=== PATIENT | female | born 1955 | race Caucasian/White ===

== ENCOUNTER 2016-12-01 11:06 | Emergency (ER) | payer MEDICAID ==
[2016-12-01] MEDS ORDERED: HYDROmorphone 1 MG/ML SYRINGE IM STA (11:37)
[2016-12-01] MEDS ORDERED: PROMETHAZINE 25 MG/1 ML VIAL IM STA (11:38)
[2016-12-01] MEDS ORDERED: DEXAMETHASONE 10 MG/ML VIAL PO STA (11:38)
[2016-12-01] MEDS ORDERED: DEXAMETHASONE 10 MG/ML VIAL ONE (11:40)
[2016-12-01] MEDS ORDERED: PROMETHAZINE 25 MG/1 ML VIAL ONE (11:40)
[2016-12-01] MEDS ORDERED: HYDROmorphone 1 MG/ML SYRINGE ONE (11:40)
[2016-12-01] MEDS ORDERED: CHERRY SYRUP 10 ML UDC PO ONE (11:40)
[2016-12-01] MEDS ORDERED: KETOROLAC 60 MG/2 ML VIAL IVP STA (12:24)
[2016-12-01] MEDS ORDERED: LORazepam 2 MG/ML SYRINGE IVP STA (12:25)
[2016-12-01] MEDS ORDERED: KETOROLAC 30 MG/ML VIAL ONE (12:44)
[2016-12-01] MEDS ORDERED: LORazepam 2 MG/ML SYRINGE ONE (12:45)
== END 2016-12-01 13:25 | disposition home or self-care (01) ==
DX: M54.41 Lumbago with sciatica, right side (principal); I10 Essential (primary) hypertension; I25.2 Old myocardial infarction; Z95.5 Presence of coronary angioplasty implant and graft; Z79.02 Long term (current) use of antithrombotics/antiplatelets; F17.200 Nicotine dependence, unspecified, uncomplicated
CPT/HCPCS: 96372; 96374; 96375; 99283; 99284; A9270; J1170; J2060

== ENCOUNTER 2017-01-25 09:21 | Emergency (ER) | payer MEDICAID ==
--- NOTE | 2017-01-25 10:11 | XRAY Preliminary Report ---
Exam: XR Chest 2 View PA/LAT IMPRESSION: No acute cardiopulmonary changes. [facility] SITE ID: [id number]
--- NOTE | 2017-01-25 10:13 | XRAY Report ---
EXAM: CHEST RADIOGRAPHY EXAM DATE: 01/25/2017 09:57 AM. CLINICAL HISTORY: Cough x 1 week. COMPARISON: 09/12/2016. TECHNIQUE: 2 views. FINDINGS: Heart size appears normal. No pulmonary consolidation or edema. No pleural effusion. Present tips elijah nt over the upper abdomen. IMPRESSION: No acute cardiopulmonary changes. [facility] Referring Provider Line: [phone] SITE ID: [id number]
[2017-01-25] MEDS ORDERED: CHERRY SYRUP 10 ML UDC PO ONE (10:25)
[2017-01-25] MEDS ORDERED: DEXAMETHASONE 10 MG/ML VIAL ONE (10:25)
[2017-01-25] MEDS: DEXAMETHASONE 10 MG/ML VIAL PO STA (10:28)
[2017-01-25] MEDS ORDERED: IPRATROPIUM/ALBUTEROL 3 ML NEB INH ONE (10:38)
[2017-01-25] MEDS: IPRATROPIUM/ALBUTEROL 3 ML NEB INH STA (10:50)
--- NOTE | 2017-01-25 11:20 | ED Physician Documentation ---
PD HPI DYSPNEA - Stated complaint Stated Complaint: SOA - Chief complaint Chief Complaint: Resp - History obtained from History obtained from: Patient - History of Present Illness Timing - onset: How many days ago (4) Timing - onset during: Rest Timing - duration: Days (4) Timing - details: Gradual onset, Still present Inciting event(s): URI Improved by: Inhaler/neb Worsened by: Coughing Associated symptoms: Cough, Wheezing Similar symptoms before: Diagnosis (asthma) Recently seen: Clinic (The patient has just been released by the vascular doctor to have her back surgery.) - Additional information Additional information: 61 y/o female with a 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 She did not feel like the inhaler helped that much with the dyspnea. Review of Systems Constitutional: reports: Chills, Fatigue. denies: Fever Eyes: denies: Decreased vision Ears: reports: Ear pain, Drainage/discharge Nose: reports: Rhinorrhea / runny nose, Congestion Throat: denies: Sore throat Cardiac: reports: Palpitations. 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 : None HEENT: None Psych: None Musculoskeletal: None Derm: None - Past Surgical History Past Surgical History: Yes General: Bowel surgery /WASTEWATER ANALYST: Hysterectomy Cardiovascular: Other - Present Medications Home Medications: Ambulatory Orders Medication Instructions Recorded Confirmed Diazepam 5 mg PO Q8H PRN 02/14/16 01/25/17 Estradiol [Divigel] 0.5 mg ORAL DAILY 02/14/16 01/25/17 Promethazine [Phenergan] 25 mg PO TID PRN 02/14/16 01/25/17 Fluoxetine HCl [Prozac] 60 mg PO DAILY 09/12/16 01/25/17 Hydrochlorothiazide 12.5 mg PO DAILY 09/12/16 01/25/17 Levothyroxine Sodium 150 mcg PO DAILY 09/12/16 01/25/17 Liothyronine Sodium 5 mcg PO BID 09/12/16 01/25/17 Cyclobenzaprine [Flexeril] 10 mg PO TID PRN #20 tablet 12/01/16 01/25/17 oxyCODONE/ACET 5/325 [Percocet 5 1 - 2 tab PO Q4-6H PRN #20 tablet 12/01/1607/04 mg/325 mg] Azithromycin [Zithromax] 250 mg PO DAILY #6 tablet 01/25/17 Dexamethasone 1 mg PO DAILY 01/25/17 01/25/17 - Allergies Allergies/Adverse Reactions: Allergies Allergy/AdvReac Type Severity Reaction Status Date / Time atorvastatin calcium * AdvReac Cramps Verified 09/12/16 12:47 [From Lipitor] codeine AdvReac Nausea Verified 09/11/16 16:42 simvastatin AdvReac Cramps Verified 09/12/16 12:47 - Social History Does the pt smoke?: Yes Smoking Status: Current every day smoker Does the pt drink ETOH?: No Does the pt have substance abuse?: Yes Substance Use and Type: Marijuana - Immunizations Immunizations are current?: No Immunizations: TDAP >10years/unknown - POLST Patient has POLST: No PD ED PE NORMAL - Vitals Vital signs reviewed: Yes (tachy, tachypneic and hypertensive ) - General General: No acute distress, Well developed/nourished - HEENT HEENT: Atraumatic, PERRL, EOMI, Other (The lerft TM is inflammed in the attic with rounding of the umbo. The right is clear. ) - Neck Neck: Supple, no meningeal sign, No bony TTP - Cardiac Cardiac: No murmur, Other (tachy ) - Respiratory Respiratory: Other (course breath sounds bilaterally with diminished air movement. ) - Abdomen Abdomen: Soft, Non tender - Back Back: No CVA TTP, No spinal TTP - Derm Derm: Normal color, Warm and dry, No rash - Extremities Extremities: No deformity, No edema - Neuro Neuro: No motor deficit, No sensory deficit - Psych Psych: Normal mood, Normal affect Results - Vitals Vitals: Vital Signs - 24 hr 01/25/17 01/25/17 01/25/17 09:25 10:50 12:14 Temperature 36.2 C L Heart Rate 101 H 78 86 Respiratory 28 H 20 20 Rate Blood Pressure 156/83 H 131/75 H O2 Saturation 97 95 Oxygen O2 Source Room air - Labs Labs: Laboratory Tests 01/25/17 01/25/17 01/25/17 11:55 11:55 11:55 WBC 12.0 H RBC 4.29 Hgb 13.5 Hct 38.9 MCV 90.7 MCH 31.5 H MCHC 34.8 RDW 15.2 H MPV 7.3 L Manual Slide Review Indicated Sodium Potassium Chloride Carbon Dioxide Anion Gap BUN Creatinine Estimated GFR (MDRD) Glucose Calcium Total Bilirubin AST ALT Alkaline Phosphatase Troponin I < 0.04 B-Natriuretic Peptide 45 Total Protein Albumin Globulin Albumin/Globulin Ratio Lipase 01/25/17 11:55 WBC RBC Hgb Hct MCV MCH MCHC RDW MPV Manual Slide Review Sodium 140 Potassium 3.5 Chloride 102 Carbon Dioxide 26 Anion Gap 12.0 BUN 23 H Creatinine 1.1 H Estimated GFR (MDRD) 50 L Glucose 100 Calcium 8.9 Total Bilirubin 0.7 AST 16 ALT 29 Alkaline Phosphatase 75 Troponin I B-Natriuretic Peptide Total Protein 6.7 Albumin 3.7 Globulin 3.0 Albumin/Globulin Ratio 1.2 Lipase 46 - Rads (name of study) 2 veiw chest Radiology: Prelim report reviewed (Impression: 1. Mild hyperinflation. 2. No acute disease.), EMP read indepedently, See rad report Departure - Departure Disposition: 01 Home, Self Care Clinical Impression: Otitis media Qualifiers: Otitis media type: suppurative Laterality: left Chronicity: acute Recurrence: not specified as recurrent Spontaneous tympanic membrane rupture: without spontaneous rupture Qualified Code(s): H66.002 - Acute suppurative otitis media without spontaneous rupture of ear drum, left ear Reactive airway disease Qualifiers: Asthma severity: mild intermittent Asthma complication type: with acute exacerbation Qualified Code(s): J45.21 - Mild intermittent asthma with (acute) exacerbation Instructions: ED Bronchitis Asthmatic, ED Otitis Media Acute Adult Follow-Up: Ino Bustos MD [Primary Care Provider] - Prescriptions: Azithromycin [Zithromax] 250 mg PO DAILY #6 tablet
[2017-01-25 12:15] VITALS: BP 131/75
[2017-01-25 12:16] LABS: BASOPHILS % (AUTO) 0.4 %; EOSINOPHILS # (AUTO) 0.1 10^3/uL (0.0-0.7); EOSINOPHILS % (AUTO) 0.9 %; HCT - HEMATOCRIT 38.9 % (37.0-47.0); HGB - HEMOGLOBIN 13.5 g/dL (12.0-16.0); LYMPHOCYTES # (AUTO) 1.7 10^3/uL (1.5-3.5); LYMPHOCYTES % (AUTO) 13.9 %; MEAN CORPUSCULAR HEMOGLOBIN 31.5 pg (27.0-31.0); MEAN CORPUSCULAR HGB CONC 34.8 g/dL (32.0-36.0); MEAN CORPUSCULAR VOLUME 90.7 fL (81.0-99.0); MEAN PLATELET VOLUME 7.3 fL (7.9-10.8); MONOCYTES # (AUTO) 0.4 10^3/uL (0.0-1.0); MONOCYTES % (AUTO) 3.3 %; NEUTROPHILS # (AUTO) 9.8 10^3/uL (1.5-6.6); NEUTROPHILS % (AUTO) 81.5 %; NUCLEATED RED BLOOD CELLS AUTO 0.1 /100WBC; RED BLOOD COUNT 4.29 10^6/uL (4.20-5.40); RED CELL DISTRIBUTION WIDTH 15.2 % (12.0-15.0)
[2017-01-25 12:18] LABS: ALBUMIN/GLOBULIN RATIO 1.2 (1.0-2.2); BILIRUBIN,TOTAL 0.7 mg/dL (0.2-1.0); CALCIUM 8.9 mg/dL (8.5-10.3); CREATININE 1.1 mg/dL (0.4-1.0); POTASSIUM 3.5 mmol/L (3.5-5.0); TOTAL PROTEIN 6.7 g/dL (6.7-8.2)
[2017-01-25 12:32] LABS: PLATELET ESTIMATE, MANUAL NORMAL (130-450,000) (NORMAL)
== END 2017-01-25 12:29 | disposition home or self-care (01) ==
LOC: ED 09:21
DX: J45.21 Mild intermittent asthma with (acute) exacerbation (principal); H66.002 Acute suppurative otitis media without spontaneous rupture of ear drum, left ear; I11.0 Hypertensive heart disease with heart failure; I50.9 Heart failure, unspecified; I25.2 Old myocardial infarction; E78.00 Pure hypercholesterolemia, unspecified; F17.200 Nicotine dependence, unspecified, uncomplicated
CPT/HCPCS: 71020; 80053; 83690; 83880; 84484; 85025; 94640; 99283; 99284

== ENCOUNTER 2017-02-03 08:45 | Emergency (ER) | payer MEDICAID ==
--- NOTE | 2017-02-03 09:49 | ED Physician Documentation ---
PD HPI BACK PAIN - Stated complaint Stated Complaint: BACK PAIN - Chief complaint Chief Complaint: Back Pain - History obtained from History obtained from: Patient - History of Present Illness Timing - onset: How many weeks ago (woorse the past 2 weeks) Timing - duration: Weeks (has had low back pain for over a year, but worse the past 2 weeks. No new injury.) Timing - details: Gradual onset, Waxing and waning Location: Lower Quality: Pain, Spasm Improves with: Rest. 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 : None HEENT: None Psych: None Musculoskeletal: None Derm: None - Past Surgical History Past Surgical History: Yes General: Bowel surgery /STRIPPER OPAQUER: Hysterectomy Cardiovascular: Other - Present Medications Home Medications: Ambulatory Orders Medication Instructions Recorded Confirmed Diazepam 5 mg PO Q8H PRN 02/14/16 02/03/17 Estradiol [Divigel] 0.5 mg ORAL DAILY 02/14/16 02/03/17 Promethazine [Phenergan] 25 mg PO TID PRN 02/14/16 02/03/17 Fluoxetine HCl [Prozac] 60 mg PO DAILY 09/12/16 02/03/17 Hydrochlorothiazide 12.5 mg PO DAILY 09/12/16 02/03/17 Levothyroxine Sodium 150 mcg PO DAILY 09/12/16 02/03/17 Liothyronine Sodium 5 mcg PO BID 09/12/16 02/03/17 Cyclobenzaprine [Flexeril] 10 mg PO TID PRN #20 tablet 12/01/16 02/03/17 oxyCODONE/ACET 5/325 [Percocet 5 1 - 2 tab PO Q4-6H PRN #20 tablet 12/01/16 mg/325 mg] Azithromycin [Zithromax] 250 mg PO DAILY #6 tablet 01/25/17 02/03/17 Dexamethasone 1 mg PO DAILY 01/25/17 02/03/17 Dimethazone 02/03/17 Oxycodone HCl/Acetaminophen 1 each PO Q6H PRN #20 tablet 02/03/17 [Percocet 5-325 mg Tablet] - Allergies Allergies/Adverse Reactions: Allergies Allergy/AdvReac Type Severity Reaction Status Date / Time atorvastatin calcium * AdvReac Cramps Verified 09/12/16 12:47 [From Lipitor] codeine AdvReac Nausea Verified 09/11/16 16:42 simvastatin AdvReac Cramps Verified 09/12/16 12:47 - Social History Does the pt smoke?: Yes Smoking Status: Current every day smoker Does the pt drink ETOH?: No Does the pt have substance abuse?: Yes Substance Use and Type: Marijuana - Immunizations Immunizations are current?: No Immunizations: TDAP >10years/unknown - POLST Patient has POLST: No PD ED PE NORMAL - Vitals Vital signs reviewed: Yes - General General: Alert and oriented X 3, Well developed/nourished - HEENT HEENT: Atraumatic - Cardiac Cardiac: RRR - Respiratory Respiratory: Clear bilaterally - Abdomen Abdomen: Soft, Non tender - Back Back: No spinal TTP (tender lumbar muscles both sides, right more than left) - Derm Derm: Normal color, Warm and dry, No rash - Neuro Neuro: Alert and oriented X 3, No motor deficit, No sensory deficit, Other (1+ reflexes at knees) Results - Vitals Vitals: Oxygen O2 Source Room air PD MEDICAL DECISION MAKING - ED course Complexity details: considered differential, d/w patient Departure - Departure Disposition: Home, Self Care Clinical Impression: Low back pain Qualifiers: Chronicity: chronic Back pain laterality: right Sciatica presence: with sciatica Sciatica laterality: sciatica of right side Qualified Code(s): M54.41 - Lumbago with sciatica, right side Condition: Stable Record reviewed to determine appropriate education?: Yes Instructions: ED Sciatica Prescriptions: Oxycodone HCl/Acetaminophen [Percocet 5-325 mg Tablet] 1 each PO Q6H PRN #20 tablet PRN Reason: Pain Comments: Usual medications with increased oxycodone to 1-2 every 4-6 hours as needed for acute flare up. Follow up with Pain Clinic Monday as planned. Return if worse symptoms. Discharge Date/Time: 02/03/17 11:23
[2017-02-03] MEDS ORDERED: HYDROmorphone 1 MG/ML SYRINGE IM STA (10:11)
[2017-02-03] MEDS ORDERED: KETOROLAC 60 MG/2 ML VIAL IM STA (10:11)
[2017-02-03] MEDS ORDERED: ONDANSETRON ODT 4 MG TABLET TL STA (10:11)
[2017-02-03] MEDS ORDERED: HYDROmorphone 1 MG/ML SYRINGE ONE (10:14)
[2017-02-03] MEDS ORDERED: KETOROLAC 60 MG/2 ML VIAL ONE (10:14)
[2017-02-03] MEDS ORDERED: ONDANSETRON ODT 4 MG TABLET ONE (10:14)
[2017-02-03 11:23] VITALS: BP 158/88
== END 2017-02-03 11:23 | disposition home or self-care (01) ==
LOC: ED 08:45
DX: M54.41 Lumbago with sciatica, right side (principal); I11.0 Hypertensive heart disease with heart failure; I50.9 Heart failure, unspecified; E78.00 Pure hypercholesterolemia, unspecified; I25.2 Old myocardial infarction; K21.9 Gastro-esophageal reflux disease without esophagitis; F17.200 Nicotine dependence, unspecified, uncomplicated
CPT/HCPCS: 96372; 99283; J1170; Q0162

== ENCOUNTER 2017-02-22 12:11 | Emergency (ER) | payer MEDICAID ==
[2017-02-22 12:20] VITALS: BP 168/102
== END 2017-02-22 15:05 | disposition left against medical advice (07) ==
LOC: ED 12:11
DX: Z53.21 Procedure and treatment not carried out due to patient leaving prior to being seen by health care provider (principal)

== ENCOUNTER 2017-02-23 07:46 | Emergency (ER) | payer MEDICAID ==
[2017-02-23] MEDS ORDERED: HYDROmorphone 1 MG/ML SYRINGE IM STA (08:16)
[2017-02-23] MEDS ORDERED: PROMETHAZINE 25 MG/1 ML VIAL IM STA (08:16)
[2017-02-23] MEDS ORDERED: HYDROmorphone 1 MG/ML SYRINGE ONE (08:21)
[2017-02-23] MEDS ORDERED: PROMETHAZINE 25 MG/1 ML VIAL ONE (08:21)
--- NOTE | 2017-02-23 09:02 | ED Physician Documentation ---
PD HPI BACK PAIN - Stated complaint Stated Complaint: BACK AND LEG PX - Chief complaint Chief Complaint: Back Pain - History obtained from History obtained from: Patient, Family (domestic partner) - History of Present Illness Timing - onset: Chronic (Worse during the past month, and especially during the past week, since stopping steroid therapy.) Timing - details: Still present Location: Lower Quality: Pain, Similar to prior episodes Associated symptoms: No: Fever, Weakness, Numbness, Incontinent of urine Worsened by: Movement Similar symptoms before: Work up / diagnostics (She underwent MRI of the lumbar spine one week ago, and is scheduled for procedure of her lumbar spine next week at [facility].) - Treatment prior to arrival Treatment prior to arrival: Percocet 2 tablets daily. - Additional information Additional information: The patient is a 61-year-old female who presents with lower back pain radiating down her right leg to her foot. She has a history of chronic back pain but complains that it has been getting worse for the past month, and particularly during the past week. She was seen by a painter hand one week ago , and dexamethasone was stopped at that time. She underwent an MRI of her lumbar spine and is reportedly scheduled for a procedure of her lumbar spine next week at [facility]. She denies recent fever, urinary incontinence, abdominal symptoms, numbness or weakness. She is currently taking Percocet 2 tablets daily. Her past medical history is significant for coronary artery disease for which she is status post coronary stents. 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 Review of Systems Constitutional: denies: Fever Nose: denies: Congestion Throat: denies: Sore throat Cardiac: denies: Chest pain / pressure Respiratory: denies: Dyspnea, Cough GI: denies: Abdominal Pain, Nausea, Vomiting : denies: Dysuria, Incontinent Skin: denies: Rash Musculoskeletal: reports: Back pain. 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 : None HEENT: None Psych: None Musculoskeletal: None Derm: None - Past Surgical History Past Surgical History: Yes General: Bowel surgery /COPIER OPERATOR: Hysterectomy Cardiovascular: Other - Present Medications Home Medications: Ambulatory Orders Medication Instructions Recorded Confirmed Diazepam 5 mg PO Q8H PRN 02/14/16 02/22/17 Estradiol [Divigel] 0.5 mg ORAL DAILY 02/14/16 02/22/17 Promethazine [Phenergan] 25 mg PO TID PRN 02/14/16 02/22/17 Fluoxetine HCl [Prozac] 60 mg PO DAILY 09/12/16 02/22/17 Hydrochlorothiazide 12.5 mg PO DAILY 09/12/16 02/22/17 Levothyroxine Sodium 150 mcg PO DAILY 09/12/16 02/22/17 Liothyronine Sodium 5 mcg PO BID 09/12/16 02/22/17 Cyclobenzaprine [Flexeril] 10 mg PO TID PRN #20 tablet 12/01/16 02/22/17 Oxycodone HCl/Acetaminophen 1 each PO Q6H PRN #20 tablet 02/03/17 02/22/17 [Percocet 5-325 mg Tablet] Omeprazole [PriLOSEC] 10 mg PO 02/22/17 oxyCODONE/ACET 5/325 [Percocet 5 1 - 2 tab PO Q4-6H PRN #15 tablet 02/23/17 mg/325 mg] - Allergies Allergies/Adverse Reactions: Allergies Allergy/AdvReac Type Severity Reaction Status Date / Time atorvastatin calcium * AdvReac Cramps Verified 02/22/17 12:19 [From Lipitor] codeine AdvReac Nausea Verified 02/22/17 12:19 simvastatin AdvReac Cramps Verified 02/22/17 12:19 - Social History Does the pt smoke?: Yes Smoking Status: Current every day smoker Does the pt drink ETOH?: No Does the pt have substance abuse?: Yes - Immunizations Immunizations are current?: No Immunizations: TDAP >10years/unknown - POLST Patient has POLST: No PD ED PE NORMAL - Vitals Vital signs reviewed: Yes (borderline hypertension) - General General: Alert and oriented X 3, Other (Overweight, deconditioned female.) - HEENT HEENT: Atraumatic, EOMI, Pharynx benign - Neck Neck: No bony TTP, No JVD - Cardiac Cardiac: RRR, No murmur - Respiratory Respiratory: No respiratory distress, Clear bilaterally - Abdomen Abdomen: Soft, Non tender - Back Back: No CVA TTP, Other (Tenderness to palpation in the right paralumbar region , and over the right sciatic notch.) - Derm Derm: No rash - Extremities Extremities: No edema, No calf tenderness / cord, Other (Straight leg raise is positive on the right at 30 elevation. Negative on the left.) - Neuro Neuro: Alert and oriented X 3, No motor deficit, No sensory deficit, Other ( Normal perianal sensation.) Results - Vitals Vitals: Oxygen O2 Source Room air PD MEDICAL DECISION MAKING - ED course Complexity details: reviewed old records, reviewed results, re-evaluated patient , considered differential, d/w patient, d/w family ED course: The patient's presentation is significant for acute exacerbation of chronic low back pain, with right-sided sciatica. There is no clinical evidence to suggest epidural abscess, or cauda equina syndrome. Treatment in the emergency department included administration of hydromorphone 2 mg IM, with Phenergan 12.5 mg IM. This decreased the patient's discomfort. I discussed with her and her casualty underwriter symptomatic treatment, outpatient follow-up, as well as potentially worrisome signs or symptoms that should prompt reevaluation in the emergency department. Departure - Departure Disposition: 01 Home, Self Care Clinical Impression: Low back pain Qualifiers: Chronicity: acute Back pain laterality: right Sciatica presence: with sciatica Sciatica laterality: sciatica of right side Qualified Code(s): M54.41 - Lumbago with sciatica, right side Sciatica Qualifiers: Laterality: right Qualified Code(s): M54.31 - Sciatica, right side Condition: Stable Instructions: ED Sciatica Follow-Up: Ino Bustos MD [Primary Care Provider] - Prescriptions: oxyCODONE/ACET 5/325 [Percocet 5 mg/325 mg] 1 - 2 tab PO Q4-6H PRN #15 tablet PRN Reason: Pain Comments: 1) Apply ice pack intermittently. 2) Continue using Percocet as prescribed, if needed for pain. 3)Follow up with the Back Specialist as planned. 4) Return to Emergency if you develop increasing pain, fever, increasing numbness or weakness, or otherwise worsening symptoms. Discharge Date/Time: 02/23/17 09:16
[2017-02-23 09:14] VITALS: BP 125/83
== END 2017-02-23 09:16 | disposition home or self-care (01) ==
LOC: ED 07:46
DX: M54.41 Lumbago with sciatica, right side (principal); I11.0 Hypertensive heart disease with heart failure; I50.9 Heart failure, unspecified; E78.00 Pure hypercholesterolemia, unspecified; I25.2 Old myocardial infarction; K21.9 Gastro-esophageal reflux disease without esophagitis; F17.200 Nicotine dependence, unspecified, uncomplicated
CPT/HCPCS: 96372; 99283; 99284; J1170

== ENCOUNTER 2017-06-09 07:50 | Emergency (ER) | payer MEDICAID ==
[2017-06-09] MEDS ORDERED: NITROGLYCERIN SL 0.4 MG TABLET SL STA (08:11)
[2017-06-09] MEDS ORDERED: ASPIRIN CHEW 81 MG TABLET PO STA (08:11)
--- NOTE | 2017-06-09 08:19 | ED Physician Documentation ---
History of Present Illness - Stated complaint Stated Complaint: CHEST PX, SOA, HIGH BP, FAST PULSE - Chief complaint Chief Complaint: General - Additonal information Additional information: hx from pt 61 f hx CAD s/p 2 stents January 2016 revised Jul 2016 Prov Rahul not in asa or plavix all to statin BP was too low for BB also to ER today with cp and soa states she has been having int chest pain for a while now but yesterday became very soa, again having int sharp chest pain and then approx 1 hr of severe R posterior shoulder pain no travel no leg swelling chronic leg pain 2/2 back issues no fever cough PD PAST MEDICAL HISTORY - Past Medical History Past Medical History: Yes Cardiovascular: Congestive heart failure, Hypertension, High cholesterol, [place] Respiratory: None Neuro: None Endocrine/Autoimmune: None GI: GERD, Other 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 : None HEENT: None Psych: None Musculoskeletal: None Derm: None - Past Surgical History Past Surgical History: Yes General: Bowel surgery /RESIDENTIAL REMODELING 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: Hysterectomy Cardiovascular: Other - Present Medications Home Medications: Ambulatory Orders Medication Instructions Recorded Confirmed Diazepam 5 mg PO Q8H PRN 02/14/16 02/22/17 Estradiol [Divigel] 0.5 mg ORAL DAILY 02/14/16 02/22/17 Promethazine [Phenergan] 25 mg PO TID PRN 02/14/16 02/22/17 Fluoxetine HCl [Prozac] 60 mg PO DAILY 09/12/16 02/22/17 Hydrochlorothiazide 12.5 mg PO DAILY 09/12/16 02/22/17 Levothyroxine Sodium 150 mcg PO DAILY 09/12/16 02/22/17 Liothyronine Sodium 5 mcg PO BID 09/12/16 02/22/17 Cyclobenzaprine [Flexeril] 10 mg PO TID PRN #20 tablet 12/01/16 02/22/17 Oxycodone HCl/Acetaminophen 1 each PO Q6H PRN #20 tablet 02/03/17 02/22/17 [Percocet 5-325 mg Tablet] Omeprazole [PriLOSEC] 10 mg PO 02/22/17 oxyCODONE/ACET 5/325 [Percocet 5 1 - 2 tab PO Q4-6H PRN #15 tablet 02/23/17 mg/325 mg] - Allergies Allergies/Adverse Reactions: Allergies Allergy/AdvReac Type Severity Reaction Status Date / Time atorvastatin calcium * AdvReac Cramps Verified 02/22/17 12:19 [From Lipitor] codeine AdvReac Nausea Verified 02/22/17 12:19 simvastatin AdvReac Cramps Verified 02/22/17 12:19 - Social History Does the pt smoke?: Yes Smoking Status: Current every day smoker Does the pt drink ETOH?: No Does the pt have substance abuse?: Yes - Immunizations Immunizations are current?: No Immunizations: TDAP >10years/unknown - POLST Patient has POLST: No PD ED PE NORMAL - Vitals Vital signs reviewed: Yes - Cardiac Cardiac: RRR - Respiratory Respiratory: Clear bilaterally. No: No respiratory distress (mildly labored and tachypneic) - Abdomen Abdomen: Soft, Non tender - Derm Derm: Normal color - Extremities Extremities: No deformity, Other (+ leg pain but now new) - Neuro Neuro: Alert and oriented X 3, No motor deficit, No sensory deficit - Psych Psych: Normal mood Results - Vitals Vitals: Vital Signs - 24 hr 06/09/17 06/09/17 06/09/17 07:55 08:56 09:00 Temperature 36.9 C Heart Rate 77 70 72 Respiratory 20 23 24 Rate Blood Pressure 139/97 H 102/68 122/79 O2 Saturation 97 95 95 06/09/17 06/09/17 06/09/17 09:30 10:00 10:30 Temperature Heart Rate 70 66 62 Respiratory 18 24 21 Rate Blood Pressure 107/75 110/70 115/69 O2 Saturation 95 96 95 06/09/17 13:01 Temperature Heart Rate 65 Respiratory 22 Rate Blood Pressure 136/84 H O2 Saturation 93 Oxygen O2 Source Room air - EKG (time done) 0806 Rate: Rate (enter#) (77) Rhythm: NSR Browder: Normal Other comments: Other comments (pt shaky and there is so much baseline artifact it is very difficult to asses for ST elev or depr) 0939 Rate: Rate (enter#) (67) Rhythm: NSR Intervals: Normal MD Ischemia: Q waves (inf), Non specific changes (slightly flattened T waves laterall) Compare to prior EKG: Changed from prior EKG (better EKG with less artifact then EKG #1) - Labs Labs: Laboratory Tests 09/06/09/17 06/09/17 08:40 08:40 08:40 WBC 13.3 H RBC 4.31 Hgb 13.9 Hct 38.9 MCV 90.2 MCH 32.2 H MCHC 35.6 RDW 13.4 Plt Count 228 MPV 6.7 L Neut # 9.8 H Lymph # 2.7 Story # 0.7 Eos # 0.0 Baso # 0.1 Absolute Nucleated RBC 0.00 Nucleated RBCs 0.0 D-Dimer > 1050.0 H Sodium 142 Potassium 3.4 L Chloride 105 Carbon Dioxide 24 Anion Gap 13.0 BUN 21 H Creatinine 1.1 H Estimated GFR (MDRD) 50 L Glucose 85 Calcium 9.7 Total Bilirubin 0.8 AST 21 ALT 28 Alkaline Phosphatase 85 Troponin I B-Natriuretic Peptide Total Protein 7.3 Albumin 4.0 Globulin 3.3 Albumin/Globulin Ratio 1.2 Lipase 06/09/17 06/09/17 06/09/17 08:40 08:40 11:20 WBC RBC Hgb Hct MCV MCH MCHC RDW Plt Count MPV Neut # Lymph # Story # Eos # Baso # Absolute Nucleated RBC Nucleated RBCs D-Dimer Sodium Potassium Chloride Carbon Dioxide Anion Gap BUN Creatinine Estimated GFR (MDRD) Glucose Calcium Total Bilirubin AST ALT Alkaline Phosphatase Troponin I 0.08 0.08 B-Natriuretic Peptide 119 H Total Protein Albumin Globulin Albumin/Globulin Ratio Lipase - Rads (name of study) CXR Radiology: See rad report (NACPD) CTPA Radiology: See rad report (extensive richard pulm emboli with RV strain and infarcts , also occluded prox SMA stent ) PD MEDICAL DECISION MAKING - ED course ED course: bilateral main pulm artery emboli with infacrts and R heart strain but not hypotension, also possible SMA occlusion started heparin and will transfer to tertiary care facility where IR TPA is available spoke to hospitalist and grey percher at [facility] and they accept pt in transfer Departure - Departure Disposition: 02 Transfer Acute Care Hosp Clinical Impression: Pulmonary embolism and infarction
[2017-06-09] MEDS ORDERED: NITROGLYCERIN SL 0.4 MG TABLET SL ONE (08:25)
[2017-06-09] MEDS ORDERED: ASPIRIN CHEW 81 MG TABLET ONE (08:25)
[2017-06-09] MEDS ORDERED: SODIUM CHLORIDE FLUSH 0.9% 10 ML SYRINGE IVP ONE (08:45)
--- NOTE | 2017-06-09 08:48 | XRAY Preliminary Report ---
Exam: XR Chest 1 View IMPRESSION: Negative for acute cardiopulmonary process or cardiomegaly. [facility] SITE ID: [id number]
--- NOTE | 2017-06-09 08:51 | XRAY Report ---
EXAM: CHEST RADIOGRAPHY EXAM DATE: 06/09/2017 08:31 AM. CLINICAL HISTORY: Soa, chest pain. COMPARISON: 01/25/2017. TECHNIQUE: 1 view. FINDINGS: Lungs/Pleura: No focal opacities evident. No pleural effusion. No pneumothorax. Mediastinum: Within exam limitations, cardiomediastinal contour is normal. IMPRESSION: Negative for acute cardiopulmonary process or cardiomegaly. [facility] Referring Provider Line: [phone] SITE ID: [id number]
[2017-06-09 08:59] LABS: BASOPHILS # (AUTO) 0.1 10^3/uL (0.0-0.1); BASOPHILS % (AUTO) 0.7 %; EOSINOPHILS % (AUTO) 0.2 %; HCT - HEMATOCRIT 38.9 % (37.0-47.0); HGB - HEMOGLOBIN 13.9 g/dL (12.0-16.0); LYMPHOCYTES # (AUTO) 2.7 10^3/uL (1.5-3.5); LYMPHOCYTES % (AUTO) 20.2 %; MEAN CORPUSCULAR HEMOGLOBIN 32.2 pg (27.0-31.0); MEAN CORPUSCULAR HGB CONC 35.6 g/dL (32.0-36.0); MEAN CORPUSCULAR VOLUME 90.2 fL (81.0-99.0); MEAN PLATELET VOLUME 6.7 fL (7.9-10.8); MONOCYTES # (AUTO) 0.7 10^3/uL (0.0-1.0); MONOCYTES % (AUTO) 5.4 %; NEUTROPHILS # (AUTO) 9.8 10^3/uL (1.5-6.6); NEUTROPHILS % (AUTO) 73.5 %; RED BLOOD COUNT 4.31 10^6/uL (4.20-5.40); RED CELL DISTRIBUTION WIDTH 13.4 % (12.0-15.0); UNCORRECTED WHITE BLOOD COUNT 13.3 x10^3/uL; WHITE BLOOD COUNT 13.3 x10^3/uL (4.8-10.8)
[2017-06-09 09:41] LABS: ALBUMIN/GLOBULIN RATIO 1.2 (1.0-2.2); BILIRUBIN,TOTAL 0.8 mg/dL (0.2-1.0); CALCIUM 9.7 mg/dL (8.5-10.3); CREATININE 1.1 mg/dL (0.4-1.0); POTASSIUM 3.4 mmol/L (3.5-5.0); TOTAL PROTEIN 7.3 g/dL (6.7-8.2)
[2017-06-09] MEDS ORDERED: IOPAMIDOL-300 100 ML VIAL ONE (11:38)
[2017-06-09] MEDS ORDERED: IOPAMIDOL-300 100 ML VIAL IVP ONE (12:07)
[2017-06-09] MEDS ORDERED: HEPARIN 5,000 UNIT/ML VIAL IVP ONE (12:39)
[2017-06-09] MEDS ORDERED: HEPARIN 25000UNITS/500ML (D5W) 500 ML IV STA (12:39)
[2017-06-09] MEDS ORDERED: HEPARIN 5,000 UNIT/ML VIAL ONE (12:48)
[2017-06-09] MEDS ORDERED: HEPARIN 25000UNITS/500ML (D5W) 500 ML IV ONE (12:48)
--- NOTE | 2017-06-09 13:00 | CT Report ---
EXAM: CT ANGIOGRAM CHEST EXAM DATE: 06/09/2017 12:08 PM. CLINICAL HISTORY: Cp soa d dimer too high to calculate. COMPARISON: None. TECHNIQUE: Routine helical imaging was performed through the chest in the pulmonary arterial phase. I V Contrast: 80 cc of Isovue 300. Reconstructions: Coronal 3-D MIP reconstructions.Sagittal and anderson l. In accordance with CT protocol optimization, one or more of the following dose reduction techniques w ere utilized for this exam: automated exposure control, adjustment of mA and/or KV based on patient s ize, or use of iterative reconstructive technique. FINDINGS: There is adequate opacification of the pulmonary arteries extensive pulmonary emboli are seen within the distal right and left main pulmonary emboli extending into the upper, middle and lower lobes of b oth lungs. These are most advanced in the right lower lobe of the lung. The RV LV ratio is approximat mauricio 1.6. Contrast is seen within the hepatic vein. There is no evidence of a saddle embolus. Increase d lung markings are noted within the anterior aspect of the right upper lobe of the lung. The largest area measures approximately 1.4 x 1.1 cm (image 45 of series 6). There is no pleural effusion or pneumothorax seen. A stent is noted within the SMA. It appears to be occluded. No enhancing lesion is seen within the upper abdomen. There is no mediastinal mass or lymphadenopathy. Atherosclerosis of the aorta is noted. Limited visualization of the splenic flexure of the colon is without evidence of mucosal thickening. Impression: Extensive bilateral pulmonary emboli with probable RV strain. Peripheral based areas of increased lung markings that may represent infarcts within the anterior asp ect of the right upper lobe of the lung. These could also represent infiltrates and less likely atele ctasis. Critical result: Findings discussed with Dr. Gamez at 12:40 PM on 06/09/2017. Stent within the proximal SMA that appears to be occluded. The appearance is less likely secondary to beam hardening artifact. This was discussed with Dr. Gamez at 12:54 PM on 06/09/2017. [facility] Referring Provider Line: [phone] SITE ID: [id number]
[2017-06-09 16:05] VITALS: BP 140/76
== END 2017-06-09 16:03 | disposition short-term general hospital (02) ==
LOC: ED 07:50
DX: I26.99 Other pulmonary embolism without acute cor pulmonale (principal); I25.10 Atherosclerotic heart disease of native coronary artery without angina pectoris; Z95.5 Presence of coronary angioplasty implant and graft
CPT/HCPCS: 36415; 71010; 71275; 80053; 83690; 83880; 84484; 85025; 85379; 93005; 96374; 96376; 99284; A9270; Q9967

== ENCOUNTER 2017-07-02 03:54 | Observation (INO) | payer MEDICAID ==
[2017-07-02] MEDS ORDERED: NITROGLYCERIN SL 0.4 MG TABLET SL STA (04:06)
[2017-07-02] MEDS ORDERED: ASPIRIN CHEW 81 MG TABLET PO STA (04:08)
--- NOTE | 2017-07-02 04:11 | ED Physician Documentation ---
PD HPI CHEST PAIN - Stated complaint Stated Complaint: L ARM/CHEST PAIN - Chief complaint Chief Complaint: Cardiac - History obtained from History obtained from: Patient, Family - History of Present Illness Timing - onset: How many minutes ago (30) Timing - onset during: Sleep Timing - duration: Minutes (30) Timing - details: Abrupt onset Pain level max: 5 Pain level now: 2 Quality: Pressure, Tightness, Sharp, Like prior ACS Location: Substernal Radiation: Other (L arm) Improved by: Nothing Worsened by: No: Exertion, Inspiration, Eating, Movement, Palpation, Position Associated symptoms: No: Shortness of air, Diaphoresis, Nausea, Vomiting, Feeling faint / dizzy, General Weakness, Palpitations, Cough Similar symptoms before: Diagnosis (ACS, Bilateral PE) - Additional information Additional information: Patient is a 61-year-old female who has a history of 2 abdominal stents, both placed in 2016 at [facility] in [place]. Had an SMA stent occlusion approximately 3 weeks ago along with bilateral pulmonary emboli. States that she received medicine through a catheter from her groin as well as being placed on Xarelto. Is not currently on aspirin. States she is currently taking Xarelto twice a day. Also states that she has had difficulty lifting the left arm for the past few days. States pain with lifting of the arm. Describes pain in the deltoid. Does not recall any trauma. Patient also states that she has been treated for pneumonia with levofloxacin. Has not had a chest x-ray. States her doctor is treating her off of clinical symptoms of cough. No fevers. Review of Systems Ten Systems: 10 systems reviewed and negative Constitutional: denies: Fever, Chills Ears: denies: Ear pain Nose: denies: Rhinorrhea / runny nose, Congestion Throat: denies: Sore throat Respiratory: reports: Cough (for several weeks.). 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5 mg PO DAILY 09/12/16 02/22/17 Cyclobenzaprine [Flexeril] 10 mg PO TID PRN #20 tablet 12/01/16 02/22/17 Oxycodone HCl/Acetaminophen 1 each PO Q6H PRN #20 tablet 02/03/17 02/22/17 [Percocet 5-325 mg Tablet] Omeprazole [PriLOSEC] 10 mg PO 02/22/17 Rivaroxaban [Xarelto] 1 tab PO BID 07/02/17 07/02/17 - Allergies Allergies/Adverse Reactions: Allergies Allergy/AdvReac Type Severity Reaction Status Date / Time atorvastatin calcium * AdvReac Cramps Verified 07/02/17 04:04 [From Lipitor] codeine AdvReac Nausea Verified 07/02/17 04:04 simvastatin AdvReac Cramps Verified 07/02/17 04:04 - Social History Does the pt smoke?: Yes Smoking Status: Current every day smoker Does the pt drink ETOH?: No Does the pt have substance abuse?: Yes - Immunizations Immunizations are current?: No Immunizations: TDAP >10years/unknown - POLST Patient has POLST: No PD ED PE NORMAL - Vitals Vital signs reviewed: Yes - General General: Alert and oriented X 3, No acute distress, Well developed/nourished - HEENT HEENT: PERRL, Moist mucous membranes - Neck Neck: Supple, no meningeal sign - Cardiac Cardiac: RRR, Strong equal pulses - Respiratory Respiratory: No respiratory distress, Clear bilaterally - Abdomen Abdomen: Soft, Non tender, Non distended - Derm Derm: Warm and dry - Extremities Extremities: No edema, No calf tenderness / cord, Other (TTP over the L deltoid , reproduces her pain. NVI including the axillary nerve) - Neuro Neuro: Alert and oriented X 3 - Psych Psych: Normal mood, Normal affect Results - Vitals Vitals: Vital Signs - 24 hr 07/02/17 07/02/17 07/02/17 04:00 04:29 04:38 Temperature 36.8 C Heart Rate 83 73 72 Respiratory 18 18 18 Rate Blood Pressure 130/91 H 87/59 L 103/73 O2 Saturation 98 100 94 07/02/17 04:40 Temperature Heart Rate 75 Respiratory 20 Rate Blood Pressure O2 Saturation Oxygen O2 Source Room air - EKG (time done) 0400 Rate: Rate (enter#) (77) Rhythm: NSR Grayling: Normal Intervals: Normal MO QRS: Normal Ischemia: Other (minimal ST depression 1, aVL) Compare to prior EKG: Unchanged from prior EKG - Labs Labs: Laboratory Tests 07/02/17 07/02/17 07/02/17 04:10 04:10 04:10 WBC 6.5 RBC 4.18 L Hgb 12.8 Hct 37.3 MCV 89.4 MCH 30.7 MCHC 34.4 RDW 13.1 Plt Count 316 MPV 7.1 L Neut # 3.6 Lymph # 2.1 [place] # 0.5 Eos # 0.1 Baso # 0.0 Absolute Nucleated RBC 0.01 Nucleated RBC % 0.1 Sodium 140 Potassium 2.6 L Chloride 106 Carbon Dioxide 25 Anion Gap 9.0 BUN 13 Creatinine 1.2 H Estimated GFR (MDRD) 46 L Glucose 100 Calcium 9.1 Total Bilirubin 0.8 AST 22 ALT 19 Alkaline Phosphatase 81 Troponin I < 0.04 Total Protein 6.9 Albumin 3.8 Globulin 3.1 Albumin/Globulin Ratio 1.2 Lipase 38 - Rads (name of study) cxr Radiology: Prelim report reviewed, EMP read contemporaneously, See rad report ( no acute disease) PD MEDICAL DECISION MAKING - ED course Complexity details: reviewed old records, reviewed results, re-evaluated patient , considered differential (No ST elevation [place], no aortic dissection, no PE, no tension pneumothorax, no aortic aneurysm), d/w patient, d/w family, d/w document management consultant ED course: Patient is a 61-year-old female with a history of bilateral pulmonary embolism as well as superior mesenteric or artery stents. Tonight she developed chest pain while sleeping that awoke her from sleep. Last approximately 30 minutes. Resolved with a dose of nitroglycerin here. Did become slightly hypotensive after the nitroglycerin. Chest pain did not recur. Given aspirin here. Is on Xarelto at home for the bilateral pulmonary emboli. Sounds as if she received intravenous TPA for the bilateral PEs. States she has had a heart attack but no cardiac stents. No acute findings on chest x-ray. Feels like she can breathe easier after DuoNeb. Potassium was also found to be low and this was replaced. Discussed the case with Dr. Hauser for cardiac rule out, accepts for observation. This document was made in part using voice recognition software. While efforts are made to proofread this document, sound alike and grammatical errors may occur. Also appears to have a L deltoid contusion. Will use supportive care for this. Departure - Departure Disposition: ED Place in Observation Clinical Impression: Viral URI Chest pain Qualifiers: Chest pain type: unspecified Qualified Code(s): R07.9 - Chest pain, unspecified Contusion of left deltoid region Qualifiers: Encounter type: initial encounter Qualified Code(s): S40.012A - Contusion of left shoulder, initial encounter Condition: Stable
[2017-07-02] MEDS ORDERED: ASPIRIN 325 MG TABLET PO ONE (04:23)
[2017-07-02] MEDS ORDERED: NITROGLYCERIN SL 0.4 MG TABLET SL ONE (04:24)
[2017-07-02 04:30] LABS: BASOPHILS % (AUTO) 0.8 %; EOSINOPHILS # (AUTO) 0.1 10^3/uL (0.0-0.7); HCT - HEMATOCRIT 37.3 % (37.0-47.0); HGB - HEMOGLOBIN 12.8 g/dL (12.0-16.0); LYMPHOCYTES # (AUTO) 2.1 10^3/uL (1.5-3.5); LYMPHOCYTES % (AUTO) 33.1 %; MEAN CORPUSCULAR HEMOGLOBIN 30.7 pg (27.0-31.0); MEAN CORPUSCULAR HGB CONC 34.4 g/dL (32.0-36.0); MEAN CORPUSCULAR VOLUME 89.4 fL (81.0-99.0); MEAN PLATELET VOLUME 7.1 fL (7.9-10.8); MONOCYTES # (AUTO) 0.5 10^3/uL (0.0-1.0); MONOCYTES % (AUTO) 8.5 %; NEUTROPHILS # (AUTO) 3.6 10^3/uL (1.5-6.6); NEUTROPHILS % (AUTO) 55.6 %; NUCLEATED RED BLOOD CELLS AUTO 0.1 /100WBC; RED BLOOD COUNT 4.18 10^6/uL (4.20-5.40); RED CELL DISTRIBUTION WIDTH 13.1 % (12.0-15.0); UNCORRECTED WHITE BLOOD COUNT 6.5 x10^3/uL; WHITE BLOOD COUNT 6.5 x10^3/uL (4.8-10.8)
[2017-07-02] MEDS ORDERED: IPRATROPIUM/ALBUTEROL 3 ML NEB INH STA (04:31)
--- NOTE | 2017-07-02 04:37 | XRAY Preliminary Report ---
Exam: XR CHEST 1 VIEW IMPRESSION: 1. No acute abnormality seen in the chest. [facility] SITE ID: [id number]
--- NOTE | 2017-07-02 04:40 | XRAY Report ---
EXAM: CHEST RADIOGRAPHY EXAM DATE: 07/02/2017 04:23 AM. CLINICAL HISTORY: Chest pain. COMPARISON: 01/25/2017. TECHNIQUE: 1 view. FINDINGS: Lungs/Pleura: No alveolar consolidation or pleural effusion. No pneumothorax. Mediastinum: Within exam limitations, the cardiomediastinal contour is normal. Other: None. IMPRESSION: 1. No acute abnormality seen in the chest. [facility] Referring Provider Line: [phone] SITE ID: [id number]
[2017-07-02 04:41] LABS: ALBUMIN/GLOBULIN RATIO 1.2 (1.0-2.2); BILIRUBIN,TOTAL 0.8 mg/dL (0.2-1.0); CALCIUM 9.1 mg/dL (8.5-10.3); CREATININE 1.2 mg/dL (0.4-1.0); POTASSIUM 2.6 mmol/L (3.5-5.0); TOTAL PROTEIN 6.9 g/dL (6.7-8.2)
[2017-07-02] MEDS ORDERED: POTASSIUM BICARB 25 MEQ TABLET PO STA (04:42)
[2017-07-02] MEDS ORDERED: IPRATROPIUM/ALBUTEROL 3 ML NEB INH ONE (04:52)
[2017-07-02] MEDS ORDERED: POTASSIUM BICARB 25 MEQ TABLET PO ONE (05:12)
[2017-07-02] MEDS ORDERED: diazePAM 5 MG TABLET PO PRN (05:23)
[2017-07-02] MEDS ORDERED: CYCLOBENZAPRINE 10 MG TABLET PO PRN (05:23)
[2017-07-02] MEDS ORDERED: ONDANSETRON 4 MG/2 ML VIAL IVP PRN (05:23)
[2017-07-02] MEDS ORDERED: PROCHLORPERAZINE 10 MG/2 ML VIAL IVP PRN (05:23)
[2017-07-02] MEDS ORDERED: MORPHINE 2 MG/ML SYRINGE IVP PRN (05:23)
[2017-07-02] MEDS ORDERED: ACETAMINOPHEN 325 MG TABLET PO PRN (05:23)
[2017-07-02] MEDS ORDERED: NITROGLYCERIN SL 0.4 MG TABLET SL PRN (05:23)
[2017-07-02] MEDS ORDERED: PROMETHAZINE 25 MG/1 ML VIAL IM PRN (05:23)
[2017-07-02] MEDS ORDERED: SODIUM CHLORIDE FLUSH 0.9% 10 ML SYRINGE IVP PRN (05:23)
[2017-07-02] MEDS ORDERED: HYDROcod/ACETAM 5/325 MG TABLET PO PRN (05:23)
--- NOTE | 2017-07-02 05:30 | HISTORY & PHYSICAL EXAMINATION ---
Chief Complaint - Chief Complaint Chief Complaint: Chest Pain History of Present Illness - Admitted From Admitted From:: Emergency Department - History Obtained From Records Reviewed: Yes History obtained from: Patient Exam Limitations: None - History of Present Illness HPI Comment/Other: Patient is a 61-year-old female with a past medical history significant for recent diagnosis of bilateral pulmonary embolism in May 2017 status post directed TPA currently on Xarelto, recent episode of pneumonia status post antibiotic treatment completed yesterday, history of mesenteric ischemia status post stenting of the superior mesenteric artery, hypertension, degenerative disc disease, history of cervical cancer status post hysterectomy, hypothyroidism, depression and history of MA who presented to the emergency department with a chief complaint of chest pain. The patient states that she was awoken from her sleep at 3 AM with sudden onset of substernal chest pain. The patient states that the chest pain radiated to her left shoulder and left arm. She does admit that she has been having pain in the left shoulder and left arm for the last 3 days but noticed that it was worse when she had this episode of chest pain this morning. The patient states that the pain was a 7 out of 10 and was associated with nausea but no increased shortness of breath or palpitations. The patient also denies any diaphoresis or lightheadedness. The patient states that the pain was constant and started at rest she did not take anything for the pain prior to coming into the emergency department. She does state that once she received nitroglycerin in the emergency department the pain did improve however the pain was still present when I saw her in the emergency department however it was only 2 out of 10. The patient states the pain was sharp. The patient does admit to feeling nauseated and having vomited several times over the last week. The patient states that the pain currently is very mild in her chest and mostly located in between her shoulder blades. Patient denies any headaches, blurred vision, runny nose, sore throat, she does continue to have cough that has persisted over the last several weeks. The patient denies any difficulty swallowing, abdominal pain, diarrhea, constipation , urinary urgency, urinary frequency, dysuria, joint swelling or joint tenderness, changes in her appetite, recent unintentional weight loss or any focal neurologic deficits. On presentation to the emergency department the patient was afebrile and vital signs were within normal limits. The patient's presenting EKG showed normal sinus rhythm with minimal ST depressions in lead I and aVL but no ST elevations. The patient's initial troponin was negative. The patient did have significant hypokalemia with a potassium of 2.6 but remainder of blood work was within normal limits. The patient was given a dose of nitroglycerin, a nebulizer treatment and potassium in the emergency department. The patient was placed in observation for rule out of acute coronary syndrome. 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 ) : reports: None HEENT: reports: None Psych: reports: None Musculoskeletal: reports: Osteoarthritis (Degenerative Disk disease) Derm: reports: None MRSA Hx?: No - Past Surgical History General: reports: 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 She is previously lived in [place] but moved to [facility] about 2 years ago. The patient is retired and was originally from [place] she has 3 children. The patient rarely drinks alcohol. She smoked a pack a day but has recently quit. She denies any illicit drug use. - Substance History Use: Uses substance without health or social issues: NONE Abuse: Recurrent use of substance despite neg consequences: NONE Dependence: Experiences withdrawal or developed tolerances: NONE - POLST Patient has POLST: No POLST Status: Full Code Meds/Allgy - Home Medications Home Medications: Ambulatory Orders Medication Instructions Recorded Confirmed Diazepam 5 mg PO Q8H PRN 02/14/16 02/22/17 Estradiol [Divigel] 0.5 mg ORAL DAILY 02/14/16 02/22/17 Promethazine [Phenergan] 25 mg PO TID PRN 02/14/16 02/22/17 Fluoxetine HCl [Prozac] 60 mg PO DAILY 12/26/16 06/07/17 Hydrochlorothiazide 12.5 mg PO DAILY 09/12/16 02/22/17 Cyclobenzaprine [Flexeril] 10 mg PO TID PRN #20 tablet 12/01/16 02/22/17 Oxycodone HCl/Acetaminophen 1 each PO Q6H PRN #20 tablet 02/03/17 02/22/17 [Percocet 5-325 mg Tablet] Omeprazole [PriLOSEC] 10 mg PO 02/22/17 Rivaroxaban [Xarelto] 1 tab PO BID 07/02/17 07/02/17 - Allergies Allergies/Adverse Reactions: Allergies Allergy/AdvReac Type Severity Reaction Status Date / Time atorvastatin calcium * AdvReac Cramps Verified 07/02/17 04:04 [From Lipitor] codeine AdvReac Nausea Verified 07/02/17 04:04 simvastatin AdvReac Cramps Verified 07/02/17 04:04 Review of Systems - Other Findings Other Findings: A comprehensive review of systems was performed the pertinent positives and negatives are stated above in the HPI and the remainder of the review of systems is negative. Exam - Vital Signs Vital Signs: Vital Signs x48h Temp Pulse Resp BP Pulse Ox 07/02/17 05:28 81 18 100/74 97 07/02/17 04:40 75 20 07/02/17 04:38 72 18 103/73 94 07/02/17 04:29 73 18 87/59 L 100 07/02/17 04:00 36.8 C 83 18 130/91 H 98 - Physical Exam General Appearance: positive: No acute distress, Alert Eyes Bilateral: positive: Normal inspection, PERRL, EOMI, No lid inflammation, Conjunctivae nml, No scleral icterus ENT: positive: ENT inspection nml, Pharynx nml, Dry mucous membranes. negative : Purulent nasal drainage, Pharyngeal erythema, Oral lesions Neck: positive: Nml inspection, Thyroid nml, No JVD, Trachea midline. negative : Thyromegaly, Lymphadenopathy (R), Lymphadenopathy (L), Stiff neck, Carotid bruit, Tracheal deviation Respiratory: positive: No respiratory distress, Rales, Rhonchi Cardiovascular: positive: Regular rate & rhythm, No murmur, No gallop Peripheral Pulses: positive: 2+ Abdomen: positive: Non-tender, No organomegaly, Nml bowel sounds, No distention. negative: Guarding, Rebound, Hepatomegaly Back: positive: Nml inspection. negative: CVA tenderness (R), CVA tenderness (L ) Skin: positive: Color nml, No rash, Warm. negative: Cyanosis, Pallor Extremities: positive: No pedal edema, Other (Patient has tenderness at the deltoid muscle also has muscle spasms in her scapular region. She has full range of motion of her left arm despite having some pain with abduction.) Neurologic/Psychiatric: positive: Oriented x3, CN's nml (2-12), Motor nml, Sensation nml, Mood/affect nml Conclusion/Plan - Problem List (1) Chest pain Conclusion/Plan: The patient presented with substernal chest pain that woke her from sleep. The patient had radiation to her left arm. Patient has had recent bilateral pulmonary emboli and pneumonia. Patient's chest x-ray did not show any remnants of her pneumonia. The patient did not have any tachycardia or hypoxia to suggest worsening of her pulmonary embolism. The patient is currently compliant with Xarelto for treatment of her PE. The patient has had a MA in the past but has not had any stents placed. The patient does have history of tobacco abuse. Patient's chest pain is likely secondary to heart strain from her recent extensive bilateral pulmonary emboli. However given that this is an acute presentation and her chest pain was improved with nitroglycerin this is still concerning for acute coronary syndrome therefore patient is being placed in observation for rule out. Plan: Serial troponins x3 Telemetry monitoring Nitroglycerin when necessary for chest pain Aspirin Lipitor Echo Qualifiers: Chest pain type: unspecified Qualified Code(s): R07.9 - Chest pain, unspecified (2) Pulmonary embolism Conclusion/Plan: Patient had extensive bilateral pulmonary emboli in May 2017. The patient was treated with directed TPA and is now currently on Xarelto. Patient had to be hospitalized at [facility] but has since been discharged. Given that the patient is compliant with Xarelto it is unlikely that she has worsening of these emboli. She is also not presenting with tachycardia or hypoxia. Although the patient's chest pain may be secondary to the pulmonary emboli and possibly due to strain on her heart at this point I do not see reason to do a CT angiogram. If the patient's symptoms persist or she experiences hypotension or worsening hypoxia we would consider doing a CT study at that time. Plan: Patient will be continued on her home dose of Xarelto. Qualifiers: Pulmonary embolism type: other Chronicity: acute (3) Hypokalemia Conclusion/Plan: Patient presents with a potassium of 2.6 this is likely secondary to the patient having persistent nausea and vomiting over the last week. The patient just completed a course of antibiotics yesterday. I suspect the patient's nausea and vomiting was likely related to side effects from her antibiotic. The patient is also on hydrochlorothiazide which could also cause hypokalemia. Patient was given potassium in the emergency department. Plan: Patient will be given IV fluid with potassium and oral potassium replacement. We will hold hydrochlorothiazide Monitor potassium. (4) Hypertension Conclusion/Plan: The patient has history of hypertension and is on hydrochlorothiazide at home. Given her presentation with hypokalemia and borderline blood pressures in the emergency department we will hold her hydrochlorothiazide for now. The patient' s blood pressure will be monitored and we will restart the medication if needed. Qualifiers: Hypertension type: essential hypertension Qualified Code(s): I10 - Essential (primary) hypertension (5) Hypothyroidism Conclusion/Plan: Patient has history of hypothyroidism she is on Synthroid at home we will continue her home dose of Synthroid. Patient appears to be stable - Lab Results Lab results reviewed: Yes Fish Bones: 07/02/17 04:10 07/02/17 04:10 Other Lab Results: Laboratory Results WBC 6.5 x10^3/uL (4.8-10.8) 07/02/17 04:10 RBC 4.18 10^6/uL (4.20-5.40) L 07/02/17 04:10 Hgb 12.8 g/dL (12.0-16.0) 07/02/17 04:10 Hct 37.3 % (37.0-47.0) 07/02/17 04:10 MCV 89.4 fL (81.0-99.0) 07/02/17 04:10 MCH 30.7 pg (27.0-31.0) 07/02/17 04:10 MCHC 34.4 g/dL (32.0-36.0) 07/02/17 04:10 RDW 13.1 % (12.0-15.0) 07/02/17 04:10 Plt Count 316 10^3/uL (130-450) 07/02/17 04:10 MPV 7.1 fL (7.9-10.8) L 07/02/17 04:10 Neut # 3.6 10^3/uL (1.5-6.6) 07/02/17 04:10 Lymph # 2.1 10^3/uL (1.5-3.5) 07/02/17 04:10 [place] # 0.5 10^3/uL (0.0-1.0) 07/02/17 04:10 Eos # 0.1 10^3/uL (0.0-0.7) 07/02/17 04:10 Baso # 0.0 10^3/uL (0.0-0.1) 07/02/17 04:10 Absolute Nucleated RBC 0.01 x10^3/uL 07/02/17 04:10 Nucleated RBC % 0.1 /100WBC 07/02/17 04:10 Sodium 140 mmol/L (135-145) 07/02/17 04:10 Potassium 2.6 mmol/L (3.5-5.0) L 07/02/17 04:10 Chloride 106 mmol/L (101-111) 07/02/17 04:10 Carbon Dioxide 25 mmol/L (21-32) 07/02/17 04:10 Anion Gap 9.0 (6-13) 07/02/17 04:10 BUN 13 mg/dL (6-20) 07/02/17 04:10 Creatinine 1.2 mg/dL (0.4-1.0) H 07/02/17 04:10 Estimated GFR (MDRD) 46 (>89) L 07/02/17 04:10 Glucose 100 mg/dL (70-100) 07/02/17 04:10 Calcium 9.1 mg/dL (8.5-10.3) 07/02/17 04:10 Total Bilirubin 0.8 mg/dL (0.2-1.0) 07/02/17 04:10 AST 22 IU/L (10-42) 07/02/17 04:10 ALT 19 IU/L (10-60) 07/02/17 04:10 Alkaline Phosphatase 81 IU/L (42-121) 07/02/17 04:10 Troponin I < 0.04 ng/mL (<0.49) 07/02/17 04:10 Total Protein 6.9 g/dL (6.7-8.2) 07/02/17 04:10 Albumin 3.8 g/dL (3.2-5.5) 07/02/17 04:10 Globulin 3.1 g/dL (2.1-4.2) 07/02/17 04:10 Albumin/Globulin Ratio 1.2 (1.0-2.2) 07/02/17 04:10 Lipase 38 U/L (22-51) 07/02/17 04:10 - Diagnostic Imaging Results Diagnostic Imaging Results: positive: Final report reviewed Diagnostic Imaging Results Comments: Chest x-ray Impression: 1. No acute abnormality seen in the chest. - EKG Results EKG Interpreted Independently: Yes EKG Findings: Normal sinus rhythm with mild ST depressions in [address] elevations. Issues/Core Measures - Anticipated LOS Anticipated Stay Length: Less than 2 midnights - DVT/VTE - Prophylaxis VTE/DVT Device ordered at admit?: Yes
[2017-07-02] MEDS ORDERED: NS W/20 MEQ KCL 1,000 ML IV SCH (06:00)
[2017-07-02 06:34] LABS: CALCIUM 8.5 mg/dL (8.5-10.3); CREATININE 1.2 mg/dL (0.4-1.0); POTASSIUM 2.6 mmol/L (3.5-5.0)
[2017-07-02] MEDS ORDERED: POTASSIUM CHLORIDE 20 MEQ TABLET PO STA (06:41)
[2017-07-02] MEDS ORDERED: IPRATROPIUM/ALBUTEROL 3 ML NEB INH PRN (06:41)
[2017-07-02] MEDS: SODIUM CHLORIDE FLUSH 0.9% 10 ML SYRINGE IVP SCH ×2 (07:16→14:17)
[2017-07-02] MEDS: HYDROcod/ACETAM 10 MG/325 MG TABLET PO PRN ×2 (07:45→15:40)
[2017-07-02] MEDS ORDERED: POTASSIUM CHLOR 10 MEQ/100 ML 10 MEQ/100 ML BAG IV SCH (09:00)
[2017-07-02] MEDS ORDERED: ASPIRIN EC 81 MG TABLET PO SCH (09:00)
[2017-07-02] MEDS ORDERED: ESTRADIOL 0.5 MG ORAL SCH (09:00)
[2017-07-02] MEDS ORDERED: POLYETHYLENE GLYCOL 3350 17 GM PACKET PO SCH (09:00)
[2017-07-02] MEDS ORDERED: FLUOXETINE HCL 60 MG PO SCH (09:00)
[2017-07-02] MEDS ORDERED: ESTRADIOL 1 MG TABLET PO SCH (09:00)
[2017-07-02] MEDS ORDERED: FLUoxetine 10 MG CAPSULE PO SCH (09:00)
[2017-07-02] MEDS ORDERED: FAMOTIDINE 20 MG TABLET PO SCH (09:00)
[2017-07-02] MEDS: RIVAROXABAN 15 MG TABLET PO SCH ×2 (09:51→16:41)
[2017-07-02] MEDS ORDERED: POTASSIUM CHLORIDE 20 MEQ TABLET PO ONE ×2 (12:00→17:00)
[2017-07-02 16:49] VITALS: BP 119/64
--- NOTE | 2017-07-02 16:51 | Discharge Plan ---
Discharge Plan Disposition: 01 Home, Self Care Condition: Stable Diet: Regular Activity Restrictions: Activity as Tolerated Shower Restrictions: No Weight Bearing: Full Weight Additional Instructions or Follow Up instructions: may follow up PCP in two weeks. Follow-Up Care: [facility] - Cardiac, [facility] - Medical No Smoking: If you smoke, Please STOP! Call for help. Follow-up with: Ino Bustos MD [Primary Care Provider] -
--- NOTE | 2017-07-02 16:54 | DISCHARGE SUMMARY ---
Discharge Summary Admit Date: 07/02/17 Discharge Date: 07/02/17 Discharging Provider: MAXWELL Primary Care Provider: Ino Gant Code Status: Attempt Resuscitation Condition at Discharge: Stable Discharge Disposition: 01 Home, Self Care Discharge Facility Name: home - DIAGNOSES Admission Diagnoses: (1) Chest pain (2) Pulmonary embolism (3) Hypokalemia (4) Hypertension (5) Hypothyroidism Discharge Diagnoses with Status of Each Condition: (1) Chest pain resolved, pt state she does not have more chest pain. No SOB, palpitation. ECHO, serial troponin, EKG are unremarkable. (2) Pulmonary embolism pt does not have pulmonary cardiac distress. continue Xelto (3) Hypokalemia replaced. (4) Hypertension stable, (5) Hypothyroidism stable - HPI History of Present Illness: please refer from Dr. Olsen's HPI on 07/02/17 as the following: Patient is a 61-year-old female with a past medical history significant for recent diagnosis of bilateral pulmonary embolism in May 2017 status post directed TPA currently on Xarelto, recent episode of pneumonia status post antibiotic treatment completed yesterday, history of mesenteric ischemia status post stenting of the superior mesenteric artery, hypertension, degenerative disc disease, history of cervical cancer status post hysterectomy, hypothyroidism, depression and history of [place] who presented to the emergency department with a chief complaint of chest pain. The patient states that she was awoken from her sleep at 3 AM with sudden onset of substernal chest pain. The patient states that the chest pain radiated to her left shoulder and left arm. She does admit that she has been having pain in the left shoulder and left arm for the last 3 days but noticed that it was worse when she had this episode of chest pain this morning. The patient states that the pain was a 7 out of 10 and was associated with nausea but no increased shortness of breath or palpitations. The patient also denies any diaphoresis or lightheadedness. The patient states that the pain was constant and started at rest she did not take anything for the pain prior to coming into the emergency department. She does state that once she received nitroglycerin in the emergency department the pain did improve however the pain was still present when I saw her in the emergency department however it was only 2 out of 10. The patient states the pain was sharp. The patient does admit to feeling nauseated and having vomited several times over the last week. The patient states that the pain currently is very mild in her chest and mostly located in between her shoulder blades. Patient denies any headaches, blurred vision, runny nose, sore throat, she does continue to have cough that has persisted over the last several weeks. The patient denies any difficulty swallowing, abdominal pain, diarrhea, constipation , urinary urgency, urinary frequency, dysuria, joint swelling or joint tenderness, changes in her appetite, recent unintentional weight loss or any focal neurologic deficits. On presentation to the emergency department the patient was afebrile and vital signs were within normal limits. The patient's presenting EKG showed normal sinus rhythm with minimal ST depressions in lead I and aVL but no ST elevations. The patient's initial troponin was negative. The patient did have significant hypokalemia with a potassium of 2.6 but remainder of blood work was within normal limits. The patient was given a dose of nitroglycerin, a nebulizer treatment and potassium in the emergency department. The patient was placed in observation for rule out of acute coronary syndrome. - HOSPITAL COURSE Hospital Course: pt was admitted for chest pain to R/O [facility]. pt does not have more chest pain at hospital. Pt does not appear cardiac and pulmonary distress. ECHO, troponin serial 3 times, EKG all unremarkable. Potassium is replaced, rechecked and replaced. - ALLERGIES Allergies/Adverse Reactions: Allergies Allergy/AdvReac Type Severity Reaction Status Date / Time atorvastatin calcium * AdvReac Cramps Verified 07/02/17 04:04 [From Lipitor] codeine AdvReac Nausea Verified 07/02/17 04:04 simvastatin AdvReac Cramps Verified 07/02/17 04:04 - MEDICATIONS Home Medications: Ambulatory Orders Medication Instructions Recorded Confirmed Diazepam 5 mg PO Q8H PRN 02/14/16 02/22/17 Estradiol [Divigel] 0.5 mg ORAL DAILY 02/14/16 02/22/17 Promethazine [Phenergan] 25 mg PO TID PRN 02/14/16 02/22/17 Fluoxetine HCl [Prozac] 60 mg PO DAILY 09/12/16 02/22/17 Hydrochlorothiazide 12.5 mg PO DAILY 09/12/16 02/22/17 Cyclobenzaprine [Flexeril] 10 mg PO TID PRN #20 tablet 12/01/16 02/22/17 Oxycodone HCl/Acetaminophen 1 each PO Q6H PRN #20 tablet 02/03/17 02/22/17 [Percocet 5-325 mg Tablet] Omeprazole [PriLOSEC] 10 mg PO 02/22/17 Rivaroxaban [Xarelto] 1 tab PO BID 07/02/17 07/02/17 - PHYSICAL EXAM AT DISCHARGE General Appearance: positive: No acute distress, Alert. negative: Lethargic Eyes Bilateral: positive: Normal inspection, PERRL, EOMI, No lid inflammation, Conjunctivae nml ENT: positive: ENT inspection nml, Pharynx nml, No signs of dehydration. negative: Purulent nasal drainage, Pharyngeal erythema Neck: positive: Nml inspection, Thyroid nml, Trachea midline. negative: Thyromegaly, Lymphadenopathy (R), Lymphadenopathy (L), Stiff neck, Carotid bruit , Swelling/bruising, Tracheal deviation Respiratory: positive: Chest non-tender, No respiratory distress, Breath sounds nml. negative: Wheezes, Rales, Rhonchi Cardiovascular: positive: Regular rate & rhythm, No murmur, No gallop. negative : Irregularly irregular, Extrasystoles, Tachycardia, Bradycardia, Systolic murmur, Diastolic murmur Peripheral Pulses: positive: 2+ Abdomen: positive: Non-tender, Nml bowel sounds, No distention. negative: Tenderness, Guarding, Rebound Back: positive: Nml inspection. negative: CVA tenderness (R), CVA tenderness (L ) Skin: positive: Color nml, No rash, Warm, Dry. negative: Cyanosis, Diaphoresis , Pallor, Skin rash Extremities: positive: Non-tender, Full ROM, Nml appearance. negative: Calf tenderness, Joint swelling, Joselo's sign/cords Neurologic/Psychiatric: positive: Oriented x3, Motor nml, Sensation nml, Mood/ affect nml. negative: Sensory loss, Facial droop, Slurred/abnml speech, Depressed mood/affect - LABS Result Diagrams: 07/02/17 04:10 07/02/17 15:57 - FOLLOW UP Follow Up: [pt is advised to follow up PCP in two weeks. Pt is advised to follow up the current medical regime.
[2017-07-02] MEDS ORDERED: ATORVASTATIN 40 MG TABLET PO SCH (21:00)
== END 2017-07-02 18:00 | disposition home or self-care (01) ==
LOC: ED 03:54 → OBS 05:24
PROVIDERS: ADMIT Internal Medicine; ATTEND Nurse Practitioner Gerontology
DX: R07.2 Precordial pain (principal); I26.99 Other pulmonary embolism without acute cor pulmonale; E87.6 Hypokalemia; I11.0 Hypertensive heart disease with heart failure; E03.9 Hypothyroidism, unspecified; J06.9 Acute upper respiratory infection, unspecified; I95.9 Hypotension, unspecified; K21.9 Gastro-esophageal reflux disease without esophagitis; I50.9 Heart failure, unspecified; I25.2 Old myocardial infarction; E78.00 Pure hypercholesterolemia, unspecified; F32.9 Major depressive disorder, single episode, unspecified; Z79.01 Long term (current) use of anticoagulants; Z95.828 Presence of other vascular implants and grafts; Z87.01 Personal history of pneumonia (recurrent); Z85.41 Personal history of malignant neoplasm of cervix uteri; Z87.891 Personal history of nicotine dependence
CPT/HCPCS: 36415; 71010; 80048; 80053; 83690; 84132; 84484; 85025; 93005; 93306; 94640; 96361; 96365; 96366; 96375; 99284; 99285; A9270; G0378; J7620

== ENCOUNTER 2017-10-10 07:57 | Emergency (ER) | payer MEDICAID ==
[2017-10-10 08:32] LABS: BASOPHILS # (AUTO) 0.1 10^3/uL (0.0-0.1); BASOPHILS % (AUTO) 1.2 %; EOSINOPHILS # (AUTO) 0.1 10^3/uL (0.0-0.7); LYMPHOCYTES # (AUTO) 2.5 10^3/uL (1.5-3.5); LYMPHOCYTES % (AUTO) 33.7 %; MEAN CORPUSCULAR HEMOGLOBIN 29.7 pg (27.0-31.0); MEAN CORPUSCULAR HGB CONC 34.7 g/dL (32.0-36.0); MEAN CORPUSCULAR VOLUME 85.5 fL (81.0-99.0); MEAN PLATELET VOLUME 7.2 fL (7.9-10.8); MONOCYTES # (AUTO) 0.4 10^3/uL (0.0-1.0); MONOCYTES % (AUTO) 5.9 %; NEUTROPHILS # (AUTO) 4.2 10^3/uL (1.5-6.6); NEUTROPHILS % (AUTO) 57.2 %; PLT - PLATELET COUNT 306 10^3/uL (130-450); RED BLOOD COUNT 4.71 10^6/uL (4.20-5.40); WHITE BLOOD COUNT 7.4 x10^3/uL (4.8-10.8)
[2017-10-10 08:54] LABS: ALBUMIN 4.4 g/dL (3.2-5.5); ALBUMIN/GLOBULIN RATIO 1.6 (1.0-2.2); CALCIUM 9.4 mg/dL (8.5-10.3); CREATININE 1.1 mg/dL (0.4-1.0); TOTAL PROTEIN 7.2 g/dL (6.7-8.2)
[2017-10-10] MEDS ORDERED: SODIUM CHLORIDE 0.9% 1,000 ML IV ONE ×2 (09:19→13:04)
[2017-10-10] MEDS ORDERED: ONDANSETRON 4 MG/2 ML VIAL IVP STA (09:20)
--- NOTE | 2017-10-10 09:23 | ED Physician Documentation ---
History of Present Illness - Stated complaint Stated Complaint: FATIGUE/TINGLING ON LT SIDE - Chief complaint Chief Complaint: General - History obtained from History obtained from: Patient, EMS - History of Present Illness Timing: How many days ago (3) - Additonal information Additional information: 61-year-old female with a history of vascular disease and pulmonary embolism has developed nausea vomiting and diarrhea 3 days ago and she has not been able to get up off of her floor. She eventually called 911 this morning. She states she has given up, she did not want to come to the hospital because she is usually had to stay for some time when she goes to the hospital. She has had a pulmonary embolism and pneumonia last fall. She feels weak. Review of Systems Constitutional: reports: Chills, Fatigue, Sweats Eyes: denies: Decreased vision Ears: denies: Ear pain Nose: denies: Congestion Throat: denies: Sore throat Cardiac: reports: Chest pain / pressure Respiratory: reports: Dyspnea. denies: Cough GI: reports: Nausea, Vomiting, Diarrhea. denies: Abdominal Pain : reports: Frequency. denies: Dysuria Skin: denies: Rash Musculoskeletal: denies: Neck pain, Back pain, Extremity pain Neurologic: reports: Generalized weakness, Numbness (to the left arm). 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 : None HEENT: None Psych: None Musculoskeletal: None Derm: None - Past Surgical History Past Surgical History: Yes General: Bowel surgery /SALES APPLICATIONS ENGINEER: Hysterectomy Cardiovascular: Other - Present Medications Home Medications: Ambulatory Orders Medication Instructions Recorded Confirmed Estradiol [Divigel] 0.5 mg ORAL DAILY 02/14/16 10/10/17 Promethazine [Phenergan] 25 mg PO TID PRN 02/14/16 10/10/17 diazePAM [Diazepam] 5 mg PO Q8H PRN 02/14/16 10/10/17 Fluoxetine HCl [Prozac] 60 mg PO DAILY 09/12/16 10/10/17 hydroCHLOROthiazide 12.5 mg PO DAILY 09/12/16 10/10/17 [Hydrochlorothiazide] Cyclobenzaprine [Flexeril] 10 mg PO TID PRN #20 tablet 12/01/16 10/10/17 Oxycodone HCl/Acetaminophen 1 each PO Q6H PRN #20 tablet 02/03/17 10/10/17 [Percocet 5-325 mg Tablet] Omeprazole [PriLOSEC] 10 mg PO DAILY 02/22/17 10/10/17 Rivaroxaban [Xarelto] 1 tab PO BID 07/02/17 10/10/17 - Allergies Allergies/Adverse Reactions: Allergies Allergy/AdvReac Type Severity Reaction Status Date / Time atorvastatin calcium * AdvReac Cramps Verified 10/10/17 08:10 [From Lipitor] codeine AdvReac Nausea Verified 10/10/17 08:10 simvastatin AdvReac Cramps Verified 10/10/17 08:10 - Social History Does the pt smoke?: Yes Smoking Status: Current every day smoker Does the pt drink ETOH?: No Does the pt have substance abuse?: Yes - Immunizations Immunizations are current?: No Immunizations: TDAP >10years/unknown - POLST Patient has POLST: No POLST Status: Full Code PD ED PE NORMAL - Vitals Vital signs reviewed: Yes (diastolic hypertension ) - General General: Alert and oriented X 3, Well developed/nourished, Other (61-year-old female with parched mucous membranes is answering questions appropriately and appears ill) - HEENT HEENT: Atraumatic, PERRL, EOMI, Other (Parched mucous membranes) - Neck Neck: Supple, no meningeal sign, No bony TTP - Cardiac Cardiac: RRR, No murmur - Respiratory Respiratory: No respiratory distress, Other - Abdomen Abdomen: Soft, Other (Epigastric tenderness to deep palpation) - Back Back: No CVA TTP, No spinal TTP - Derm Derm: Normal color, Warm and dry, No rash - Extremities Extremities: No deformity, No edema - Neuro Neuro: No motor deficit, No sensory deficit Eye Opening: Spontaneous Motor: Obeys Commands Verbal: Oriented GCS Score: 15 - Psych Psych: Normal mood, Normal affect Results - Vitals Vitals: Vital Signs - 24 hr 10/10/17 10/10/17 10/10/17 08:02 09:00 11:54 Temperature 36.0 C L Heart Rate 70 62 81 Respiratory 18 17 16 Rate Blood Pressure 119/91 H 143/90 H 140/83 H O2 Saturation 100 99 98 Oxygen O2 Source Room air - EKG (time done) 0811 Rate: Rate (enter#) (66) Ischemia: Non specific changes Compare to prior EKG: Changed from prior EKG (SPT 07-02-17 ST depression laterally has resolved. ) Computer interpretation: Agree with computer - Labs Labs: Laboratory Tests 10/10/17 10/10/17 10/10/17 08:25 08:25 08:25 WBC 7.4 RBC 4.71 Hgb 14.0 Hct 40.3 MCV 85.5 MCH 29.7 MCHC 34.7 RDW 13.0 Plt Count 306 MPV 7.2 L Neut # 4.2 Lymph # 2.5 [place] # 0.4 Eos # 0.1 Baso # 0.1 Absolute Nucleated RBC 0.02 Nucleated RBC % 0.2 Sodium 139 Potassium 3.2 L Chloride 99 L Carbon Dioxide 25 Anion Gap 15.0 H BUN 10 Creatinine 1.1 H Estimated GFR (MDRD) 50 L Glucose 90 Lactic Acid Calcium 9.4 Total Bilirubin 1.0 AST 26 ALT 18 Alkaline Phosphatase 101 Troponin I < 0.04 Total Protein 7.2 Albumin 4.4 Globulin 2.8 Albumin/Globulin Ratio 1.6 Lipase 25 Urine Color Urine Clarity Urine pH Ur Specific [place] Urine Protein Urine Glucose (UA) Urine Ketones Urine Occult Blood Urine Nitrite Urine Bilirubin Urine Urobilinogen Ur Leukocyte Esterase Ur Microscopic Review Urine Culture Comments 10/10/17 10/10/17 10/10/17 09:30 10:12 10:12 WBC 6.3 RBC 4.43 Hgb 13.2 Hct 38.3 MCV 86.4 MCH 29.7 MCHC 34.4 RDW 13.2 Plt Count 273 MPV 6.9 L Neut # 3.6 Lymph # 2.1 [place] # 0.4 Eos # 0.1 Baso # 0.1 Absolute Nucleated RBC 0.00 Nucleated RBC % 0.0 Sodium 140 Potassium 2.7 L Chloride 102 Carbon Dioxide 25 Anion Gap 13.0 BUN 10 Creatinine 1.0 Estimated GFR (MDRD) 56 L Glucose 90 Lactic Acid Calcium 8.8 Total Bilirubin 1.0 AST 18 ALT 17 Alkaline Phosphatase 94 Troponin I Total Protein 6.5 L Albumin 3.8 Globulin 2.7 Albumin/Globulin Ratio 1.4 Lipase 24 Urine Color LT. YELLOW Urine Clarity CLEAR Urine pH 6.0 Ur Specific [place] <=1.005 Urine Protein NEGATIVE Urine Glucose (UA) NEGATIVE Urine Ketones NEGATIVE Urine Occult Blood NEGATIVE Urine Nitrite NEGATIVE Urine Bilirubin NEGATIVE Urine Urobilinogen 0.2 (NORMAL) Ur Leukocyte Esterase NEGATIVE Ur Microscopic Review NOT INDICATED Urine Culture Comments NOT INDICATED 10/10/17 10/10/17 10:12 10:12 WBC RBC Hgb Hct MCV MCH MCHC RDW Plt Count MPV Neut # Lymph # [place] # Eos # Baso # Absolute Nucleated RBC Nucleated RBC % Sodium Potassium Chloride Carbon Dioxide Anion Gap BUN Creatinine Estimated GFR (MDRD) Glucose Lactic Acid 1.5 Calcium Total Bilirubin AST ALT Alkaline Phosphatase Troponin I < 0.04 Total Protein Albumin Globulin Albumin/Globulin Ratio Lipase Urine Color Urine Clarity Urine pH Ur Specific [place] Urine Protein Urine Glucose (UA) Urine Ketones Urine Occult Blood Urine Nitrite Urine Bilirubin Urine Urobilinogen Ur Leukocyte Esterase Ur Microscopic Review Urine Culture Comments - Rads (name of study) 2 view chest Radiology: Prelim report reviewed (Impression: Unremarkable chest for age and body size, stable. No demonstrate a cause for the patient's symptoms.), EMP read indepedently, See rad report Procedures - IVC sono (time) 0920 Bedside IVC sono: IVC measures (cm) (0.6), IVC collapsed c insp (cm) (complete) , Profound dehydration 1304 Bedside IVC sono: IVC measures (cm) (1.2), IVC collapsed c insp (cm) (complete) , Dehydration (est 1 liter down.) PD MEDICAL DECISION MAKING - ED course Complexity details: reviewed old records, reviewed results, re-evaluated patient , considered differential, d/w patient ED course: 61-year-old female with history of vascular disease pulmonary embolism has developed diarrhea and vomiting became profoundly dehydrated and here on arrival to the emergency department her inferior vena cava Fabian liter of saline and her inferior vena cava pumps up but continues to be small and she is administered a second liter of saline. She feels much improved. Her troponin is negative and the remainder of her workup shows only an low potassium. She is replaced orally. Departure - Departure Disposition: 01 Home, Self Care Clinical Impression: Dehydration, Hypokalemia Condition: Stable Instructions: ED Dehydration, ED Potassium Deficiency Follow-Up: Ino Bustos MD [Primary Care Provider] -
[2017-10-10 09:48] LABS: BILIRUBIN,URINE NEGATIVE (NEGATIVE); GLUCOSE, URINE (UA) NEGATIVE (NEGATIVE); KETONES,URINE (UA) NEGATIVE (NEGATIVE); LEUKOCYTE ESTERASE, URINE NEGATIVE (NEGATIVE); NITRITE,URINE NEGATIVE (NEGATIVE); OCCULT BLOOD,URINE NEGATIVE (NEGATIVE); PROTEIN,URINE NEGATIVE (NEGATIVE); UROBILINOGEN,URINE 0.2 (NORMAL) E.U./dL (NORMAL)
[2017-10-10 09:50] LABS: CLARITY,URINE CLEAR (CLEAR)
--- NOTE | 2017-10-10 10:00 | XRAY Preliminary Report ---
Exam: XR CHEST 2 VIEW X-RAY IMPRESSION: Unremarkable chest for age and body size, stable. No demonstrated cause for the patient's symptoms. [facility] SITE ID: [id number]
--- NOTE | 2017-10-10 10:05 | XRAY Report ---
EXAM: CHEST RADIOGRAPHY, 2 VIEWS EXAM DATE: 10/10/2017 09:43 AM. CLINICAL HISTORY: Syncope with three-day history of chest pain in a 61-year-old female. COMPARISON: AP portable study 07/02/2017 and previous. TECHNIQUE: Upright PA and lateral views. FINDINGS: Lungs/Pleura: No focal opacities evident. No pleural effusion. No pneumothorax. Normal volumes. Mediastinum: Heart and mediastinal contours are unremarkable. No pulmonary vascular congestion or rodrick nopathy. Other: Trachea is midline. Osseous structures are unremarkable. IMPRESSION: Unremarkable chest for age and body size, stable. No demonstrated cause for the patient's symptoms. [facility] Referring Provider Line: [phone] SITE ID: [id number]
[2017-10-10 10:15] LABS: BASOPHILS # (AUTO) 0.1 10^3/uL (0.0-0.1); EOSINOPHILS # (AUTO) 0.1 10^3/uL (0.0-0.7); EOSINOPHILS % (AUTO) 2.3 %; HGB - HEMOGLOBIN 13.2 g/dL (12.0-16.0); LYMPHOCYTES # (AUTO) 2.1 10^3/uL (1.5-3.5); LYMPHOCYTES % (AUTO) 33.7 %; MEAN CORPUSCULAR HEMOGLOBIN 29.7 pg (27.0-31.0); MEAN CORPUSCULAR HGB CONC 34.4 g/dL (32.0-36.0); MEAN CORPUSCULAR VOLUME 86.4 fL (81.0-99.0); MEAN PLATELET VOLUME 6.9 fL (7.9-10.8); MONOCYTES # (AUTO) 0.4 10^3/uL (0.0-1.0); MONOCYTES % (AUTO) 6.2 %; NEUTROPHILS # (AUTO) 3.6 10^3/uL (1.5-6.6); NEUTROPHILS % (AUTO) 56.8 %; PLT - PLATELET COUNT 273 10^3/uL (130-450); RED BLOOD COUNT 4.43 10^6/uL (4.20-5.40); RED CELL DISTRIBUTION WIDTH 13.2 % (12.0-15.0); WHITE BLOOD COUNT 6.3 x10^3/uL (4.8-10.8)
[2017-10-10 10:30] LABS: ALBUMIN 3.8 g/dL (3.2-5.5); ALBUMIN/GLOBULIN RATIO 1.4 (1.0-2.2); CALCIUM 8.8 mg/dL (8.5-10.3); TOTAL PROTEIN 6.5 g/dL (6.7-8.2)
[2017-10-10] MEDS ORDERED: POTASSIUM CHLORIDE 20 MEQ TABLET PO STA ×2 (11:35→13:04)
[2017-10-10 14:18] VITALS: BP 110/54
== END 2017-10-10 14:36 | disposition home or self-care (01) ==
LOC: ED 07:57
DX: E86.0 Dehydration (principal); E87.6 Hypokalemia; I11.0 Hypertensive heart disease with heart failure; I50.9 Heart failure, unspecified; I25.2 Old myocardial infarction; E78.00 Pure hypercholesterolemia, unspecified; K21.9 Gastro-esophageal reflux disease without esophagitis; Z86.711 Personal history of pulmonary embolism; Z79.01 Long term (current) use of anticoagulants; F17.200 Nicotine dependence, unspecified, uncomplicated
CPT/HCPCS: 36415; 71046; 80053; 81003; 83605; 83690; 84484; 85025; 93005; 96361; 96374; 99284; A9270; 81001; 87086

== ENCOUNTER 2017-10-31 05:54 | Observation (INO) | payer MEDICAID ==
[2017-10-31] MEDS ORDERED: SODIUM CHLORIDE 0.9% 1,000 ML IV ONE (06:05)
[2017-10-31] MEDS ORDERED: MORPHINE 10 MG/ML VIAL IVP STA (06:05)
[2017-10-31] MEDS ORDERED: HYDROmorphone 1 MG/ML SYRINGE IVP STA ×2 (06:07→06:30)
[2017-10-31] MEDS ORDERED: ONDANSETRON 4 MG/2 ML VIAL IVP STA (06:15)
[2017-10-31 06:19] LABS: BASOPHILS # (AUTO) 0.1 10^3/uL (0.0-0.1); BASOPHILS % (AUTO) 0.7 %; EOSINOPHILS # (AUTO) 0.2 10^3/uL (0.0-0.7); EOSINOPHILS % (AUTO) 2.6 %; LYMPHOCYTES # (AUTO) 2.4 10^3/uL (1.5-3.5); LYMPHOCYTES % (AUTO) 33.1 %; MEAN CORPUSCULAR HEMOGLOBIN 28.9 pg (27.0-31.0); MEAN CORPUSCULAR HGB CONC 33.4 g/dL (32.0-36.0); MEAN CORPUSCULAR VOLUME 86.4 fL (81.0-99.0); MEAN PLATELET VOLUME 7.1 fL (7.9-10.8); MONOCYTES # (AUTO) 0.4 10^3/uL (0.0-1.0); MONOCYTES % (AUTO) 5.5 %; NEUTROPHILS # (AUTO) 4.3 10^3/uL (1.5-6.6); NEUTROPHILS % (AUTO) 58.1 %; PLT - PLATELET COUNT 351 10^3/uL (130-450); RED BLOOD COUNT 4.86 10^6/uL (4.20-5.40); RED CELL DISTRIBUTION WIDTH 13.8 % (12.0-15.0); WHITE BLOOD COUNT 7.4 x10^3/uL (4.8-10.8)
[2017-10-31 06:25] LABS: PT - PROTHROMBIN TIME 11.1 secs (9.9-12.6)
[2017-10-31 06:29] LABS: ALBUMIN 4.3 g/dL (3.2-5.5); ALBUMIN/GLOBULIN RATIO 1.2 (1.0-2.2); BILIRUBIN,TOTAL 0.9 mg/dL (0.2-1.0); CALCIUM 9.5 mg/dL (8.5-10.3); CREATININE 1.1 mg/dL (0.4-1.0); MAGNESIUM 1.7 mg/dL (1.7-2.8); PHOSPHORUS 2.6 mg/dL (2.5-4.6); TOTAL PROTEIN 7.8 g/dL (6.7-8.2)
--- NOTE | 2017-10-31 06:30 | ED Physician Documentation ---
PD HPI BACK PAIN - Stated complaint Stated Complaint: UPPER BACK,NECK,LT ARM PAIN - Chief complaint Chief Complaint: Cardiac - History obtained from History obtained from: Patient, Family - History of Present Illness Timing - onset: Today Timing - details: Gradual onset, Still present Location: Upper, Left Quality: Pain, Sharp, Similar to prior episodes Similar symptoms before: Work up / diagnostics, Treatment Recently seen: Not recently seen - Additional information Additional information: Patient is a 61 year old female with a history of multiple PE, SMA occusion from blood blots who is presenting to the emergency department for severe back pain with radiation down her left arm. Patient has had similar symptoms in the past and at that time patient was found to have multiple PE with right heart strain. Review of Systems Constitutional: denies: Fever, Chills Eyes: reports: Reviewed and negative Ears: reports: Reviewed and negative Nose: reports: Reviewed and negative Cardiac: reports: Chest pain / pressure. denies: Palpitations Respiratory: denies: Cough, Wheezing GI: reports: Nausea. 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 : None HEENT: None Psych: None Musculoskeletal: None Derm: None - Past Surgical History Past Surgical History: Yes General: Bowel surgery /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: Hysterectomy Cardiovascular: Other - Present Medications Home Medications: Ambulatory Orders Medication Instructions Recorded Confirmed Estradiol [Divigel] 0.5 mg ORAL DAILY 02/14/16 10/31/17 Promethazine [Phenergan] 25 mg PO TID PRN 02/14/16 10/31/17 diazePAM [Diazepam] 5 mg PO Q8H PRN 02/14/16 10/31/17 Fluoxetine HCl [Prozac] 60 mg PO DAILY 09/12/16 10/31/17 hydroCHLOROthiazide 12.5 mg PO DAILY 09/12/16 10/31/17 [Hydrochlorothiazide] Cyclobenzaprine [Flexeril] 10 mg PO TID PRN #20 tablet 12/01/16 10/31/17 Oxycodone HCl/Acetaminophen 1 each PO Q6H PRN #20 tablet 02/03/17 10/31/17 [Percocet 5-325 mg Tablet] Rivaroxaban [Xarelto] 1 tab PO BID 07/02/17 10/31/17 - Allergies Allergies/Adverse Reactions: Allergies Allergy/AdvReac Type Severity Reaction Status Date / Time atorvastatin calcium * AdvReac Cramps Verified 10/31/17 06:03 [From Lipitor] codeine AdvReac Nausea Verified 10/31/17 06:03 simvastatin AdvReac Cramps Verified 10/31/17 06:03 - Social History Does the pt smoke?: Yes Smoking Status: Current every day smoker Does the pt drink ETOH?: No Does the pt have substance abuse?: Yes Substance Use and Type: Marijuana - Immunizations Immunizations are current?: Yes Immunizations: TDAP >10years/unknown - POLST Patient has POLST: No POLST Status: Full Code PD ED PE NORMAL - HEENT HEENT: Atraumatic - Neck Neck: Supple, no meningeal sign - Cardiac Cardiac: RRR, No murmur - Respiratory Respiratory: No respiratory distress - Abdomen Abdomen: Soft - Derm Derm: Normal color, Warm and dry - Neuro Neuro: Alert and oriented X 3 Eye Opening: Spontaneous Motor: Obeys Commands Verbal: Oriented GCS Score: 15 PD ED PE EXPANDED - General General: Alert, Anxious, In Pain - Back Back: Soft tissue tenderness (tenderness to palpation of left back ) Results - Vitals Vitals: Vital Signs - 24 hr 10/31/17 10/31/17 06:00 06:05 Temperature 36.4 C L Heart Rate 85 Respiratory 24 Rate Blood Pressure 180/108 H Blood Pressure 180/108 H [Right] O2 Saturation 99 Oxygen O2 Source Room air - EKG (time done) 0600 Rate: Rate (enter#) (86) Rhythm: NSR Other comments: Other comments (lead reversal, no acute st changes) 0650 Rate: Rate (enter#) (72) Rhythm: NSR [place]: Normal Compare to prior EKG: Unchanged from prior EKG - Labs Labs: Laboratory Tests 10/31/17 10/31/17 10/31/17 06:00 06:00 06:00 WBC 7.4 RBC 4.86 Hgb 14.0 Hct 42.0 MCV 86.4 MCH 28.9 MCHC 33.4 RDW 13.8 Plt Count 351 MPV 7.1 L Neut # 4.3 Lymph # 2.4 [place] # 0.4 Eos # 0.2 Baso # 0.1 Absolute Nucleated RBC 0.00 Nucleated RBC % 0.1 PT 11.1 INR 1.0 APTT 26.6 Sodium 139 Potassium 3.1 L Chloride 98 L Carbon Dioxide 26 Anion Gap 15.0 H BUN 17 Creatinine 1.1 H Estimated GFR (MDRD) 50 L Glucose 111 H Calcium 9.5 Phosphorus 2.6 Magnesium 1.7 Total Bilirubin 0.9 AST 30 ALT 21 Alkaline Phosphatase 110 Troponin I B-Natriuretic Peptide Total Protein 7.8 Albumin 4.3 Globulin 3.5 Albumin/Globulin Ratio 1.2 Lipase 26 TSH 10/31/17 10/31/17 10/31/17 06:00 06:00 06:00 WBC RBC Hgb Hct MCV MCH MCHC RDW Plt Count MPV Neut # Lymph # [place] # Eos # Baso # Absolute Nucleated RBC Nucleated RBC % PT INR APTT Sodium Potassium Chloride Carbon Dioxide Anion Gap BUN Creatinine Estimated GFR (MDRD) Glucose Calcium Phosphorus Magnesium Total Bilirubin AST ALT Alkaline Phosphatase Troponin I < 0.04 B-Natriuretic Peptide 23 Total Protein Albumin Globulin Albumin/Globulin Ratio Lipase TSH 5.59 PD MEDICAL DECISION MAKING - ED course Complexity details: reviewed old records, reviewed results, re-evaluated patient , considered differential, d/w patient ED course: patient was seen and examined at bedside. ekg was performed and showed no acute changes. iv access was gained and labs were drawn. imaging was ordered. Patient was treated with dilaudid for pain. when patient returned from imaging she was treated with an additional 1mg of dilaudid repeat ekg was unchanged. patient was signed over to dr. [email or web address] pending disposition.
[2017-10-31] MEDS ORDERED: IOPAMIDOL-300 100 ML VIAL ONE (06:43)
[2017-10-31] MEDS ORDERED: IOPAMIDOL-300 100 ML VIAL IVP ONE (06:48)
--- NOTE | 2017-10-31 07:17 | CT Report ---
EXAM: CT ANGIOGRAM CHEST EXAM DATE: 10/31/2017 06:51 AM. CLINICAL HISTORY: Chest pain, hx of PE. COMPARISON: 06/09/2017. TECHNIQUE: Routine helical imaging was performed through the chest in the pulmonary arterial phase. I V Contrast: 80 cc Isovue 300. Reconstructions: Coronal 3-D MIP reconstructions.Sagittal and coronal. In accordance with CT protocol optimization, one or more of the following dose reduction techniques w ere utilized for this exam: automated exposure control, adjustment of mA and/or KV based on patient s ize, or use of iterative reconstructive technique. FINDINGS: Pulmonary Arteries: Diagnostic quality: Adequate through the segmental arteries. No evidence for acute or chronic pulmona ry emboli. The previously seen bilateral pulmonary emboli are no longer present. RV/LV is within normal limits. There is no interventricular septal bowing. There is no reflux of cont rast material in the IVC. Lungs/Pleura: No consolidation, nodules, or edema. No effusions or pneumothorax. Mediastinum: Normal. No cardiac enlargement or adenopathy. Thoracic Aorta: Unremarkable. Upper Abdomen: The proximal end of an SMA stent is partially visualized at the inferior margin of the images. The visualized upper abdomen is otherwise unremarkable. Other: No acute osseous abnormality or suspicious osseous lesion. IMPRESSION: Normal pulmonary CT angiogram. No pulmonary emboli. The previously seen pulmonary emboli and pulmonary opacities are no longer present. [facility] Referring Provider Line: [phone] SITE ID: [id number]
[2017-10-31] MEDS ORDERED: diphenhydrAMINE INJ 50 MG/ML VIAL IVP STA (07:19)
[2017-10-31] MEDS ORDERED: NITROGLYCERIN 2% PASTE TOP STA (07:50)
[2017-10-31] MEDS ORDERED: MORPHINE 2 MG/ML CARPUJECT IVP STA (07:50)
--- NOTE | 2017-10-31 08:07 | ED Physician Documentation ---
History of Present Illness - Stated complaint Stated Complaint: UPPER BACK,NECK,LT ARM PAIN - Chief complaint Chief Complaint: Cardiac PD PAST MEDICAL HISTORY - Past Medical History Past Medical History: Yes Cardiovascular: Congestive heart failure, Hypertension, High cholesterol, [place] Respiratory: None Neuro: None Endocrine/Autoimmune: None GI: GERD, Other EXPEDITER SERVICE ORDER: None : None HEENT: None Psych: None Musculoskeletal: None Derm: None - Past Surgical History Past Surgical History: Yes General: Bowel surgery /EXPEDITER SERVICE ORDER: Hysterectomy Cardiovascular: Other - Present Medications Home Medications: Ambulatory Orders Medication Instructions Recorded Confirmed Promethazine [Phenergan] 25 mg PO Q8H PRN 02/14/16 10/31/17 diazePAM [Diazepam] 5 mg PO Q8H PRN 02/14/16 10/31/17 Fluoxetine HCl [Prozac] 20 mg PO DAILY 09/12/16 10/31/17 Rivaroxaban [Xarelto] 15 mg PO BID 07/02/17 10/31/17 Albuterol Sulf [Ventolin Hfa 1 - 2 puffs INH Q4H PRN 10/31/17 10/31/17 Inhaler] Atorvastatin [Lipitor] 10 mg PO DAILY 10/31/17 10/31/17 Cyclobenzaprine [Flexeril] 10 mg PO Q8H PRN 10/31/17 10/31/17 Estradiol [Estradiol] 0.5 mg PO DAILY 10/31/17 10/31/17 Omeprazole 20 mg PO QDAC 10/31/17 10/31/17 Oxycodone HCl/Acetaminophen 1 tab PO Q4H PRN 10/31/17 10/31/17 [Oxycodone-Acetaminophen 5-325] hydroCHLOROthiazide 25 mg PO DAILY 10/31/17 10/31/17 [Hydrochlorothiazide] - Allergies Allergies/Adverse Reactions: Allergies Allergy/AdvReac Type Severity Reaction Status Date / Time codeine AdvReac Nausea Verified 10/31/17 06:03 simvastatin AdvReac Cramps Verified 10/31/17 06:03 - Social History Does the pt smoke?: Yes Smoking Status: Current every day smoker Does the pt drink ETOH?: No Does the pt have substance abuse?: Yes Substance Use and Type: Marijuana - Immunizations Immunizations are current?: Yes Immunizations: TDAP >10years/unknown - POLST Patient has POLST: No POLST Status: Full Code Results - Vitals Vitals: Vital Signs - 24 hr 10/31/17 10/31/17 10/31/17 06:00 06:05 07:22 Temperature 36.4 C L Heart Rate 85 78 Respiratory 24 18 Rate Blood Pressure 180/108 H 139/98 H Blood Pressure 180/108 H [Right] O2 Saturation 99 100 Oxygen O2 Source Room air - Labs Labs: Laboratory Tests 10/31/17 10/31/17 10/31/17 06:00 06:00 06:00 WBC 7.4 RBC 4.86 Hgb 14.0 Hct 42.0 MCV 86.4 MCH 28.9 MCHC 33.4 RDW 13.8 Plt Count 351 MPV 7.1 L Neut # 4.3 Lymph # 2.4 Wake # 0.4 Eos # 0.2 Baso # 0.1 Absolute Nucleated RBC 0.00 Nucleated RBC % 0.1 PT 11.1 INR 1.0 APTT 26.6 Sodium 139 Potassium 3.1 L Chloride 98 L Carbon Dioxide 26 Anion Gap 15.0 H BUN 17 Creatinine 1.1 H Estimated GFR (MDRD) 50 L Glucose 111 H Lactic Acid Calcium 9.5 Phosphorus 2.6 Magnesium 1.7 Total Bilirubin 0.9 AST 30 ALT 21 Alkaline Phosphatase 110 Troponin I B-Natriuretic Peptide Total Protein 7.8 Albumin 4.3 Globulin 3.5 Albumin/Globulin Ratio 1.2 Lipase 26 TSH 10/31/17 10/31/17 10/31/17 06:00 06:00 06:00 WBC RBC Hgb Hct MCV MCH MCHC RDW Plt Count MPV Neut # Lymph # Wake # Eos # Baso # Absolute Nucleated RBC Nucleated RBC % PT INR APTT Sodium Potassium Chloride Carbon Dioxide Anion Gap BUN Creatinine Estimated GFR (MDRD) Glucose Lactic Acid Calcium Phosphorus Magnesium Total Bilirubin AST ALT Alkaline Phosphatase Troponin I < 0.04 B-Natriuretic Peptide 23 Total Protein Albumin Globulin Albumin/Globulin Ratio Lipase TSH 5.59 10/31/17 07:13 WBC RBC Hgb Hct MCV MCH MCHC RDW Plt Count MPV Neut # Lymph # Wake # Eos # Baso # Absolute Nucleated RBC Nucleated RBC % PT INR APTT Sodium Potassium Chloride Carbon Dioxide Anion Gap BUN Creatinine Estimated GFR (MDRD) Glucose Lactic Acid 2.2 Calcium Phosphorus Magnesium Total Bilirubin AST ALT Alkaline Phosphatase Troponin I B-Natriuretic Peptide Total Protein Albumin Globulin Albumin/Globulin Ratio Lipase TSH PD MEDICAL DECISION MAKING - ED course ED course: assumed care 7 AM 61 female with multiple medical problems including HTN CAD s/p AR vascular dz with multiple prior PEs and SMA occlusion which was stented at Prov now on xarelto, states she does not 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 have a 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 wpf developer has been having int L arm and upper back pain for a few weeks has seen PMD about this and was told it was prob her heart and that she needed and echo or stress but she has not done this yet - talking to pt is seems she has been afraid to go get the recommended testing because every time she does a new disaster is diagnosed this AM at 5 AM she was awakned by much more severe mid upper pack to L shoulder axillae and arm, pain is similar to her prior cardiac event per pt, + SOA as well no fever cough has NVD and abd pain but talking with ehr it seems this is baseline for her dumping syndrome no new leg pain or swelling was seen by night supervisor - given dilaudid for pain with with little relief and it caused itching s hivers or swelling for which i gave her benadryl EKG from 650AM is NSR rate 72 inderior Q waves some slight coving ST segments anterior without elevation and flattened T waves laterally similar to Sep 2017 CTPA showed no PE, nl thoracic aorta 1st trop neg K low and repleted will give nitro and morphine with improvement - no asa as on xarelto feel pt is high risk and needs admit for further cardiac work up - at this point neg trop and no STEMI on EKG so no indication for emergent transfer paged hospitalist [phone], called back immed, will place in obs for further work up and eval Departure - Departure Disposition: ED Place in Observation Clinical Impression: Chest pain Qualifiers: Chest pain type: unspecified Qualified Code(s): R07.9 - Chest pain, unspecified Condition: Fair Discharge Date/Time: 10/31/17 09:29
[2017-10-31] MEDS ORDERED: POTASSIUM CHLORIDE 20 MEQ TABLET PO STA (08:10)
[2017-10-31] MEDS ORDERED: POTASSIUM CHLOR 10 MEQ/100 ML 10 MEQ/100 ML BAG IV ONE (08:10)
[2017-10-31] MEDS ORDERED: NITROGLYCERIN SL 0.4 MG TABLET SL PRN (08:31)
[2017-10-31] MEDS ORDERED: TEMAZEPAM 15 MG CAPSULE PO PRN (08:31)
[2017-10-31] MEDS ORDERED: SODIUM CHLORIDE FLUSH 0.9% 10 ML SYRINGE IVP PRN (08:31)
[2017-10-31] MEDS ORDERED: oxyCODONE 5 MG TABLET PO PRN (08:31)
[2017-10-31] MEDS ORDERED: ASPIRIN CHEW 81 MG TABLET PO ONE (08:31)
[2017-10-31] MEDS ORDERED: diazePAM 5 MG TABLET PO PRN (08:38)
[2017-10-31] MEDS ORDERED: hydroCHLOROthiazide 12.5 MG CAPSULE PO SCH (09:00)
[2017-10-31] MEDS ORDERED: FLUOXETINE HCL 60 MG PO SCH (09:00)
[2017-10-31 09:02] LABS: CALCIUM 8.6 mg/dL (8.5-10.3); CREATININE 1.1 mg/dL (0.4-1.0)
--- NOTE | 2017-10-31 09:19 | HISTORY & PHYSICAL EXAMINATION ---
Chief Complaint - Chief Complaint Chief Complaint: chest pain History of Present Illness - Admitted From Admitted From:: Home - History Obtained From History obtained from: patient and partner - History of Present Illness HPI Comment/Other: Mrs. Anderson Davis is a very pleasant 61 year old woman with a past medical history significant for coronary artery disease, congestive heart failure, myocardial infarction, hypertension, hypercholesterolemia, chronic back pain, and multiple pulmonary emboli. She began to experience chest pain and recognizes a similar pain to previous episode several months ago which she was found to have multiple pulmonary emboli. CT angiogram of the chest failed to show any new emboli however given her past medical history would be prudent to bring her in to rule out a cardiac event. History - Past Medical History Cardiovascular: reports: Congestive heart failure, Hypertension, High cholesterol, Pulmonary embolism, [place] Respiratory: reports: None Neuro: reports: None Endocrine/Autoimmune: reports: None GI: reports: GERD, Other WORKFORCE SERVICES REPRESENTATIVE: reports: None : reports: None HEENT: reports: None Psych: reports: None Musculoskeletal: reports: None Derm: reports: None MRSA Hx?: No - Past Surgical History General: reports: Bowel surgery /WORKFORCE SERVICES REPRESENTATIVE: reports: Hysterectomy Cardiovascular: reports: Other HEENT: reports: Other (Unknown type of throat surgery) - Family & Social History Family History: Mother: , Hyperlipidemia, Hypertension, [place], Father: , Cancer, Hyperlipidemia, Hypertension, [place], Sister: Alive and Well, Hyperlipidemia, Hypertension, [place] Living arrangement: At home Living Situation: With spouse/s.o. Social History Notes: The patient lives with her and daughter in [place]. She is previously lived in [place] but moved to [facility] about 2 years ago. The patient is retired and was originally from [place] she has 3 children. The patient rarely drinks alcohol. She smoked a pack a day but has recently quit. She denies any illicit drug use. - Substance History Use: Uses substance without health or social issues: NONE Tobacco Details: Cigarettes - POLST Patient has POLST: Yes POLST Status: DNR Meds/Allgy - Home Medications Home Medications: Ambulatory Orders Medication Instructions Recorded Confirmed Promethazine [Phenergan] 25 mg PO Q8H PRN 02/14/16 10/31/17 diazePAM [Diazepam] 5 mg PO Q8H PRN 02/14/16 10/31/17 Fluoxetine HCl [Prozac] 20 mg PO DAILY 09/12/16 10/31/17 Rivaroxaban [Xarelto] 15 mg PO BID 07/02/17 10/31/17 Albuterol Sulf [Ventolin Hfa 1 - 2 puffs INH Q4H PRN 10/31/17 Inhaler] Atorvastatin [Lipitor] 10 mg PO DAILY 10/31/17 Cyclobenzaprine [Flexeril] 10 mg PO Q8H PRN 10/31/17 10/31/17 Estradiol [Estradiol] 0.5 mg PO DAILY 10/31/17 10/31/17 Omeprazole 20 mg PO QDAC 10/31/17 Oxycodone HCl/Acetaminophen 1 tab PO Q4H PRN 10/31/17 10/31/17 [Oxycodone-Acetaminophen 5-325] hydroCHLOROthiazide 25 mg PO DAILY 10/31/17 10/31/17 [Hydrochlorothiazide] - Allergies Allergies/Adverse Reactions: Allergies Allergy/AdvReac Type Severity Reaction Status Date / Time atorvastatin calcium * AdvReac Cramps Verified 10/31/17 06:03 [From Lipitor] codeine AdvReac Nausea Verified 10/31/17 06:03 simvastatin AdvReac Cramps Verified 10/31/17 06:03 Review of Systems - Constitutional Constitutional: denies: Fatigue, Fever, Chills, Malaise, Weakness, Night sweats - Eyes Eyes: denies: Pain, Irritation, Blurred vision, Vision loss, Dipolpia - Ears, Nose & Throat Ears, Nose & Throat: denies: Ear pain, Hearing loss, Hearing aids, Tinnitus, Vertigo, Nasal pain, Nasal discharge - Cardiovascular Cariovascular: denies: Irregular heart rate, Palpitations, Chest pain, Edema, Syncope - Respiratory Respiratory: denies: Cough, Sputum production, Wheezing, Snoring, Hemoptysis, Orthopnea, SOB at rest - Gastrointestinal Gastrointestinal: denies: Abdominal pain, Abdominal distention, Constipation, Diarrhea, Change in bowel habits, Rectal bleeding - Genitourinary Genitourinary: denies: Dysuria, Frequency, Urgency, Hematuria - Musculoskeletal Musculoskeletal: denies: Muscle pain, Back pain, Muscle aches, Stiffness - Integumentary Integumentary: denies: Rash, Pruritis, Lesions, Dryness - Neurological Neurological: denies: General weakness, Focal weakness, Headache, Dizziness, Numbness, Memory problems - Psychiatric Psychiatric: denies: Depression, Anxiety, Suicidal, Hallucinations - Endocrine Endocrine: denies: Polyuria, Polydypsia, Polyphagia - Hematologic/Lymphatic Hematologic/Lymphatic: denies: Anemia, Bruising, Petechiae, Blood clots - All Other Systems All Other Systems: reports: Reviewed and negative Exam - Vital Signs Reviewed Vital Signs: Yes Vital Signs: Vital Signs x48h Temp Pulse Resp BP BP Pulse Ox 10/31/17 07:22 78 18 139/98 H 100 10/31/17 06:05 180/108 H 10/31/17 06:00 36.4 C L 85 24 180/108 H 99 - Physical Exam General Appearance: positive: No acute distress, Alert Eyes Bilateral: positive: Normal inspection, PERRL, EOMI, No lid inflammation, Conjunctivae nml ENT: positive: ENT inspection nml, Pharynx nml, No signs of dehydration Neck: positive: Nml inspection, Thyroid nml, No JVD, Trachea midline. negative : Thyromegaly Respiratory: positive: Chest non-tender, No respiratory distress, Breath sounds nml. negative: Wheezes, Rales, Rhonchi Cardiovascular: positive: Regular rate & rhythm, No murmur, No gallop. negative : Extrasystoles, Tachycardia, Bradycardia, Systolic murmur, Diastolic murmur Peripheral Pulses: positive: 1+ Abdomen: positive: Non-tender, No organomegaly, Nml bowel sounds, No distention Back: positive: Nml inspection. negative: CVA tenderness (R), CVA tenderness (L ) Skin: positive: Color nml, No rash, Warm, Dry. negative: Cyanosis Extremities: positive: Non-tender, Full ROM, Nml appearance Neurologic/Psychiatric: positive: Oriented x3, CN's nml (2-12), Motor nml, Sensation nml, Mood/affect nml Conclusion/Plan - Problem List (1) Coronary artery disease Conclusion/Plan: Patient has a history of coronary artery disease with previous myocardial infarction. She also has a history of congestive heart failure, hypertension and hypercholesterolemia. We will admit her to observation, continue with serial troponins, and obtain an echocardiogram and stress test if possible. (2) Chronic low back pain Conclusion/Plan: We will continue the patient on her current home medication regimen and will give her as needed medications as necessary for breakthrough pain. (3) Pulmonary embolism Conclusion/Plan: History several months ago of multiple PEs. CT angiogram of the chest did not show any evidence of pulmonary emboli today.Continue Xarelto Qualifiers: Pulmonary embolism type: other Chronicity: acute (4) Dyslipidemia Conclusion/Plan: Patient is allergic to statins, will continue her home medication regimen. (5) Chest pain Qualifiers: Chest pain type: unspecified Qualified Code(s): R07.9 - Chest pain, unspecified (6) Hypertension Conclusion/Plan: Controlled, continue home medication regimen. Qualifiers: Hypertension type: essential hypertension Qualified Code(s): I10 - Essential (primary) hypertension (7) Superior mesenteric artery stenosis Conclusion/Plan: The patient has been stented and does not have any abdominal complaints at this time.Will monitor. - Lab Results Lab results reviewed: Yes Fish Bones: 10/31/17 06:00 10/31/17 08:50 - Diagnostic Imaging Results Diagnostic Imaging Results: positive: Final report reviewed Diagnostic Imaging Results Comments: EXAM: CT ANGIOGRAM CHEST EXAM DATE: 10/31/2017 06:51 AM. CLINICAL HISTORY: Chest pain, hx of PE. COMPARISON: 06/09/2017. TECHNIQUE: Routine helical imaging was performed through the chest in the pulmonary arterial phase. IV Contrast: 80 cc Isovue 300. Reconstructions: Coronal 3-D MIP reconstructions.Sagittal and coronal. In accordance with CT protocol optimization, one or more of the following dose reduction techniques were utilized for this exam: automated exposure control, adjustment of mA and/or KV based on patient size, or use of iterative reconstructive technique. FINDINGS: Pulmonary Arteries: Diagnostic quality: Adequate through the segmental arteries. No evidence for acute or chronic pulmonary emboli. The previously seen bilateral pulmonary emboli are no longer present. RV/LV is within normal limits. There is no interventricular septal bowing. There is no reflux of contrast material in the IVC. Lungs/Pleura: No consolidation, nodules, or edema. No effusions or pneumothorax. Mediastinum: Normal. No cardiac enlargement or adenopathy. Thoracic Aorta: Unremarkable. Upper Abdomen: The proximal end of an SMA stent is partially visualized at the inferior margin of the images. The visualized upper abdomen is otherwise unremarkable. Other: No acute osseous abnormality or suspicious osseous lesion. IMPRESSION: Normal pulmonary CT angiogram. No pulmonary emboli. The previously seen pulmonary emboli and pulmonary opacities are no longer present. - EKG Results EKG Interpreted Independently: Yes EKG Comparison: Unchanged from prior EKG Core Measures - Anticipated LOS I expect patient to be DC'd or transferred within 96 hours.: Yes - DVT/VTE - Prophylaxis VTE/DVT Device ordered at admit?: Yes - AMI - Statin at Admit Aspirin Prescribed on Admit: Yes
[2017-10-31] MEDS ORDERED: ASPIRIN CHEW 81 MG TABLET PO SCH (09:24)
[2017-10-31] MEDS: PROCHLORPERAZINE 10 MG/2 ML VIAL IVP PRN (09:37)
[2017-10-31] MEDS ORDERED: SODIUM CHLORIDE FLUSH 0.9% 10 ML SYRINGE ONE (09:39)
[2017-10-31] MEDS: D5.45NS W/20 MEQ KCL 1,000 ML IV SCH ×2 (09:51→19:57)
[2017-10-31] MEDS: POLYETHYLENE GLYCOL 3350 17 GM PACKET PO SCH (09:51)
[2017-10-31] MEDS: SODIUM CHLORIDE FLUSH 0.9% 10 ML SYRINGE IVP SCH ×2 (09:52→19:57)
[2017-10-31] MEDS: ESTRADIOL 1 MG TABLET PO SCH (11:29)
[2017-10-31] MEDS: hydroCHLOROthiazide 25 MG TABLET PO SCH (11:29)
[2017-10-31] MEDS ORDERED: ATORVASTATIN 40 MG TABLET PO SCH ×2 (15:00→21:00)
[2017-10-31] MEDS: FLUoxetine 10 MG CAPSULE PO SCH (15:03)
[2017-10-31 20:40] LABS: BILIRUBIN,URINE NEGATIVE (NEGATIVE); GLUCOSE, URINE (UA) NEGATIVE (NEGATIVE); KETONES,URINE (UA) NEGATIVE (NEGATIVE); LEUKOCYTE ESTERASE, URINE NEGATIVE (NEGATIVE); NITRITE,URINE NEGATIVE (NEGATIVE); OCCULT BLOOD,URINE NEGATIVE (NEGATIVE); PH,URINE 5.5 PH (5.0-7.5); PROTEIN,URINE NEGATIVE (NEGATIVE); UROBILINOGEN,URINE 0.2 (NORMAL) E.U./dL (NORMAL)
[2017-10-31 20:45] LABS: CLARITY,URINE CLEAR (CLEAR)
[2017-11-01] MEDS: PROCHLORPERAZINE 10 MG/2 ML VIAL IVP PRN (05:47)
[2017-11-01] MEDS: D5.45NS W/20 MEQ KCL 1,000 ML IV SCH (05:55)
[2017-11-01 06:22] LABS: CHOL/HDL RATIO 3.3 (<4.4); CHOLESTEROL 141 mg/dL; HDL CHOLESTEROL 43 mg/dL; LDL CHOLESTEROL,CALCULATED 51 mg/dL; LDL/HDL RATIO 1.2 (<4.4); VLDL CHOLESTEROL 47 mg/dL
[2017-11-01] MEDS: SODIUM CHLORIDE FLUSH 0.9% 10 ML SYRINGE IVP SCH (06:32)
[2017-11-01 07:36] VITALS: BP 90/40
--- NOTE | 2017-11-01 08:52 | Discharge Plan ---
Discharge Plan Disposition: 01 Home, Self Care Condition: Fair Diet: Cardiac Activity Restrictions: No Restrictions Shower Restrictions: No Driving Restrictions: No Weight Bearing: Full Weight No Smoking: If you smoke, Please STOP! Call for help. Follow-up with: Ino Bustos MD [Primary Care Provider] -
--- NOTE | 2017-11-01 08:55 | DISCHARGE SUMMARY ---
"Discharge Summary Admit Date: 10/31/17 Discharge Date: 11/01/17 Discharging Provider: Sherin Hinojosa DO Primary Care Provider: Ino Bustos Code Status: Attempt Resuscitation Condition at Discharge: Fair Discharge Disposition: 01 Home, Self Care - DIAGNOSES Admission Diagnoses: 1. Coronary artery disease 2. Chronic low back pain 3. Pulmonary embolism 4. Dyslipidemia 5. Chest pain 6. Hypertension 7. Superior mesenteric artery stenosis Discharge Diagnoses with Status of Each Condition: 1. Coronary artery disease -The patient has a history of coronary artery disease with previous myocardial infarction. Is also history of congestive heart failure, hypertension, and hypercholesterolemia. Her troponins were negative [address] angiogram showed improvement from the last CT angiogram in that the pulmonary emboli and infiltrates had resolved. I have recommended that the patient have a stress echocardiogram done in the near future as an outpatient and that she return to the emergency room if she has any further complaints. 2. Chronic low back pain- I will give the patient a two-week trial of methadone for her chronic low back pain. She will follow-up with her primary care physician if this is effective. 3. Pulmonary embolism - None seen on repeat CT angiogram. Continue with Xarelto. 4. Dyslipidemia - Continue home Lipitor. 5. Chest pain- Resolved, if this becomes a chronic issue will consider long- term nitrates. 6. Hypertension - Well-managed, continue hydrochlorothiazide. 7. Superior mesenteric artery stenosis- Patient has been stented and has not had any complaints in this regard during this hospitalization. - HPI History of Present Illness: Mrs. Anderson Davis is a very pleasant 61 year old woman with a past medical history significant for coronary artery disease, congestive heart failure, myocardial infarction, hypertension, hypercholesterolemia, chronic back pain, and multiple pulmonary emboli. She began to experience chest pain and recognizes a similar pain to previous episode several months ago which she was found to have multiple pulmonary emboli. CT angiogram of the chest failed to show any new emboli however given her past medical history would be prudent to bring her in to rule out a cardiac event. - HOSPITAL COURSE Hospital Course: Mrs. Anderson Davis is a very pleasant 61 year old woman with a past medical history significant for coronary artery disease, congestive heart failure, myocardial infarction, hypertension, hypercholesterolemia, chronic back pain, and multiple pulmonary emboli. She began to experience chest pain and recognizes a similar pain to previous episode several months ago which she was found to have multiple pulmonary emboli. CT angiogram of the chest failed to show any new emboli however given her past medical history would be prudent to bring her in to rule out a cardiac event.The patient had 3 sets of troponins come back negative for any type of cardiac event, CT angiogram showed improvement of the patient's pulmonary emboli and in previous infiltrates, an echocardiogram showed an ejection fraction of 75%.The patient's symptoms have resolved and she will be discharged home with instructions to follow-up with her primary care physician in 1 week and to follow-up with the coupon redemption clerk in 1 week. It is highly recommended that she has a stress test. - ALLERGIES Allergies/Adverse Reactions: Allergies Allergy/AdvReac Type Severity Reaction Status Date / Time codeine AdvReac Nausea Verified 10/31/17 06:03 simvastatin AdvReac Cramps Verified 10/31/17 06:03 - MEDICATIONS Home Medications: Ambulatory Orders Medication Instructions Recorded Confirmed Promethazine [Phenergan] 25 mg PO Q8H PRN 02/14/16 10/31/17 diazePAM [Diazepam] 5 mg PO Q8H PRN 02/14/16 10/31/17 Fluoxetine HCl [Prozac] 20 mg PO DAILY 09/12/16 10/31/17 Rivaroxaban [Xarelto] 15 mg PO BID 07/02/17 10/31/17 Albuterol Sulf [Ventolin Hfa 1 - 2 puffs INH Q4H PRN 10/31/17 10/31/17 Inhaler] Atorvastatin [Lipitor] 10 mg PO DAILY 10/31/17 10/31/17 Cyclobenzaprine [Flexeril] 10 mg PO Q8H PRN 10/31/17 10/31/17 Estradiol [Estradiol] 0.5 mg PO DAILY 10/31/17 10/31/17 Omeprazole 20 mg PO QDAC 10/31/17 10/31/17 Oxycodone HCl/Acetaminophen 1 tab PO Q4H PRN 10/31/17 10/31/17 [Oxycodone-Acetaminophen 5-325] hydroCHLOROthiazide 25 mg PO DAILY 10/31/17 10/31/17 [Hydrochlorothiazide] Home Medications Other | Comments: Methadone, 5mg PO BID - PHYSICAL EXAM AT DISCHARGE General Appearance: positive: No acute distress, Alert Eyes Bilateral: positive: Normal inspection, PERRL, EOMI, No lid inflammation, Conjunctivae nml ENT: positive: ENT inspection nml, Pharynx nml, No signs of dehydration Neck: positive: Nml inspection, Thyroid nml, No JVD, Trachea midline. negative : Thyromegaly Respiratory: positive: Chest non-tender, No respiratory distress, Breath sounds nml. negative: Wheezes, Rales, Rhonchi Cardiovascular: positive: Regular rate & rhythm, No murmur, No gallop, Irregularly irregular, Extrasystoles. negative: Tachycardia Peripheral Pulses: positive: 1+ Abdomen: positive: Non-tender, No organomegaly, Nml bowel sounds, No distention. negative: Guarding, Rebound Back: positive: Nml inspection. negative: CVA tenderness (R), CVA tenderness (L ) Skin: positive: Color nml, No rash, Warm, Dry. negative: Cyanosis Extremities: positive: Non-tender, Full ROM, Nml appearance, No pedal edema Neurologic/Psychiatric: positive: Oriented x3, CN's nml (2-12), Motor nml, Sensation nml, Mood/affect nml - LABS Result Diagrams: 10/31/17 06:00 10/31/17 08:50 - DIAGNOSTIC IMAGING Diagnostic Imaging Results: Final report reviewed Diagnostic Imaging Results Comments: EXAM: CT ANGIOGRAM CHEST EXAM DATE: 10/31/2017 06:51 AM. CLINICAL HISTORY: Chest pain, hx of PE. COMPARISON: 06/09/2017. TECHNIQUE: Routine helical imaging was performed through the chest in the pulmonary arterial phase. IV Contrast: 80 cc Isovue 300. Reconstructions: Coronal 3-D MIP reconstructions.Sagittal and coronal. In accordance with CT protocol optimization, one or more of the following dose reduction techniques were utilized for this exam: automated exposure control, adjustment of mA and/or KV based on patient size, or use of iterative reconstructive technique. FINDINGS: Pulmonary Arteries: Diagnostic quality: Adequate through the segmental arteries. No evidence for acute or chronic pulmonary emboli. The previously seen bilateral pulmonary emboli are no longer present. RV/LV is within normal limits. There is no interventricular septal bowing. There is no reflux of contrast material in the IVC. Lungs/Pleura: No consolidation, nodules, or edema. No effusions or pneumothorax. Mediastinum: Normal. No cardiac enlargement or adenopathy. Thoracic Aorta: Unremarkable. Upper Abdomen: The proximal end of an SMA stent is partially visualized at the inferior margin of the images. The visualized upper abdomen is otherwise unremarkable. Other: No acute osseous abnormality or suspicious osseous lesion. IMPRESSION: Normal pulmonary CT angiogram. No pulmonary emboli. The previously seen pulmonary emboli and pulmonary opacities are no longer present. - FOLLOW UP Follow Up: With your primary care provider and cardiology within 1 week. Please get a stress test. - TIME SPENT Time Spent in Discharge (Minutes): 25"
[2017-11-01] MEDS ORDERED: RIVAROXABAN 15 MG TABLET PO SCH (09:00)
[2017-11-01] MEDS ORDERED: ESTRADIOL 0.5 MG PO SCH (09:00)
[2017-11-01] MEDS: ESTRADIOL 1 MG TABLET PO SCH (09:24)
[2017-11-01] MEDS: FLUoxetine 10 MG CAPSULE PO SCH (09:24)
[2017-11-01] MEDS: hydroCHLOROthiazide 25 MG TABLET PO SCH (09:24)
[2017-11-01] MEDS: POLYETHYLENE GLYCOL 3350 17 GM PACKET PO SCH (09:24)
== END 2017-11-01 09:15 | disposition home or self-care (01) ==
LOC: ED 05:54 → OBS 08:31
PROVIDERS: ADMIT Hospitalist; ATTEND Hospitalist
DX: I25.10 Atherosclerotic heart disease of native coronary artery without angina pectoris (principal); M54.5 Low back pain; G89.29 Other chronic pain; Z86.711 Personal history of pulmonary embolism; R07.9 Chest pain, unspecified; I11.0 Hypertensive heart disease with heart failure; I50.9 Heart failure, unspecified; Z95.5 Presence of coronary angioplasty implant and graft; I25.2 Old myocardial infarction; K21.9 Gastro-esophageal reflux disease without esophagitis; K91.1 Postgastric surgery syndromes; L29.9 Pruritus, unspecified; T48.3X5A Adverse effect of antitussives, initial encounter; Y92.238 Other place in hospital as the place of occurrence of the external cause; E78.5 Hyperlipidemia, unspecified; Z79.01 Long term (current) use of anticoagulants; Z87.891 Personal history of nicotine dependence; Z88.8 Allergy status to other drugs, medicaments and biological substances
CPT/HCPCS: 36415; 71275; 80048; 80053; 80061; 81003; 83605; 83690; 83735; 83880; 84100; 84443; 84484; 85025; 85610; 85730; 93005; 93306; 96361; 96365; 96375; 96376; 99284; 99285; A9270; G0378; J1170; Q9967; 81001; 83721; 87086

== ENCOUNTER 2017-12-19 08:09 | Emergency (ER) | payer MEDICAID ==
--- NOTE | 2017-12-19 08:49 | XRAY Report ---
EXAM: CHEST RADIOGRAPHY EXAM DATE: 12/19/2017 08:36 AM. CLINICAL HISTORY: Cough. COMPARISON: 10/10/2017. TECHNIQUE: 1 view. FINDINGS: Lungs/Pleura: No focal opacities evident. No pleural effusion. No pneumothorax. Mediastinum: Within exam limitations, the cardiomediastinal contour is normal. Mild aortic atheroscle rosis. Other: None. IMPRESSION: Normal single view chest for age and body habitus. No significant change from prior. [facility] Referring Provider Line: [phone] SITE ID: [id number]
[2017-12-19 08:54] LABS: BASOPHILS # (AUTO) 0.1 10^3/uL (0.0-0.1); BASOPHILS % (AUTO) 0.9 %; EOSINOPHILS # (AUTO) 0.2 10^3/uL (0.0-0.7); EOSINOPHILS % (AUTO) 2.2 %; HGB - HEMOGLOBIN 14.1 g/dL (12.0-16.0); LYMPHOCYTES # (AUTO) 2.1 10^3/uL (1.5-3.5); LYMPHOCYTES % (AUTO) 29.4 %; MEAN CORPUSCULAR HEMOGLOBIN 30.6 pg (27.0-31.0); MEAN CORPUSCULAR HGB CONC 34.9 g/dL (32.0-36.0); MEAN CORPUSCULAR VOLUME 87.6 fL (81.0-99.0); MEAN PLATELET VOLUME 7.4 fL (7.9-10.8); MONOCYTES # (AUTO) 0.4 10^3/uL (0.0-1.0); NEUTROPHILS # (AUTO) 4.4 10^3/uL (1.5-6.6); NEUTROPHILS % (AUTO) 61.5 %; PLT - PLATELET COUNT 330 10^3/uL (130-450); RED CELL DISTRIBUTION WIDTH 13.6 % (12.0-15.0); WHITE BLOOD COUNT 7.2 x10^3/uL (4.8-10.8)
[2017-12-19 09:11] LABS: ALBUMIN 4.4 g/dL (3.2-5.5); ALBUMIN/GLOBULIN RATIO 1.3 (1.0-2.2); BILIRUBIN,TOTAL 1.2 mg/dL (0.2-1.0); CALCIUM 9.4 mg/dL (8.5-10.3); CREATININE 0.9 mg/dL (0.4-1.0); TOTAL PROTEIN 7.9 g/dL (6.7-8.2)
[2017-12-19] MEDS ORDERED: RIVAROXABAN 15 MG TABLET PO STA (09:43)
[2017-12-19] MEDS ORDERED: POTASSIUM CHLORIDE 20 MEQ TABLET PO STA (09:44)
--- NOTE | 2017-12-19 09:44 | ED Physician Documentation ---
History of Present Illness - Stated complaint Stated Complaint: FATIGUE/COUGH/WHEEZING - Chief complaint Chief Complaint: Resp - Additonal information Additional information: hx from pt 62 female with a clotting disorder hx PE's also hx mesenteric ischemia with mesenteric stents and colon resection supposd to be on xarelto but has had to repeatedly hold for prodedures etc has not taken today dose to ER with CP substernal soa productive cough - feels like prior PEs sx started 3 days ago with fatigue and weakness - had to leave pentecostalism early and sleep all day, then progressive SOA and cough has had some chest pain since laste last week also saw PMD for upper back pain last week and has a MRI ordered Review of Systems Constitutional: denies: Fever Cardiac: reports: Chest pain / pressure Respiratory: reports: Dyspnea, Cough, Wheezing GI: denies: Abdominal Pain Endocrine: reports: Easy bruising / bleeding Immunocompromised: denies: Immunocompromised PD PAST MEDICAL HISTORY - Past Medical History Cardiovascular: Congestive heart failure, Hypertension, High cholesterol, [place] Respiratory: None Neuro: None Endocrine/Autoimmune: None GI: GERD, 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 : None HEENT: None Psych: None Musculoskeletal: None Derm: None - Past Surgical History Past Surgical History: Yes General: 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 surgery /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: Hysterectomy Cardiovascular: Other HEENT: Other - Present Medications Home Medications: Ambulatory Orders Medication Instructions Recorded Confirmed Promethazine [Phenergan] 25 mg PO Q8H PRN 02/14/16 10/31/17 diazePAM [Diazepam] 5 mg PO Q8H PRN 02/14/16 10/31/17 Fluoxetine HCl [Prozac] 20 mg PO DAILY 09/12/16 10/31/17 Rivaroxaban [Xarelto] 15 mg PO BID 07/02/17 10/31/17 Albuterol Sulf [Ventolin Hfa 1 - 2 puffs INH Q4H PRN 10/31/17 10/31/17 Inhaler] Atorvastatin [Lipitor] 10 mg PO DAILY 10/31/17 10/31/17 Cyclobenzaprine [Flexeril] 10 mg PO Q8H PRN 10/31/17 10/31/17 Estradiol [Estradiol] 0.5 mg PO DAILY 10/31/17 10/31/17 Omeprazole 20 mg PO QDAC 10/31/17 10/31/17 Oxycodone HCl/Acetaminophen 1 tab PO Q4H PRN 10/31/17 10/31/17 [Oxycodone-Acetaminophen 5-325] hydroCHLOROthiazide 25 mg PO DAILY 10/31/17 10/31/17 [Hydrochlorothiazide] Benzonatate [Tessalon] 100 mg PO TID PRN #20 capsule 12/19/17 Lidocaine Patch 5% [Lidoderm Patch] 1 each TOP DAILY PRN #10 patch 12/19/17 guaiFENesin/DEXTROMETHORPHAN 10 ml PO Q6H PRN #120 ml 12/19/17 [Robitussin Dm] - Allergies Allergies/Adverse Reactions: Allergies Allergy/AdvReac Type Severity Reaction Status Date / Time codeine AdvReac Nausea Verified 10/31/17 06:03 simvastatin AdvReac Cramps Verified 10/31/17 06:03 - Social History Does the pt smoke?: Yes Smoking Status: Current every day smoker Does the pt drink ETOH?: No Does the pt have substance abuse?: Yes - Immunizations Immunizations are current?: Yes Immunizations: TDAP >10years/unknown - POLST Patient has POLST: No POLST Status: Full Code PD ED PE NORMAL - Vitals Vital signs reviewed: Yes - General General: Alert and oriented X 3 - HEENT HEENT: PERRL - Neck Neck: Supple, no meningeal sign - Cardiac Cardiac: RRR - Respiratory Respiratory: No respiratory distress, Clear bilaterally - Abdomen Abdomen: Soft, Non tender - Derm Derm: Normal color - Neuro Neuro: Alert and oriented X 3 Results - Vitals Vitals: Vital Signs - 24 hr 12/19/17 12/19/17 12/19/17 08:13 08:25 09:56 Temperature 36.4 C L Heart Rate 85 92 Respiratory 20 20 Rate Blood Pressure 163/99 H 158/112 H O2 Saturation 100 99 12/19/17 11:28 Temperature Heart Rate 73 Respiratory 14 Rate Blood Pressure O2 Saturation 93 Oxygen O2 Source Room air - EKG (time done) 0817 Rate: Rate (enter#) (76) Rhythm: NSR [place]: LAD Intervals: Normal TN Ischemia: Non specific changes Other comments: Other comments (similar to 10/31/17) - Labs Labs: Laboratory Tests 12/19/17 12/19/17 12/19/17 08:48 08:48 08:48 WBC 7.2 RBC 4.60 Hgb 14.1 Hct 40.3 MCV 87.6 MCH 30.6 MCHC 34.9 RDW 13.6 Plt Count 330 MPV 7.4 L Neut # 4.4 Lymph # 2.1 [place] # 0.4 Eos # 0.2 Baso # 0.1 Absolute Nucleated RBC 0.00 Nucleated RBC % 0.0 D-Dimer 216.3 Sodium 137 Potassium 2.7 L Chloride 100 L Carbon Dioxide 25 Anion Gap 12.0 BUN 11 Creatinine 0.9 Estimated GFR (MDRD) 63 L Glucose 100 Calcium 9.4 Total Bilirubin 1.2 H AST 26 ALT 18 Alkaline Phosphatase 103 Troponin I B-Natriuretic Peptide Total Protein 7.9 Albumin 4.4 Globulin 3.5 Albumin/Globulin Ratio 1.3 Lipase 13 L 12/19/17 12/19/17 08:48 08:48 WBC RBC Hgb Hct MCV MCH MCHC RDW Plt Count MPV Neut # Lymph # [place] # Eos # Baso # Absolute Nucleated RBC Nucleated RBC % D-Dimer Sodium Potassium Chloride Carbon Dioxide Anion Gap BUN Creatinine Estimated GFR (MDRD) Glucose Calcium Total Bilirubin AST ALT Alkaline Phosphatase Troponin I < 0.04 B-Natriuretic Peptide 21 Total Protein Albumin Globulin Albumin/Globulin Ratio Lipase - Rads (name of study) CXR Radiology: See rad report (nl portable chest) CT chest with contrast Radiology: See rad report (no acute abn, no aneurysm, no dissection, no large PE (no angio access so could not precisely time for PE study), SMA graft) PD MEDICAL DECISION MAKING - ED course ED course: pt has no CTA compatible access despite numeorous attempts will non angio IV con CT pt - if no infarct seen or alt cause of sx will presume another PE - hemodynamically stable - low risk per simplified PE severity index - could dc on xarelto CT no alternate dx - no dissection aneurysm, pna pneumo etc also trop neg after CP upper back pain since last week makes ACS unlikely may have a small new PE will dc on xarelto as before, continue her oxycodone for pain, lido patches and cough meds as needed, fup PMD for MRi as planned Departure - Departure Disposition: 01 Home, Self Care Clinical Impression: Hypokalemia Chest pain Qualifiers: Chest pain type: unspecified Qualified Code(s): R07.9 - Chest pain, unspecified Dyspnea Qualifiers: Dyspnea type: unspecified Qualified Code(s): R06.00 - Dyspnea, unspecified Back pain Qualifiers: Back pain location: thoracic back pain Chronicity: unspecified Back pain laterality: unspecified Qualified Code(s): M54.6 - Pain in thoracic spine Follow-Up: Ino Bustos MD [Primary Care Provider] - Prescriptions: Benzonatate [Tessalon] 100 mg PO TID PRN #20 capsule PRN Reason: to ease cough guaiFENesin/DEXTROMETHORPHAN [Robitussin Dm] 10 ml PO Q6H PRN #120 ml PRN Reason: Cough Lidocaine Patch 5% [Lidoderm Patch] 1 each TOP DAILY PRN #10 patch PRN Reason: Pain Comments: The tests we did today are reassuring The EKG and blood tests do not suggest the chest and back pain are due to a heart attack The chest xray did not show pneumonia The CT scan was not an angiogram so could not evaluate for small PEs - but did not show any lung infection, any fluid around the heart or lungs, an aneurysm or tear of your aorta or any large PEs or infarcts. I suspect you have a new small PE that cannot be seen on this CT. Since your blood pressure and ocysgen levels etc are fine and you are already on xarelto, I think it is safe for you to go home. Take your xarelto every day as prescribed. Take your percocet as needed for pain - I also prescribed lidociane patches. And I have prescribed cough medications as well in addition to your albuterol in haler Please follow up with your PMD for a recheck before the end of the week. Return to the ER if worse And please get your blood pressure rechecked - it was high today
[2017-12-19] MEDS ORDERED: IOPAMIDOL-300 100 ML VIAL ONE (10:27)
[2017-12-19] MEDS ORDERED: IOPAMIDOL-300 100 ML VIAL IVP ONE (10:45)
--- NOTE | 2017-12-19 10:58 | CT Report ---
EXAM: CT CHEST EXAM DATE: 12/19/2017 10:43 AM. CLINICAL HISTORY: Cp soa hx PE off on xarelto. COMPARISON: 10/31/2017. TECHNIQUE: Routine helical CT imaging was performed through the chest. IV contrast: 80 cc Isovue 300. Reconstructions: Coronal and sagittal. In accordance with CT protocol optimization, one or more of the following dose reduction techniques w ere utilized for this exam: automated exposure control, adjustment of mA and/or KV based on patient s ize, or use of iterative reconstructive technique. FINDINGS: Lungs/Pleura: Mildly suboptimal evaluation secondary to respiratory motion artifact. No evidence of n odules, bronchial thickening, consolidation, or edema. Pulmonary vasculature is normal; no evidence o f large pulmonary embolism. No pleural effusion. No pneumothorax. Mediastinum: The heart size is normal. No pericardial effusion. No adenopathy. Small sliding hiatal h ernia. Mild thoracic aortic atherosclerosis without aneurysm. Bones: Unremarkable. Visualized Abdomen: SMA stent graft partially imaged. Other: None. IMPRESSION: No acute abnormality in the chest. No significant change from prior allowing for differen renee in technique. Please note that this study was not tailored for evaluation of the pulmonary arteri es. No large pulmonary embolism demonstrated, but segmental or smaller pulmonary emboli are not exclu ded. [facility] Referring Provider Line: [phone] SITE ID: [id number]
[2017-12-19] MEDS ORDERED: MORPHINE 2 MG/ML SYRINGE IVP STA ×2 (11:02→12:34)
[2017-12-19] MEDS ORDERED: ONDANSETRON 4 MG/2 ML VIAL IVP STA (11:16)
[2017-12-19] MEDS ORDERED: ONDANSETRON 4 MG/2 ML VIAL ONE (11:22)
[2017-12-19] MEDS ORDERED: oxyCODONE 5 MG TABLET PO STA (12:34)
[2017-12-19 13:29] VITALS: BP 168/101
== END 2017-12-19 13:44 | disposition home or self-care (01) ==
LOC: ED 08:09
DX: E87.6 Hypokalemia (principal); R07.9 Chest pain, unspecified; R06.00 Dyspnea, unspecified; M54.6 Pain in thoracic spine; R94.31 Abnormal electrocardiogram [ECG] [EKG]; I11.0 Hypertensive heart disease with heart failure; I50.9 Heart failure, unspecified; I25.2 Old myocardial infarction; E78.00 Pure hypercholesterolemia, unspecified; F17.200 Nicotine dependence, unspecified, uncomplicated
CPT/HCPCS: 36415; 71045; 71260; 80053; 83690; 83880; 84484; 85025; 85379; 93005; 96374; 96376; 99284; A9270; J2270; Q9967

== ENCOUNTER 2018-04-10 12:57 | Outpatient (CLI) | payer MEDICAID | END 2018-04-10 12:58 | disposition critical access hospital (66) | LOC: EMS 12:57 | PROVIDERS: ATTEND Surgery | DX: R10.9 Unspecified abdominal pain (principal) | CPT/HCPCS: A0425; A0429; A0999 ==

== ENCOUNTER 2018-04-10 13:09 | Emergency (ER) | payer MEDICAID ==
--- NOTE | 2018-04-10 13:22 | ED Physician Documentation ---
PD HPI ABD PAIN - Stated complaint Stated Complaint: Abd px - History obtained from History obtained from: Patient - History of Present Illness Timing - onset: Today Timing - duration: Hours Timing - details: Gradual onset, Still present Quality: Cramping, Aching, Pain Location: Epigastric, Other (upper abd) Radiation: No: Left flank, Right flank Improved by: Vomiting Worsened by: Eating Associated symptoms: Nausea, Vomiting, Diarrhea (chronic loose (dumping syndrome )). No: Fever, Constipation, Melena Similar symptoms before: Diagnosis Recently seen: Not recently seen Review of Systems Constitutional: denies: Fever, Chills, Myalgias Nose: denies: Rhinorrhea / runny nose, Congestion Throat: denies: Sore throat Respiratory: denies: Cough GI: reports: Abdominal Pain, Nausea, Vomiting. denies: Diarrhea : denies: Dysuria, Frequency Skin: denies: Rash, Lesions Neurologic: reports: Generalized weakness. 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 Cardiovascular: Other HEENT: Other - Present Medications Home Medications: Ambulatory Orders Medication Instructions Recorded Confirmed Promethazine [Phenergan] 25 mg PO Q8H PRN 02/14/16 10/31/17 diazePAM [Diazepam] 5 mg PO Q8H PRN 02/14/16 10/31/17 Fluoxetine HCl [Prozac] 20 mg PO DAILY 09/12/16 10/31/17 Rivaroxaban [Xarelto] 15 mg PO BID 07/02/17 10/31/17 Albuterol Sulf [Ventolin Hfa 1 - 2 puffs INH Q4H PRN 10/31/17 10/31/17 Inhaler] Atorvastatin [Lipitor] 10 mg PO DAILY 10/31/17 10/31/17 Cyclobenzaprine [Flexeril] 10 mg PO Q8H PRN 10/31/17 10/31/17 Estradiol [Estradiol] 0.5 mg PO DAILY 10/31/17 10/31/17 Omeprazole 20 mg PO QDAC 10/31/17 10/31/17 Oxycodone HCl/Acetaminophen 1 tab PO Q4H PRN 10/31/17 10/31/17 [Oxycodone-Acetaminophen 5-325] hydroCHLOROthiazide 25 mg PO DAILY 10/31/17 10/31/17 [Hydrochlorothiazide] Benzonatate [Tessalon] 100 mg PO TID PRN #20 capsule 12/19/17 Lidocaine Patch 5% [Lidoderm Patch] 1 each TOP DAILY PRN #10 patch 12/19/17 guaiFENesin/DEXTROMETHORPHAN 10 ml PO Q6H PRN #120 ml 12/19/17 [Robitussin Dm] Potassium Bicarbonate 25 meq PO DAILY #10 tablet 04/10/18 [K-Effervescent] - Allergies Allergies/Adverse Reactions: Allergies Allergy/AdvReac Type Severity Reaction Status Date / Time codeine AdvReac Nausea Verified 10/31/17 06:03 simvastatin AdvReac Cramps Verified 10/31/17 06:03 - Social History Does the pt smoke?: Yes Smoking Status: Current every day smoker Does the pt drink ETOH?: No Does the pt have substance abuse?: Yes Substance Use and Type: Marijuana - Family History Family history: reports: Non contributory - Immunizations Immunizations are current?: Yes Immunizations: TDAP >10years/unknown - POLST Patient has POLST: No POLST Status: Full Code PD ED PE NORMAL - Vitals Vital signs reviewed: Yes - General General: Alert and oriented X 3, Well developed/nourished, Other (marked discomfort due to pain and nausea. ) - HEENT HEENT: Pharynx benign - Neck Neck: Supple, no meningeal sign, No adenopathy - Cardiac Cardiac: RRR, No murmur - Respiratory Respiratory: Clear bilaterally - Abdomen Abdomen: Soft, Non distended, No organomegaly, Other (tender with guarding upper abd. Decreased bowel sounds. ) - Female Female : Deferred - Rectal Rectal: Deferred - Back Back: No CVA TTP - Derm Derm: Normal color, Warm and dry - Extremities Extremities: No deformity, No tenderness to palpate, Normal ROM s pain, No edema , No calf tenderness / cord - Neuro Neuro: Alert and oriented X 3, No motor deficit, Normal speech Eye Opening: Spontaneous Motor: Obeys Commands Verbal: Oriented GCS Score: 15 Results - Vitals Vitals: Vital Signs - 24 hr 04/10/18 04/10/18 04/10/18 13:15 16:45 16:51 Temperature 36.2 C L Heart Rate 66 78 Respiratory 18 16 Rate Blood Pressure 127/78 124/74 O2 Saturation 98 87 L 97 04/10/18 18:30 Temperature 36.5 C Heart Rate 71 Respiratory 18 Rate Blood Pressure 111/69 O2 Saturation 96 Oxygen O2 Source Nasal cannula Oxygen Flow Rate 2 - Labs Labs: Laboratory Tests 04/10/18 04/10/18 04/10/18 13:58 13:58 13:58 WBC 6.4 RBC 4.31 Hgb 13.3 Hct 38.7 MCV 89.6 MCH 30.8 MCHC 34.3 RDW 13.4 Plt Count 332 MPV 7.3 L Neut # (Auto) 3.5 Lymph # (Auto) 2.4 [place] # (Auto) 0.3 Eos # (Auto) 0.2 Baso # (Auto) 0.1 Absolute Nucleated RBC 0.00 Nucleated RBC % 0.0 Sodium 139 Potassium 2.5 L* Chloride 104 Carbon Dioxide 23 Anion Gap 12.0 BUN 11 Creatinine 1.1 H Estimated GFR (MDRD) 50 L Glucose 96 Lactic Acid 2.0 Calcium 9.7 Phosphorus 2.3 L Magnesium 1.6 L Total Bilirubin 1.1 H AST 24 ALT 19 Alkaline Phosphatase 108 Total Protein 7.4 Albumin 4.1 Globulin 3.3 Albumin/Globulin Ratio 1.2 Lipase 32 - Rads (name of study) abd CT Radiology: Prelim report reviewed (no acute process), EMP read contemporaneously PD MEDICAL DECISION MAKING - ED course Complexity details: reviewed results, considered differential (has intermittent abd pains like this (does use marijuana regularly) but has had ischemic colitis with stents in the past. Abd pain not readily improving with first meds, so got CT scan to ensure no obstruction and patent flow. The CT did not show acute process. She was improved better with more meds, including Haldol for nausea. She felt able to go home. ), d/w patient - Sepsis Event Vital Signs: Vital Signs - 24 hr 04/10/18 04/10/18 04/10/18 13:15 16:45 16:51 Temperature 36.2 C L Heart Rate 66 78 Respiratory 18 16 Rate Blood Pressure 127/78 124/74 O2 Saturation 98 87 L 97 04/10/18 18:30 Temperature 36.5 C Heart Rate 71 Respiratory 18 Rate Blood Pressure 111/69 O2 Saturation 96 Oxygen O2 Source Nasal cannula Oxygen Flow Rate 2 Departure - Departure Disposition: 01 Home, Self Care Clinical Impression: Upper abdominal pain Nausea and vomiting Qualifiers: Vomiting type: bilious vomiting Qualified Code(s): R11.14 - Bilious vomiting Condition: Stable Record reviewed to determine appropriate education?: Yes Follow-Up: Ino Bustos MD [Primary Care Provider] - Prescriptions: Potassium Bicarbonate [K-Effervescent] 25 meq PO DAILY #10 tablet Comments: Small frequent fluids and foods at home as usual. Continue home medications. Follow-up with your primary care and gas draw and her neurologist as needed. You did have a low potassium here and he would want to take a potassium supplement over the next week or so. Discharge Date/Time: 04/10/18 18:30
[2018-04-10] MEDS ORDERED: SODIUM CHLORIDE 0.9% 1,000 ML IV ONE ×2 (13:40→16:32)
[2018-04-10] MEDS ORDERED: ONDANSETRON 4 MG/2 ML VIAL IVP STA (13:40)
[2018-04-10] MEDS ORDERED: MORPHINE 10 MG/ML VIAL IVP STA (13:40)
[2018-04-10 14:07] LABS: BASOPHILS # (AUTO) 0.1 10^3/uL (0.0-0.1); BASOPHILS % (AUTO) 0.9 %; EOSINOPHILS # (AUTO) 0.2 10^3/uL (0.0-0.7); EOSINOPHILS % (AUTO) 2.5 %; HGB - HEMOGLOBIN 13.3 g/dL (12.0-16.0); LYMPHOCYTES # (AUTO) 2.4 10^3/uL (1.5-3.5); LYMPHOCYTES % (AUTO) 37.5 %; MEAN CORPUSCULAR HEMOGLOBIN 30.8 pg (27.0-31.0); MEAN CORPUSCULAR HGB CONC 34.3 g/dL (32.0-36.0); MEAN CORPUSCULAR VOLUME 89.6 fL (81.0-99.0); MEAN PLATELET VOLUME 7.3 fL (7.9-10.8); MONOCYTES # (AUTO) 0.3 10^3/uL (0.0-1.0); MONOCYTES % (AUTO) 5.4 %; NEUTROPHILS # (AUTO) 3.5 10^3/uL (1.5-6.6); NEUTROPHILS % (AUTO) 53.7 %; PLT - PLATELET COUNT 332 10^3/uL (130-450); RED BLOOD COUNT 4.31 10^6/uL (4.20-5.40); RED CELL DISTRIBUTION WIDTH 13.4 % (12.0-15.0); WHITE BLOOD COUNT 6.4 x10^3/uL (4.8-10.8)
[2018-04-10 14:26] LABS: ALBUMIN 4.1 g/dL (3.2-5.5); ALBUMIN/GLOBULIN RATIO 1.2 (1.0-2.2); BILIRUBIN,TOTAL 1.1 mg/dL (0.2-1.0); CALCIUM 9.7 mg/dL (8.5-10.3); CREATININE 1.1 mg/dL (0.4-1.0); MAGNESIUM 1.6 mg/dL (1.7-2.8); PHOSPHORUS 2.3 mg/dL (2.5-4.6); TOTAL PROTEIN 7.4 g/dL (6.7-8.2)
[2018-04-10] MEDS ORDERED: POTASSIUM CHLOR 10 MEQ/100 ML 10 MEQ/100 ML BAG IV ONE (14:28)
[2018-04-10] MEDS ORDERED: HALOPERIDOL 5 MG/ML VIAL IVP ONE (14:40)
[2018-04-10] MEDS ORDERED: HYDROmorphone 1 MG/ML CARPUJECT IVP STA (14:40)
[2018-04-10] MEDS ORDERED: IOPAMIDOL-300 100 ML VIAL ONE (15:39)
[2018-04-10] MEDS ORDERED: diphenhydrAMINE INJ 50 MG/ML VIAL IVP STA (16:32)
[2018-04-10] MEDS ORDERED: IOPAMIDOL-300 100 ML VIAL IVP ONE (16:37)
--- NOTE | 2018-04-10 16:57 | CT Report ---
Procedure Date: 04/10/2018 Accession Number: [id number] / [id number] Procedure: CT - Abdomen/Pelvis W/ CPT Code: FULL RESULT: EXAM: CT ABDOMEN AND PELVIS EXAM DATE: 04/10/2018 04:31 PM. CLINICAL HISTORY: Upper/mid abd pain today. COMPARISONS: 09/11/2016. TECHNIQUE: Routine helical CT imaging was performed through the abdomen and pelvis. IV contrast: 100 ML ISOVUE 300. Enteric contrast: No. Reconstructions: Coronal and sagittal. In accordance with CT protocol optimization, one or more of the following dose reduction techniques were utilized for this exam: automated exposure control, adjustment of mA and/or KV based on patient size, or use of iterative reconstructive technique. FINDINGS: Lung Bases: Minimal dependent bibasilar atelectasis. Liver: Normal size and contour. Mild fatty infiltration and minimal focal fatty sparing at the gallbladder fossa. Gallbladder/Bile Ducts: Unremarkable. Spleen: Normal. Pancreas: Normal. Adrenal Glands: Normal. Kidneys: Normal. No masses or hydronephrosis. Peritoneal Cavity/Bowel: Unopacified stomach and small bowel are nondistended. There is an anastomotic staple line in the terminal ilium. No small bowel wall thickening or inflammatory changes identified. Retrocecal appendix is normal. There is minimal formed stool scattered in the colon. There is minimal sigmoid colon diverticulosis. There is no pericolonic fat stranding. There is no lymphadenopathy, ascites, or pneumoperitoneum. Pelvic Organs: Bladder is unremarkable. Uterus is surgically absent. No adnexal masses are identified. Vasculature: Proximal SMA stent. The SMA distal to the stent appears normal in enhancement and size. Celiac axis and POLLY are unremarkable. There is minimal calcified plaque in bilateral common iliac arteries. Bones: Mild multilevel lumbar degenerative disk disease. Other: Abdominal wall is unremarkable. IMPRESSION: 1. No findings to explain abdominal pain. 2. Hepatic steatosis. 3. Proximal SMA stent. Mesenteric vasculature otherwise is unremarkable. [facility]
[2018-04-10 18:33] VITALS: BP 111/69
== END 2018-04-10 18:30 | disposition home or self-care (01) ==
LOC: EDUNIT# → ED 13:09
DX: R10.10 Upper abdominal pain, unspecified (principal); R11.14 Bilious vomiting; I11.0 Hypertensive heart disease with heart failure; I50.9 Heart failure, unspecified; I25.2 Old myocardial infarction; E78.00 Pure hypercholesterolemia, unspecified; F17.200 Nicotine dependence, unspecified, uncomplicated; F12.90 Cannabis use, unspecified, uncomplicated
CPT/HCPCS: 36415; 74177; 80053; 83605; 83690; 83735; 84100; 85025; 96361; 96365; 96366; 96375; 99283; 99284; J1170; J1200; Q9967

== ENCOUNTER 2018-10-19 08:51 | Emergency (ER) | payer MEDICAID ==
[2018-10-19] MEDS ORDERED: NITROGLYCERIN SL 0.4 MG TABLET SL STA (09:18)
[2018-10-19] MEDS ORDERED: ASPIRIN CHEW 81 MG TABLET PO STA (09:18)
--- NOTE | 2018-10-19 09:25 | ED Physician Documentation ---
PD HPI CHEST PAIN - Stated complaint Stated Complaint: CHEST PX/SOA - Chief complaint Chief Complaint: Cardiac - History obtained from History obtained from: Patient - History of Present Illness Timing - onset: Last night Timing - onset during: Rest Timing - details: Still present (worse this morning.) Pain level now: 8 Quality: Pain Location: Substernal Radiation: Neck Associated symptoms: Shortness of air, Nausea. No: Diaphoresis, Vomiting - Additional information Additional information: The patient is a 62-year-old female who presents with substernal chest pain. It started last night about 5 PM, but has become worse this morning. This morning the pain radiates to her neck. She reports associated dyspnea and nausea. She denies vomiting or diaphoresis. She has history of mesenteric ischemia, and is 2 years status post placement of mesenteric stents. She denies previous MO, but reports history of CHF. She does have history of pulmonary emboli, treated with Xarelto. Review of Systems Constitutional: denies: Fever Ears: denies: Tinnitus/ringing Nose: denies: Congestion Throat: denies: Sore throat Cardiac: reports: Chest pain / pressure. denies: Palpitations Respiratory: reports: Dyspnea, Cough GI: reports: Nausea. denies: Abdominal Pain, Vomiting : denies: Dysuria Skin: denies: Rash Musculoskeletal: reports: Back pain (chronically). 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: Hysterectomy Cardiovascular: Other HEENT: Other - Present Medications Home Medications: Ambulatory Orders Medication Instructions Recorded Confirmed Promethazine [Phenergan] 25 mg PO Q8H PRN 02/14/16 10/31/17 diazePAM [Diazepam] 5 mg PO Q8H PRN 02/14/16 10/31/17 Fluoxetine HCl [Prozac] 20 mg PO DAILY 09/12/16 10/31/17 Rivaroxaban [Xarelto] 15 mg PO BID 07/02/17 10/31/17 Albuterol Sulf [Ventolin Hfa 1 - 2 puffs INH Q4H PRN 10/31/17 10/31/17 Inhaler] Atorvastatin [Lipitor] 10 mg PO DAILY 10/31/17 10/31/17 Cyclobenzaprine [Flexeril] 10 mg PO Q8H PRN 10/31/17 10/31/17 Estradiol 0.5 mg PO DAILY 10/31/17 10/31/17 Omeprazole 20 mg PO QDAC 10/31/17 10/31/17 Oxycodone HCl/Acetaminophen 1 tab PO Q4H PRN 10/31/17 10/31/17 [Oxycodone-Acetaminophen 5-325] hydroCHLOROthiazide 25 mg PO DAILY 10/31/17 10/31/17 [Hydrochlorothiazide] Benzonatate [Tessalon] 100 mg PO TID PRN #20 capsule 12/19/17 Lidocaine Patch 5% [Lidoderm Patch] 1 each TOP DAILY PRN #10 patch 12/19/17 guaiFENesin/DEXTROMETHORPHAN 10 ml PO Q6H PRN #120 ml 12/19/17 [Robitussin Dm] Potassium Bicarbonate 25 meq PO DAILY #10 tablet 04/10/18 [K-Effervescent] Omeprazole 20 mg PO DAILY #30 capsule. 10/19/18 - Allergies Allergies/Adverse Reactions: Allergies Allergy/AdvReac Type Severity Reaction Status Date / Time codeine AdvReac Nausea Verified 10/19/18 09:02 simvastatin AdvReac Cramps Verified 10/19/18 09:02 - Social History Does the pt smoke?: Yes Smoking Status: Current every day smoker Does the pt drink ETOH?: No Does the pt have substance abuse?: Yes - Immunizations Immunizations are current?: Yes Immunizations: TDAP >10years/unknown - POLST Patient has POLST: No POLST Status: Full Code PD ED PE NORMAL - Vitals Vital signs reviewed: Yes (Mild systolic hypertension.) - General General: Alert and oriented X 3, Well developed/nourished, Other (Appears uncomfortable.) - HEENT HEENT: Atraumatic, Pharynx benign - Neck Neck: Supple, no meningeal sign, No adenopathy, No bruit - Cardiac Cardiac: RRR, No murmur - Respiratory Respiratory: No respiratory distress, Clear bilaterally - Abdomen Abdomen: Soft, Other (Epigastric discomfort to palpation.) - Back Back: No CVA TTP - Derm Derm: No rash - Extremities Extremities: No edema, No calf tenderness / cord - Neuro Neuro: Alert and oriented X 3, No motor deficit, No sensory deficit Results - Vitals Vitals: Vital Signs - 24 hr 10/19/18 10/19/18 10/19/18 08:58 09:22 09:26 Temperature 35.7 C L Heart Rate 69 66 72 Respiratory 14 16 16 Rate Blood Pressure 145/80 H 130/92 H 101/57 L O2 Saturation 100 100 100 10/19/18 10/19/18 10/19/18 09:35 09:40 10:01 Temperature Heart Rate 72 67 65 Respiratory 14 18 20 Rate Blood Pressure 119/74 121/69 122/99 H O2 Saturation 100 98 100 10/19/18 10/19/18 10/19/18 10:23 11:15 11:52 Temperature Heart Rate 59 L 62 65 Respiratory 16 16 14 Rate Blood Pressure 114/66 95/61 109/69 O2 Saturation 100 98 99 Oxygen O2 Source Room air - Labs Labs: Laboratory Tests 10/19/18 10/19/18 10/19/18 09:14 09:14 09:14 WBC 5.8 RBC 4.45 Hgb 13.8 Hct 39.2 MCV 88.2 MCH 31.0 MCHC 35.1 RDW 13.3 Plt Count 331 MPV 7.9 Neut # (Auto) 3.7 Lymph # (Auto) 1.6 [place] # (Auto) 0.3 Eos # (Auto) 0.2 Baso # (Auto) 0.1 Absolute Nucleated RBC 0.00 Nucleated RBC % 0.0 Sodium 138 Potassium 3.9 Chloride 102 Carbon Dioxide 24 Anion Gap 12.0 BUN 10 Creatinine 1.2 H Estimated GFR (MDRD) 46 L Glucose 90 Calcium 9.7 Total Bilirubin 1.4 H AST 30 ALT 20 Alkaline Phosphatase 104 Troponin I < 0.04 Total Protein 7.8 Albumin 4.4 Globulin 3.4 Albumin/Globulin Ratio 1.3 Lipase 22 - Rads (name of study) 1-view CXR Radiology: Prelim report reviewed, EMP read contemporaneously, See rad report (No acute cardiopulmonary abnormality.) PD MEDICAL DECISION MAKING - ED course Complexity details: reviewed old records, reviewed results, re-evaluated patient, considered differential, d/w patient, d/w family ED course: The patient's presentation is most consistent with gastroesophageal reflux. Cardiac ischemia was considered, but is less likely given that her electrocardiogram is unchanged from previous EKG, and troponin is negative several hours after onset of her symptoms. Chest x-ray reveals no evidence of congestive heart failure, pneumonia, pneumothorax, and I doubt pulmonary embolus. Treatment in the emergency department included administration of 4 baby aspirin orally, and sublingual nitroglycerin 3. Her symptoms were unchanged with the above treatment. A GI cocktail was administered and she had complete resolution of her symptoms. She is being discharged with prescription for omeprazole. I discussed with her and her daughter the diagnosis, symptomatic treatment and outpatient follow-up, as well as potentially worrisome signs or symptoms that should prompt reevaluation in the emergency department. Departure - Departure Disposition: 01 Home, Self Care Clinical Impression: Gastroesophageal reflux disease Qualifiers: Esophagitis presence: esophagitis presence not specified Qualified Code(s): K21.9 - Gastro-esophageal reflux disease without esophagitis Condition: Stable Instructions: ED GERD Follow-Up: Ino Bustos MD [Physician No Access] - Prescriptions: Omeprazole 20 mg PO DAILY #30 capsule. Comments: Continue omeprazole as prescribed. You can use liquid antacid, such as Maalox or Mylanta if you develop recurrent symptoms. Follow-up with your primary physician within 2 weeks. Call to schedule an appointment. Return to the emergency department if you develop increasing chest pain, shortness of breath, or otherwise worsening symptoms. Discharge Date/Time: 10/19/18 11:51
[2018-10-19 09:28] LABS: BASOPHILS # (AUTO) 0.1 10^3/uL (0.0-0.1); BASOPHILS % (AUTO) 0.9 %; EOSINOPHILS # (AUTO) 0.2 10^3/uL (0.0-0.7); EOSINOPHILS % (AUTO) 2.7 %; HGB - HEMOGLOBIN 13.8 g/dL (12.0-16.0); LYMPHOCYTES # (AUTO) 1.6 10^3/uL (1.5-3.5); LYMPHOCYTES % (AUTO) 27.4 %; MEAN CORPUSCULAR HGB CONC 35.1 g/dL (32.0-36.0); MEAN CORPUSCULAR VOLUME 88.2 fL (81.0-99.0); MEAN PLATELET VOLUME 7.9 fL (7.9-10.8); MONOCYTES # (AUTO) 0.3 10^3/uL (0.0-1.0); MONOCYTES % (AUTO) 5.4 %; NEUTROPHILS # (AUTO) 3.7 10^3/uL (1.5-6.6); NEUTROPHILS % (AUTO) 63.6 %; PLT - PLATELET COUNT 331 10^3/uL (130-450); RED BLOOD COUNT 4.45 10^6/uL (4.20-5.40); RED CELL DISTRIBUTION WIDTH 13.3 % (12.0-15.0); WHITE BLOOD COUNT 5.8 x10^3/uL (4.8-10.8)
--- NOTE | 2018-10-19 09:55 | XRAY Report ---
Reason: chest pain Procedure Date: 10/19/2018 Accession Number: [id number] / [id number] Procedure: XR - Chest 1 View X-Ray CPT Code: 17483 FULL RESULT: EXAM: CHEST RADIOGRAPHY EXAM DATE: 10/19/2018 09:36 AM. CLINICAL HISTORY: Chest pain. COMPARISON: Chest 1 view 12/19/2017 8:27 AM. TECHNIQUE: 1 view. FINDINGS: Lungs/Pleura: No focal opacities evident. No pleural effusion. No pneumothorax. Mediastinum: Within exam limitations, the cardiomediastinal contour is stable. Other: None. IMPRESSION: No acute cardiopulmonary abnormality. RADIA
[2018-10-19 10:03] LABS: ALBUMIN 4.4 g/dL (3.2-5.5); ALBUMIN/GLOBULIN RATIO 1.3 (1.0-2.2); BILIRUBIN,TOTAL 1.4 mg/dL (0.2-1.0); CALCIUM 9.7 mg/dL (8.5-10.3); CREATININE 1.2 mg/dL (0.4-1.0); TOTAL PROTEIN 7.8 g/dL (6.7-8.2)
[2018-10-19] MEDS ORDERED: LIDOCAINE VISCOUS 2% 15 ML UDC MM STA (10:07)
[2018-10-19] MEDS ORDERED: MAG HYDROX/AL HYDROX/SIMETH 30 ML UDC PO STA (10:07)
[2018-10-19 11:53] VITALS: BP 109/69
== END 2018-10-19 11:51 | disposition home or self-care (01) ==
LOC: ED 08:51
DX: K21.9 Gastro-esophageal reflux disease without esophagitis (principal); R94.31 Abnormal electrocardiogram [ECG] [EKG]; I11.0 Hypertensive heart disease with heart failure; I50.9 Heart failure, unspecified; I25.2 Old myocardial infarction; E78.00 Pure hypercholesterolemia, unspecified; F17.200 Nicotine dependence, unspecified, uncomplicated
CPT/HCPCS: 36415; 71045; 80053; 83690; 84484; 85025; 93005; 99284; 99285; A9270

== ENCOUNTER 2019-01-01 14:46 | Emergency (ER) | payer MEDICAID ==
[2019-01-01] MEDS ORDERED: HYDROmorphone 1 MG/ML CARPUJECT IVP STA ×2 (15:01→15:28)
[2019-01-01] MEDS ORDERED: ONDANSETRON 4 MG/2 ML VIAL IVP STA ×2 (15:02→17:16)
--- NOTE | 2019-01-01 15:18 | ED Physician Documentation ---
PD HPI ABD PAIN - Stated complaint Stated Complaint: WEAKNESS/RIGHT ARM PAIN - Chief complaint Chief Complaint: Cardiac - History obtained from History obtained from: Patient - History of Present Illness Timing - onset: Today Timing - details: Abrupt onset Severity Comments: episodic pain lasting minutes Quality: Sharp Location: Other (LUQ abd pain radiating to right arm.) - Treatment prior to arrival Treatment prior to arrival: Recent sono with her vasc surgeon concerning for occlusion of SMA stent. 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 Also H/O PE on xarelto, compliant per her. Review of Systems Constitutional: reports: Reviewed and negative Respiratory: reports: Dyspnea (2 days), Cough (2 days, non productive) GI: reports: Abdominal Pain. 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 Cardiovascular: Other HEENT: Other - Present Medications Home Medications: Ambulatory Orders Medication Instructions Recorded Confirmed RX: Promethazine [Phenergan] 25 mg PO Q8H PRN 02/14/16 10/31/17 RX: diazePAM [Diazepam] 5 mg PO Q8H PRN 02/14/16 10/31/17 RX: Fluoxetine HCl [Prozac] 20 mg PO DAILY 09/12/16 10/31/17 RX: Rivaroxaban [Xarelto] 15 mg PO BID 07/02/17 10/31/17 Albuterol Sulf [Ventolin Hfa 1 - 2 puffs INH Q4H PRN 10/31/17 10/31/17 Inhaler] Estradiol 0.5 mg PO DAILY 10/31/17 10/31/17 Oxycodone HCl/Acetaminophen 1 tab PO Q4H PRN 10/31/17 10/31/17 [Oxycodone-Acetaminophen 5-325] RX: Atorvastatin [Lipitor] 10 mg PO DAILY 10/31/17 10/31/17 RX: Cyclobenzaprine [Flexeril] 10 mg PO Q8H PRN 10/31/17 10/31/17 RX: Omeprazole 20 mg PO QDAC 10/31/17 10/31/17 hydroCHLOROthiazide 25 mg PO DAILY 10/31/17 10/31/17 [Hydrochlorothiazide] Benzonatate [Tessalon] 100 mg PO TID PRN #20 capsule 12/19/17 RX: Lidocaine Patch 5% [Lidoderm 1 each TOP DAILY PRN #10 patch 12/19/17 Patch] guaiFENesin/DEXTROMETHORPHAN 10 ml PO Q6H PRN #120 ml 12/19/17 [Robitussin Dm] RX: Potassium Bicarbonate 25 meq PO DAILY #10 tablet 04/10/18 [K-Effervescent] RX: Omeprazole 20 mg PO DAILY #30 capsule. 10/19/18 Ondansetron Odt [Zofran] 4 mg TL Q6H PRN #10 tablet 01/01/19 Oxycodone HCl/Acetaminophen 1 - 2 each PO Q6H PRN #14 tablet 01/01/19 [Percocet 5-325 mg Tablet] - Allergies Allergies/Adverse Reactions: Allergies Allergy/AdvReac Type Severity Reaction Status Date / Time codeine AdvReac Nausea Verified 01/01/19 14:53 simvastatin AdvReac Cramps Verified 01/01/19 14:53 - Social History Does the pt smoke?: Yes Smoking Status: Current every day smoker Does the pt drink ETOH?: No Does the pt have substance abuse?: Yes - Immunizations Immunizations are current?: Yes Immunizations: TDAP >10years/unknown - POLST Patient has POLST: No POLST Status: Full Code PD ED PE NORMAL - Vitals Vital signs reviewed: Yes - General General: Alert and oriented X 3, Other (uncomfortable with spasmodic intermittent severe pain.) - Cardiac Cardiac: RRR, No murmur - Respiratory Respiratory: No respiratory distress, Clear bilaterally - Abdomen Abdomen: Normal bowel sounds, Soft, Other (Mild Tender epigastric and LUQ without surgical signs.) - Back Back: No CVA TTP, No spinal TTP - Derm Derm: Normal color, Warm and dry - Extremities Extremities: No edema, No calf tenderness / cord, Other (normal BLE and BUE pulses) - Neuro Neuro: Alert and oriented X 3, Normal speech - Psych Psych: Normal mood, Normal affect Results - Vitals Vitals: Vital Signs - 24 hr 01/01/19 01/01/19 01/01/19 14:51 14:53 16:45 Temperature 36.7 C 36.7 C Heart Rate 77 77 77 Respiratory 18 18 16 Rate Blood Pressure 139/99 H 139/99 H 139/96 H O2 Saturation 99 99 96 01/01/19 18:14 Temperature Heart Rate 67 Respiratory 15 Rate Blood Pressure 121/70 O2 Saturation 96 Oxygen O2 Source Room air - EKG (time done) 1458 Rate: Rate (enter#) (69) Rhythm: NSR [place]: Normal Intervals: Normal MI QRS: Normal Ischemia: Other (flat t waves ewelina lateral, unchanged from 10/19/18) Compare to prior EKG: Unchanged from prior EKG Computer interpretation: Agree with computer - Labs Labs: Laboratory Tests 01/01/19 01/01/19 01/01/19 15:13 15:24 15:24 WBC 5.6 RBC 4.22 Hgb 12.9 Hct 37.6 MCV 89.3 MCH 30.6 MCHC 34.2 RDW 13.5 Plt Count 309 MPV 7.1 L Neut # (Auto) 2.7 Lymph # (Auto) 2.3 [place] # (Auto) 0.3 Eos # (Auto) 0.2 Baso # (Auto) 0.1 Absolute Nucleated RBC 0.00 Nucleated RBC % 0.0 PT 20.9 H INR 1.9 H Sodium Potassium Chloride Carbon Dioxide Anion Gap BUN Creatinine Estimated GFR (MDRD) Glucose Lactic Acid < 0.3 L Calcium Total Bilirubin AST ALT Alkaline Phosphatase Troponin I Total Protein Albumin Globulin Albumin/Globulin Ratio Lipase 01/01/19 01/01/19 15:24 15:24 WBC RBC Hgb Hct MCV MCH MCHC RDW Plt Count MPV Neut # (Auto) Lymph # (Auto) [place] # (Auto) Eos # (Auto) Baso # (Auto) Absolute Nucleated RBC Nucleated RBC % PT INR Sodium 141 Potassium 3.3 L Chloride 105 Carbon Dioxide 22 Anion Gap 14.0 H BUN 11 Creatinine 1.1 H Estimated GFR (MDRD) 50 L Glucose 93 Lactic Acid Calcium 9.4 Total Bilirubin 0.9 AST 25 ALT 18 Alkaline Phosphatase 104 Troponin I < 0.04 Total Protein 7.2 Albumin 3.8 Globulin 3.4 Albumin/Globulin Ratio 1.1 Lipase 30 - Rads (name of study) CTA Chest/Abd Radiology: EMP read contemporaneously (No dissection, there is concern for stent stenosis or occlusion of the SMA stent but she has good arterial flow distal to that.) PD MEDICAL DECISION MAKING - ED course ED course: 63-year-old woman with history of mesenteric ischemia and stent in the SMA presents with pain that is worrisome for recurrence of same, although her stent seems to be possibly occluded on CT her blood flow in the SMA is excellent. Case discussed by phone with Dr. Gonzalez in [place], and results reviewed and she feels like acute mesenteric ischemia is unlikely and she can be given a copy of her CAT scan and follow-up with her vascular surgeon for further outpatient workup. Her pain was controlled in the emergency department with 2 doses of narcotics after which she was pain-free but was having trouble with nausea due to same. Departure - Departure Disposition: 01 Home, Self Care Clinical Impression: Superior mesenteric artery stenosis, Atypical chest pain, Nausea and vomiting, Upper abdominal pain Condition: Stable Record reviewed to determine appropriate education?: Yes Instructions: ED Abdominal Pain Unkn Cause, ED Nausea Vomiting Prescriptions: Ondansetron Odt [Zofran] 4 mg TL Q6H PRN #10 tablet PRN Reason: Nausea / Vomiting Oxycodone HCl/Acetaminophen [Percocet 5-325 mg Tablet] 1 - 2 each PO Q6H PRN #14 tablet PRN Reason: pain Comments: Continue current medications. Call your vascular surgeon tomorrow to make the next available appointment. Let her know that we did the CAT scan here, when you go to that appointment take the copy of the CAT scan on CD with you. Return for new or worsening symptoms or if pain is uncontrolled. Discharge Date/Time: 01/01/19 18:21
[2019-01-01 15:38] LABS: BASOPHILS # (AUTO) 0.1 10^3/uL (0.0-0.1); BASOPHILS % (AUTO) 1.1 %; EOSINOPHILS # (AUTO) 0.2 10^3/uL (0.0-0.7); EOSINOPHILS % (AUTO) 3.2 %; HGB - HEMOGLOBIN 12.9 g/dL (12.0-16.0); LYMPHOCYTES # (AUTO) 2.3 10^3/uL (1.5-3.5); LYMPHOCYTES % (AUTO) 41.8 %; MEAN CORPUSCULAR HEMOGLOBIN 30.6 pg (27.0-31.0); MEAN CORPUSCULAR HGB CONC 34.2 g/dL (32.0-36.0); MEAN CORPUSCULAR VOLUME 89.3 fL (81.0-99.0); MEAN PLATELET VOLUME 7.1 fL (7.9-10.8); MONOCYTES # (AUTO) 0.3 10^3/uL (0.0-1.0); MONOCYTES % (AUTO) 5.7 %; NEUTROPHILS # (AUTO) 2.7 10^3/uL (1.5-6.6); NEUTROPHILS % (AUTO) 48.2 %; PLT - PLATELET COUNT 309 10^3/uL (130-450); RED BLOOD COUNT 4.22 10^6/uL (4.20-5.40); RED CELL DISTRIBUTION WIDTH 13.5 % (12.0-15.0); WHITE BLOOD COUNT 5.6 x10^3/uL (4.8-10.8)
[2019-01-01 15:44] LABS: INR 1.9 (0.8-1.2); PT - PROTHROMBIN TIME 20.9 secs (9.9-12.6)
[2019-01-01 15:51] LABS: ALBUMIN 3.8 g/dL (3.2-5.5); ALBUMIN/GLOBULIN RATIO 1.1 (1.0-2.2); BILIRUBIN,TOTAL 0.9 mg/dL (0.2-1.0); CALCIUM 9.4 mg/dL (8.5-10.3); CREATININE 1.1 mg/dL (0.4-1.0); TOTAL PROTEIN 7.2 g/dL (6.7-8.2)
[2019-01-01] MEDS ORDERED: diphenhydrAMINE INJ 50 MG/ML VIAL IVP STA (15:56)
[2019-01-01] MEDS ORDERED: IOVERSOL 320 100 ML VIAL IVP ONE ×2 (16:23→16:59)
--- NOTE | 2019-01-01 16:41 | CT Report ---
Reason: abd / chest pain, aorta protocol, IV only Procedure Date: 01/01/2019 Accession Number: [id number] / [id number] Procedure: CT - ANGIO CHEST W/WO CPT Code: FULL RESULT: EXAM: CT ANGIOGRAM CHEST EXAM DATE: 01/01/2019 04:21 PM. CLINICAL HISTORY: Abdominal and chest pain. COMPARISON: CHEST W/ 12/19/2017 10:31 AM. TECHNIQUE: Routine helical imaging was performed through the chest in the pulmonary arterial phase. IV Contrast: OPTI 320 100mL. Reconstructions: Coronal 3-D MIP reconstructions.Sagittal and coronal. In accordance with CT protocol optimization, one or more of the following dose reduction techniques were utilized for this exam: automated exposure control, adjustment of mA and/or KV based on patient size, or use of iterative reconstructive technique. FINDINGS: Pulmonary Arteries: Diagnostic quality: Adequate through the segmental arteries. No evidence for acute or chronic pulmonary emboli. RV/LV is within normal limits. There is no interventricular septal bowing. There is no reflux of contrast material in the IVC. Lungs/Pleura: No consolidation, nodules, or edema. No effusions or pneumothorax. Mediastinum: Normal. No cardiac enlargement or adenopathy. Thoracic Aorta: Unremarkable. No evidence of aneurysm, significant plaque or dissection. Upper Abdomen: Unremarkable. Other: Normal cardiac size. Virtually no coronary artery calcification. IMPRESSION: Normal chest CT angiogram. No evidence of pulmonary emboli. The thoracic aorta is normal. RADIA
--- NOTE | 2019-01-01 16:58 | CT Report ---
Reason: abd / chest pain, aorta protocol, IV only Procedure Date: 01/01/2019 Accession Number: [id number] / [id number] Procedure: CT - ANGIO ABDOMEN/PELVIS W CPT Code: FULL RESULT: EXAM: CT ANGIOGRAM ABDOMEN AND PELVIS WITH CONTRAST EXAM DATE: 01/01/2019 04:21 PM. CLINICAL HISTORY: Abdominal pain COMPARISONS: ABDOMEN/PELVIS W/ 04/10/2018 4:18 PM ABDOMEN/PELVIS ANGIO 03/31/2016 7:50 PM. TECHNIQUE: Routine helical CT angiogram imaging was performed through the abdomen and pelvis in the arterial phase. IV contrast: OPTI 320 100mL. Enteric contrast: No. Reconstructions: Coronal, sagittal, and 3D MIP reconstructions. In accordance with CT protocol optimization, one or more of the following dose reduction techniques were utilized for this exam: automated exposure control, adjustment of mA and/or KV based on patient size, or use of iterative reconstructive technique. FINDINGS: Vasculature: The abdominal aorta is normal in caliber. There is a superior mesenteric artery stent. Contrast opacification within the proximal and mid stent is not definitely seen. However, there is normal contrast opacification of the superior mesenteric artery at the distal margin of the stent, with normal opacification of the visualized SMA branches. The celiac and renal arteries demonstrate no acute abnormalities. The inferior mesenteric artery is normal. Lung Bases: Findings are detailed separately. Abdominal Solid Organs: Arterial phase imaging of the liver, spleen, pancreas, adrenal glands, and kidneys demonstrates no acute abnormalities. The gallbladder is within normal limits. No bile duct dilatation. Peritoneal Cavity: No dilated or thick-walled bowel is seen. No intraperitoneal free air or free fluid. No enlarged mesenteric or retroperitoneal lymph nodes. No evidence of appendicitis. Pelvic Organs: Normal. The bladder and visualized pelvic organs are within normal limits. Bones: No significant abnormality. Other: None. IMPRESSION: 1. There is no evidence of aortic dissection or aneurysm. 2. Superior mesenteric artery stent is in place. Contrast opacification within the proximal and mid portions of the stent is not definitely seen. It is unclear whether this represents a change from the previous study from 04/10/2018. However, there is normal contrast opacification of the superior mesenteric artery and its branches distal to the stent. 3. Arterial phase imaging of the solid abdominal organs is unremarkable. 4. No acute gastrointestinal tract abnormalities are seen. RADIA
[2019-01-01 18:15] VITALS: BP 121/70
== END 2019-01-01 18:21 | disposition home or self-care (01) ==
LOC: ED 14:46
DX: K55.1 Chronic vascular disorders of intestine (principal); R07.89 Other chest pain; R11.2 Nausea with vomiting, unspecified; R10.10 Upper abdominal pain, unspecified; I10 Essential (primary) hypertension; F17.200 Nicotine dependence, unspecified, uncomplicated; Z95.828 Presence of other vascular implants and grafts
CPT/HCPCS: 36415; 71275; 74174; 80053; 83605; 83690; 84484; 85025; 85610; 93005; 96374; 96375; 96376; 99284; J1170; J1200; Q9967

== ENCOUNTER 2019-07-14 09:15 | Emergency (ER) | payer MEDICAID ==
--- NOTE | 2019-07-14 10:49 | XRAY Report ---
Reason: fall Procedure Date: 07/14/2019 Accession Number: [id number] / [id number] Procedure: XR - Shoulder 3 View LT CPT Code: FULL RESULT: EXAM: LEFT SHOULDER RADIOGRAPHY EXAM DATE: 07/14/2019 10:15 AM. CLINICAL HISTORY: Fall. Left shoulder pain. Arm pain. COMPARISON: None. TECHNIQUE: 3 views. FINDINGS: Bones: No acute fracture or bony lesion. Type I acromion. Joints: Normal alignment. Mild degenerative changes. No dislocation. Soft tissues: The visualized hemithorax is unremarkable. No soft tissue swelling. IMPRESSION: 1. No acute osseous abnormalities. Normal alignment. 2. Mild degenerative changes. RADIA
--- NOTE | 2019-07-14 10:50 | ED Physician Documentation ---
PD HPI UPPER EXT INJURY - Stated complaint Stated Complaint: LT SHOULDER/ARM PX - Chief complaint Chief Complaint: Trauma Ext - History obtained from History obtained from: Patient, Family - History of Present Illness Location: Left, Shoulder, Arm Type of injury: Fall Where injury occurred: Home Timing - onset: How many days ago (2) Timing - duration: Days (2) Timing - details: Abrupt onset, Still present Improved by: Rest, Immobilization Worsened by: Moving, Palpating Associated symptoms: Swelling. No: Weakness, Numbness Contributing factors: Anticoagulated Similar symptoms before: Has not had sx before Recently seen: Surgery - Additonal information Additional information: 63-year-old female with advanced vascular disease has had a fall in her kitchen 2 days ago and she has injured her left shoulder and arm. She states that she is recently had a portion of her tailbone removed and following that she has been a bit unsteady on her feet recovering. She still has an issue with low potassium and has recently changed to a liquid potassium preparation. Review of Systems Constitutional: denies: Fever, Chills Eyes: denies: Decreased vision Ears: denies: Ear pain Nose: denies: Rhinorrhea / runny nose, Congestion Respiratory: denies: Cough GI: denies: Abdominal Pain, Vomiting : denies: Dysuria, Frequency Musculoskeletal: reports: Back pain, Extremity pain. 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 : None HEENT: None Psych: None Musculoskeletal: None Derm: None - Past Surgical History Past Surgical History: Yes General: Bowel surgery /DIFFUSION FURNACE OPERATOR: Hysterectomy Cardiovascular: Other HEENT: Other - Present Medications Home Medications: Ambulatory Orders Medication Instructions Recorded Confirmed Promethazine [Phenergan] 25 mg PO Q8H PRN 02/14/16 10/31/17 diazePAM [Diazepam] 5 mg PO Q8H PRN 02/14/16 10/31/17 Fluoxetine HCl [Prozac] 20 mg PO DAILY 09/12/16 10/31/17 Rivaroxaban [Xarelto] 15 mg PO BID 07/02/17 10/31/17 Albuterol Sulf [Ventolin Hfa 1 - 2 puffs INH Q4H PRN 10/31/17 10/31/17 Inhaler] Atorvastatin [Lipitor] 10 mg PO DAILY 10/31/17 10/31/17 Cyclobenzaprine [Flexeril] 10 mg PO Q8H PRN 10/31/17 10/31/17 Estradiol 0.5 mg PO DAILY 10/31/17 10/31/17 Omeprazole 20 mg PO QDAC 10/31/17 10/31/17 Oxycodone HCl/Acetaminophen 1 tab PO Q4H PRN 10/31/17 10/31/17 [Oxycodone-Acetaminophen 5-325] hydroCHLOROthiazide 25 mg PO DAILY 10/31/17 10/31/17 [Hydrochlorothiazide] Benzonatate [Tessalon] 100 mg PO TID PRN #20 capsule 12/19/17 Lidocaine Patch 5% [Lidoderm Patch] 1 each TOP DAILY PRN #10 patch 12/19/17 guaiFENesin/DEXTROMETHORPHAN 10 ml PO Q6H PRN #120 ml 12/19/17 [Robitussin Dm] Potassium Bicarbonate 25 meq PO DAILY #10 tablet 04/10/18 [K-Effervescent] Omeprazole 20 mg PO DAILY #30 capsule. 10/19/18 Ondansetron Odt [Zofran] 4 mg TL Q6H PRN #10 tablet 01/01/19 Oxycodone HCl/Acetaminophen 1 - 2 each PO Q6H PRN #14 tablet 01/01/19 [Percocet 5-325 mg Tablet] traMADol [Ultram] 50 - 100 mg PO Q6H PRN #20 tablet 07/14/19 - Allergies Allergies/Adverse Reactions: Allergies Allergy/AdvReac Type Severity Reaction Status Date / Time codeine AdvReac Nausea Verified 07/14/19 09:30 simvastatin AdvReac Cramps Verified 07/14/19 09:30 - Social History Does the pt smoke?: Yes Smoking Status: Current every day smoker Does the pt drink ETOH?: No Does the pt have substance abuse?: Yes - Immunizations Immunizations are current?: Yes Immunizations: TDAP >10years/unknown - POLST Patient has POLST: No POLST Status: Full Code PD ED PE NORMAL - Vitals Vital signs reviewed: Yes (hypertensive ) - General General: Alert and oriented X 3, No acute distress, Well developed/nourished - HEENT HEENT: Atraumatic, PERRL, EOMI - Neck Neck: Supple, no meningeal sign, No bony TTP - Respiratory Respiratory: No respiratory distress - Back Back: No CVA TTP, No spinal TTP - Derm Derm: Normal color, Warm and dry, No rash - Extremities Extremities: No deformity, Other (There is specific tenderness over the scapula on the left posteriorly. There is no deformity to the shoulder and she is able to make it through a ROM and she has pain to the mid shaft of the humerus as well as the lateral epicondyle. 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 No osseous abnormalities. Normal alignment. Mild degenerative changes.), EMP read indepedently, See rad report humerus Radiology: Prelim report reviewed (Impression: Normal humerus radiography.), EMP read indepedently, See rad report PD MEDICAL DECISION MAKING - ED course Complexity details: reviewed old records, reviewed results, re-evaluated patient, considered differential, d/w patient ED course: 63-year-old female with a fall in her kitchen has injured her left shoulder. She has some pain to the top of the shoulder as well as the humerus there is no evidence of fracture. She is placed into a sling she has some issue with pain medications causing vomiting and we will try some tramadol instead. Departure - Departure Disposition: 01 Home, Self Care Clinical Impression: Sprain of left shoulder Qualifiers: Encounter type: initial encounter Shoulder sprain type: unspecified sprain Qualified Code(s): S43.402A - Unspecified sprain of left shoulder joint, initial encounter Condition: Stable Instructions: ED Sprain Shoulder Follow-Up: GARY CASTLE MD [Primary Care Provider] - Prescriptions: traMADol [Ultram] 50 - 100 mg PO Q6H PRN #20 tablet PRN Reason: Pain
--- NOTE | 2019-07-14 11:38 | XRAY Report ---
Reason: fall mid shaft and lateral epicondyle pain Procedure Date: 07/14/2019 Accession Number: [id number] / [id number] Procedure: XR - Humerus LT CPT Code: FULL RESULT: EXAM: LEFT HUMERUS RADIOGRAPHY EXAM DATE: 07/14/2019 11:03 AM. CLINICAL HISTORY: Fall mid shaft and lateral epicondyle pain. COMPARISON: None. TECHNIQUE: 2 views. FINDINGS: Bones: Normal. No fractures or bone lesions. Joints: Normal. No effusions or subluxations in the visualized shoulder or elbow joints. Soft Tissues: Normal. No soft tissue swelling. IMPRESSION: Normal humerus radiography. [facility]
[2019-07-14 12:30] VITALS: BP 96/64
== END 2019-07-14 12:29 | disposition home or self-care (01) ==
LOC: ED 09:15
DX: S43.402A Unspecified sprain of left shoulder joint, initial encounter (principal); W19.XXXA Unspecified fall, initial encounter; Y92.000 Kitchen of unspecified non-institutional (private) residence as the place of occurrence of the external cause; F17.200 Nicotine dependence, unspecified, uncomplicated
CPT/HCPCS: 99283; 99284

== ENCOUNTER 2019-10-08 10:33 | Emergency (ER) | payer MEDICAID ==
[2019-10-08] MEDS ORDERED: HYDROmorphone 1 MG/ML CARPUJECT IVP STA (10:54)
[2019-10-08] MEDS ORDERED: SODIUM CHLORIDE 0.9% 1,000 ML IV ONE (10:54)
[2019-10-08] MEDS ORDERED: PROMETHAZINE INJ 25 MG in SODIUM CHLORIDE 0.9% 50 ML IV STA (10:54)
--- NOTE | 2019-10-08 10:56 | ED Physician Documentation ---
History of Present Illness - Stated complaint Stated Complaint: CP/SOA - History obtained from History obtained from: Patient - History of Present Illness Timing: Today Pain level now: 7 - Additonal information Additional information: This is a 63-year-old woman who presents with complaints that she is having chest pain and epigastric pain that began around 3 AM this morning. It woke her up and she rates it at a 6-7 out of 10 but it is in great been increasing through the entire week. She has 2 mesenteric stents and 1 of them is blocked she has a history of mesenteric ischemia and had to have a partial bowel resection she sees a vascular surgeon in [place] whom she called today and told her to come into the emergency department to have the stents evaluated. Patient has been off of her Xarelto for the past 3 weeks in preparation for a back procedure. She is feeling dizzy. She has nausea and vomiting. She has chronic diarrhea. She is complaining of her left eye hurting. She feels short of breath and has a history of pulmonary emboli. She reports diminished urinary output. Denies fever. Review of Systems Unable to obtain: Other (Writhing in acute pain) Constitutional: denies: Fever Eyes: reports: Other (Pressure in the left eye) Nose: denies: Rhinorrhea / runny nose Throat: denies: Sore throat Cardiac: reports: Chest pain / pressure GI: reports: Nausea, Vomiting, Diarrhea : reports: Other (Reports diminished urinary output). 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: Hysterectomy Cardiovascular: Other HEENT: Other - Present Medications Home Medications: Ambulatory Orders Medication Instructions Recorded Confirmed Promethazine [Phenergan] 25 mg PO Q8H PRN 02/14/16 10/31/17 diazePAM [Diazepam] 5 mg PO Q8H PRN 02/14/16 10/31/17 Fluoxetine HCl [Prozac] 20 mg PO DAILY 09/12/16 10/31/17 Rivaroxaban [Xarelto] 15 mg PO BID 07/02/17 10/31/17 Albuterol Sulf [Ventolin Hfa 1 - 2 puffs INH Q4H PRN 10/31/17 10/31/17 Inhaler] Atorvastatin [Lipitor] 10 mg PO DAILY 10/31/17 10/31/17 Cyclobenzaprine [Flexeril] 10 mg PO Q8H PRN 10/31/17 10/31/17 Omeprazole 20 mg PO QDAC 10/31/17 10/31/17 Oxycodone HCl/Acetaminophen 1 tab PO Q4H PRN 10/31/17 10/31/17 [Oxycodone-Acetaminophen 5-325] estradioL [Estradiol] 0.5 mg PO DAILY 10/31/17 10/31/17 hydroCHLOROthiazide 25 mg PO DAILY 10/31/17 10/31/17 [Hydrochlorothiazide] Benzonatate [Tessalon] 100 mg PO TID PRN #20 capsule 12/19/17 Lidocaine Patch 5% [Lidoderm Patch] 1 each TOP DAILY PRN #10 patch 12/19/17 guaiFENesin/DEXTROMETHORPHAN 10 ml PO Q6H PRN #120 ml 12/19/17 [Robitussin Dm] Potassium Bicarbonate 25 meq PO DAILY #10 tablet 04/10/18 [K-Effervescent] Omeprazole 20 mg PO DAILY #30 capsule. 10/19/18 Ondansetron Odt [Zofran] 4 mg TL Q6H PRN #10 tablet 01/01/19 Oxycodone HCl/Acetaminophen 1 - 2 each PO Q6H PRN #14 tablet 01/01/19 [Percocet 5-325 mg Tablet] traMADol [Ultram] 50 - 100 mg PO Q6H PRN #20 tablet 07/14/19 - Allergies Allergies/Adverse Reactions: Allergies Allergy/AdvReac Type Severity Reaction Status Date / Time codeine AdvReac Nausea Verified 10/08/19 10:57 simvastatin AdvReac Cramps Verified 10/08/19 10:57 - Social History Does the pt smoke?: Yes Smoking Status: Current every day smoker Does the pt drink ETOH?: No Does the pt have substance abuse?: Yes - Immunizations Immunizations are current?: Yes Immunizations: TDAP >10years/unknown - POLST Patient has POLST: No POLST Status: Full Code PD ED PE NORMAL - Vitals Vital signs reviewed: Yes - General General: Alert and oriented X 3, No acute distress, Well developed/nourished - HEENT HEENT: Atraumatic, PERRL, Moist mucous membranes - Cardiac Cardiac: RRR, No murmur, Strong equal pulses - Respiratory Respiratory: No respiratory distress, Clear bilaterally - Abdomen Abdomen: Normal bowel sounds, Soft, Other (She has diffuse pain through the abdomen with palpation but no guarding or rebound.) - Derm Derm: Normal color, Warm and dry, No rash - Extremities Extremities: No edema - Neuro Neuro: Alert and oriented X 3, No motor deficit, No sensory deficit, Normal speech Results - Vitals Vitals: Vital Signs - 24 hr 10/08/19 10/08/19 10/08/19 10:58 11:04 11:42 Temperature 36.5 C Heart Rate 78 99 73 Respiratory 22 18 14 Rate Blood Pressure 164/99 H 156/103 H 110/99 H O2 Saturation 100 99 98 10/08/19 10/08/19 10/08/19 12:33 13:54 14:00 Temperature Heart Rate 75 69 69 Respiratory 16 15 18 Rate Blood Pressure 128/81 H 111/82 H 94/76 O2 Saturation 99 97 98 Oxygen O2 Source Room air - EKG (time done) 1039 Rate: Rate (enter#) (77) Rhythm: NSR Intervals: No: Wide QRS Ischemia: ST depression (V2-V5) Other comments: Other comments (There is a lot of artifact on this EKG.) - Labs Labs: Laboratory Tests 10/08/19 10/08/19 10/08/19 10:53 10:53 10:53 WBC 7.8 RBC 4.67 Hgb 14.1 Hct 41.4 MCV 88.7 MCH 30.2 MCHC 34.1 RDW 12.7 Plt Count 358 MPV 9.4 Neut # (Auto) 4.6 Lymph # (Auto) 2.5 [place] # (Auto) 0.4 Eos # (Auto) 0.1 Baso # (Auto) 0.1 Absolute Nucleated RBC 0.00 Nucleated RBC % 0.0 Sodium 141 Potassium 3.1 L Chloride 99 L Carbon Dioxide 24 Anion Gap 18.0 H BUN 15 Creatinine 1.4 H Estimated GFR (MDRD) 38 L Glucose 99 Lactic Acid Calcium 9.6 Total Bilirubin 1.2 H AST 31 ALT 27 Alkaline Phosphatase 106 Troponin I High Sens 4.6 Total Protein 8.1 Albumin 4.6 Globulin 3.5 Albumin/Globulin Ratio 1.3 Lipase 39 10/08/19 11:20 WBC RBC Hgb Hct MCV MCH MCHC RDW Plt Count MPV Neut # (Auto) Lymph # (Auto) [place] # (Auto) Eos # (Auto) Baso # (Auto) Absolute Nucleated RBC Nucleated RBC % Sodium Potassium Chloride Carbon Dioxide Anion Gap BUN Creatinine Estimated GFR (MDRD) Glucose Lactic Acid 1.9 Calcium Total Bilirubin AST ALT Alkaline Phosphatase Troponin I High Sens Total Protein Albumin Globulin Albumin/Globulin Ratio Lipase - Rads (name of study) ct abd Radiology: See rad report PD MEDICAL DECISION MAKING - ED course ED course: Patient's potassium was slightly low at 3.1. Her lactic acid was 1.9. She had an IV started and was given a liter of fluid as well as a milligram of Dilaudid and 4 of Zofran IV. On reevaluation she was feeling much better. She was ordered for oral potassium after the CTs were cleared of any mesenteric clot. CT abdomen pelvis was read as patent celiac axis, distal SMA branches enhancing normally and inferior mesenteric artery also enhancing normally. I did call to speak with the vascular surgeon and Dr. Lloyd Was covering for Dr. Perez. He will pass the message on that the patient's arteries appeared clear. Departure - Departure Disposition: 01 Home, Self Care Clinical Impression: Abdominal pain Qualifiers: Abdominal location: epigastric Qualified Code(s): R10.13 - Epigastric pain Condition: Good Instructions: ED Abdominal Pain Unkn Cause Follow-Up: GARY CASTLE MD [Primary Care Provider] - Lyudmila Perez MD [Physician No Access] - Comments: Restart your Xarelto as soon as you are cleared to do so after the procedures. Follow-up with the vascular surgeon as needed.
[2019-10-08 11:01] LABS: BASOPHILS # (AUTO) 0.1 10^3/uL (0.0-0.1); BASOPHILS % (AUTO) 0.8 %; EOSINOPHILS # (AUTO) 0.1 10^3/uL (0.0-0.7); EOSINOPHILS % (AUTO) 1.8 %; HGB - HEMOGLOBIN 14.1 g/dL (12.0-16.0); LYMPHOCYTES # (AUTO) 2.5 10^3/uL (1.5-3.5); LYMPHOCYTES % (AUTO) 32.4 %; MEAN CORPUSCULAR HEMOGLOBIN 30.2 pg (27.0-31.0); MEAN CORPUSCULAR HGB CONC 34.1 g/dL (32.0-36.0); MEAN CORPUSCULAR VOLUME 88.7 fL (81.0-99.0); MEAN PLATELET VOLUME 9.4 fL (7.9-10.8); MONOCYTES # (AUTO) 0.4 10^3/uL (0.0-1.0); MONOCYTES % (AUTO) 5.7 %; NEUTROPHILS # (AUTO) 4.6 10^3/uL (1.5-6.6); NEUTROPHILS % (AUTO) 59.2 %; PLT - PLATELET COUNT 358 10^3/uL (130-450); RED BLOOD COUNT 4.67 10^6/uL (4.20-5.40); RED CELL DISTRIBUTION WIDTH 12.7 % (12.0-15.0); WHITE BLOOD COUNT 7.8 x10^3/uL (4.8-10.8)
[2019-10-08] MEDS ORDERED: IOVERSOL 320 100 ML VIAL IVP ONE ×2 (11:05→14:55)
[2019-10-08 11:33] LABS: ALBUMIN 4.6 g/dL (3.2-5.5); ALBUMIN/GLOBULIN RATIO 1.3 (1.0-2.2); BILIRUBIN,TOTAL 1.2 mg/dL (0.2-1.0); CALCIUM 9.6 mg/dL (8.5-10.3); CREATININE 1.4 mg/dL (0.4-1.0); TOTAL PROTEIN 8.1 g/dL (6.7-8.2)
--- NOTE | 2019-10-08 13:22 | CT Report ---
Reason: abdominal pain Procedure Date: 10/08/2019 Accession Number: [id number] / [id number] Procedure: CT - ANGIO ABDOMEN/PELVIS W CPT Code: Final Report FULL RESULT: EXAM: CT ANGIOGRAM ABDOMEN AND PELVIS WITH CONTRAST EXAM DATE: 10/08/2019 12:38 PM. CLINICAL HISTORY: Abdominal pain. COMPARISONS: ABDOMEN/PELVIS ANGIO 01/01/2019 4:10 PM. TECHNIQUE: Routine helical CT angiogram imaging was performed through the abdomen and pelvis in the arterial phase. IV contrast: OPTI 320 100ML. Enteric contrast: No. Reconstructions: Coronal, sagittal, and 3D MIP reconstructions. In accordance with CT protocol optimization, one or more of the following dose reduction techniques were utilized for this exam: automated exposure control, adjustment of mA and/or KV based on patient size, or use of iterative reconstructive technique. FINDINGS: Vasculature: There is minimal mural calcification consistent with atherosclerosis. The celiac axis is patent. There is a stent in the origin of the superior mesenteric artery. The distal SMA branches enhance normally. Minimal plaque is also seen in the common and external iliac arteries. The internal iliac arteries enhance normally. The renal arteries are patent. The inferior mesenteric artery also enhances. Lung Bases: Normal. Abdominal Solid Organs: Normal. The liver, spleen, pancreas, adrenal glands, gallbladder and kidneys are normal in size and demonstrate no masses or abnormal enhancement. Peritoneal Cavity: Normal. No free fluid, free air, or acute inflammatory process. Pelvic Organs: Prior hysterectomy. The bladder appears unremarkable. Bones: No significant abnormality. Other: None. IMPRESSION: 1. Stent in the superior mesenteric artery. 2. Minimal atheromatous plaque. RAD[facility]
--- NOTE | 2019-10-08 13:22 | CT Report ---
Reason: chest pain Procedure Date: 10/08/2019 Accession Number: [id number] / [id number] Procedure: CT - ANGIO CHEST W/WO CPT Code: Final Report FULL RESULT: EXAM: CT ANGIOGRAM CHEST EXAM DATE: 10/08/2019 12:38 PM. CLINICAL HISTORY: Chest pain. Abdominal pain. History of pulmonary embolism and mesenteric ischemia. COMPARISON: ABDOMEN/PELVIS ANGIO 01/01/2019 4:10 PM CHEST ANGIO 01/01/2019 4:10 PM. TECHNIQUE: Routine helical imaging was performed through the chest in the pulmonary arterial phase. IV Contrast: OPTI 320 100ML. Reconstructions: Coronal 3-D MIP reconstructions.Sagittal and coronal. In accordance with CT protocol optimization, one or more of the following dose reduction techniques were utilized for this exam: automated exposure control, adjustment of mA and/or KV based on patient size, or use of iterative reconstructive technique. FINDINGS: Pulmonary Arteries: Diagnostic quality: Adequate through the segmental arteries. No evidence for acute or chronic pulmonary emboli. RV/LV is within normal limits. There is no interventricular septal bowing. There is no reflux of contrast material in the IVC. Lungs/Pleura: Minimal motion artifact. No consolidation, nodules, or edema. No effusions or pneumothorax. Mediastinum: Normal. No cardiac enlargement or adenopathy. Thoracic Aorta: Minimal calcified plaque. No aneurysm or dissection. Upper Abdomen: See report of CT angiogram abdomen and pelvis performed concurrently. Other: Visualized body wall is unremarkable. Minimal lower thoracic degenerative disk disease. IMPRESSION: Normal pulmonary CT angiogram. No pulmonary emboli. [facility]
[2019-10-08] MEDS ORDERED: POTASSIUM CHLORIDE 20 MEQ TABLET PO STA (14:04)
[2019-10-08] MEDS ORDERED: POTASSIUM CHLORIDE 20 MEQ/15 ML UDC PO STA (14:16)
[2019-10-08 14:22] VITALS: BP 108/72
== END 2019-10-08 14:31 | disposition home or self-care (01) ==
LOC: ED 10:33
DX: R10.13 Epigastric pain (principal); R07.9 Chest pain, unspecified; E87.6 Hypokalemia; I11.0 Hypertensive heart disease with heart failure; I50.9 Heart failure, unspecified; I25.2 Old myocardial infarction; Z86.711 Personal history of pulmonary embolism; Z79.01 Long term (current) use of anticoagulants; F17.200 Nicotine dependence, unspecified, uncomplicated
CPT/HCPCS: 36415; 71275; 74174; 80053; 83605; 83690; 84484; 85025; 93005; 99282; 99283; A9270; J1170; J7040; Q9967

== ENCOUNTER 2020-07-22 22:09 | Outpatient (CLI) | payer MEDICAID | END 2020-07-22 22:10 | disposition critical access hospital (66) | LOC: EMS 22:09 | PROVIDERS: ATTEND Surgery | DX: R41.82 Altered mental status, unspecified (principal); R46.89 Other symptoms and signs involving appearance and behavior | CPT/HCPCS: A0425; A0427; A0999 ==

== ENCOUNTER 2020-07-22 22:19 | Emergency (ER) | payer MEDICAID ==
[2020-07-22] MEDS ORDERED: OLANZapine 10 MG VIAL IM STA (22:30)
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
[2020-07-22 23:13] LABS: BASOPHILS % (AUTO) 0.3 %; EOSINOPHILS # (AUTO) 0.1 10^3/uL (0.0-0.7); EOSINOPHILS % (AUTO) 1.1 %; HGB - HEMOGLOBIN 10.7 g/dL (12.0-16.0); LYMPHOCYTES # (AUTO) 2.5 10^3/uL (1.5-3.5); LYMPHOCYTES % (AUTO) 25.6 %; MEAN CORPUSCULAR HGB CONC 31.9 g/dL (32.0-36.0); MEAN CORPUSCULAR VOLUME 87.7 fL (81.0-99.0); MEAN PLATELET VOLUME 9.1 fL (7.9-10.8); MONOCYTES # (AUTO) 0.7 10^3/uL (0.0-1.0); MONOCYTES % (AUTO) 7.6 %; NEUTROPHILS # (AUTO) 6.2 10^3/uL (1.5-6.6); NEUTROPHILS % (AUTO) 65.1 %; PLT - PLATELET COUNT 319 10^3/uL (130-450); RED BLOOD COUNT 3.82 10^6/uL (4.20-5.40); RED CELL DISTRIBUTION WIDTH 14.5 % (12.0-15.0); WHITE BLOOD COUNT 9.6 x10^3/uL (4.8-10.8)
[2020-07-22 23:28] LABS: ACETAMINOPHEN < 10 ug/mL (10-30); ALBUMIN 4.2 g/dL (3.2-5.5); ALBUMIN/GLOBULIN RATIO 1.6 (1.0-2.2); ALKALINE PHOSPHATASE 81 IU/L (42-121); ALT ALANINE AMINOTRANSFERASE 23 IU/L (10-60); AST ASPARTATE AMINOTRANSFERASE 17 IU/L (10-42); BILIRUBIN,TOTAL 1.1 mg/dL (0.2-1.0); BUN - BLOOD UREA NITROGEN 14 mg/dL (6-20); CARBON DIOXIDE - CO2 29 mmol/L (21-32); CHLORIDE 95 mmol/L (101-111); CREATININE 1.2 mg/dL (0.4-1.0); GLUCOSE 109 mg/dL (70-100); LIPASE 31 U/L (22-51); SALICYLATE < 6.0 mg/dL; SODIUM 137 mmol/L (135-145); TOTAL PROTEIN 6.8 g/dL (6.7-8.2)
[2020-07-22] MEDS ORDERED: POTASSIUM CHLOR 10 MEQ/100 ML 10 MEQ/100 ML BAG IV SCH (23:45)
[2020-07-23 03:10] LABS: BILIRUBIN,URINE NEGATIVE (NEGATIVE); GLUCOSE, URINE (UA) NEGATIVE (NEGATIVE); KETONES,URINE (UA) NEGATIVE (NEGATIVE); LEUKOCYTE ESTERASE, URINE NEGATIVE (NEGATIVE); MUDS CUTOFF CONCENTRATIONS CUTOFF CONC BELOW:; NITRITE,URINE NEGATIVE (NEGATIVE); OCCULT BLOOD,URINE NEGATIVE (NEGATIVE); PH,URINE 5.5 PH (5.0-7.5); PROTEIN,URINE NEGATIVE (NEGATIVE); UROBILINOGEN,URINE 0.2 (NORMAL) E.U./dL (NORMAL)
[2020-07-23 03:13] LABS: CLARITY,URINE CLEAR (CLEAR)
[2020-07-23 03:20] LABS: AMPHETAMINE SCREEN,URINE NEGATIVE (NEGATIVE); BENZODIAZEPINES SCREEN, URINE NEGATIVE (NEGATIVE); COCAINE SCREEN URINE NEGATIVE (NEGATIVE); METHADONE SCREEN, URINE NEGATIVE (NEGATIVE); METHAMPHETAMINES SCREEN, URINE NEGATIVE (NEGATIVE); OPIATE SCREEN, URINE NEGATIVE (NEGATIVE); OXYCODONE SCREEN, URINE NEGATIVE (NEGATIVE); PROPOXYPHENE SCREEN, URINE NEGATIVE (NEGATIVE); TRICYCLIC ANTIDEPRESSANT,URINE NEGATIVE (NEGATIVE)
[2020-07-23 03:30] VITALS: BP 110/68
== END 2020-07-23 04:00 | disposition home or self-care (01) ==
LOC: EDUNIT# → ED 22:19
DX: E87.6 Hypokalemia (principal); R45.1 Restlessness and agitation; Z78.1 Physical restraint status; G47.00 Insomnia, unspecified; F20.9 Schizophrenia, unspecified; Z20.828 Contact with and (suspected) exposure to other viral communicable diseases; I10 Essential (primary) hypertension; Z79.01 Long term (current) use of anticoagulants; F17.200 Nicotine dependence, unspecified, uncomplicated
CPT/HCPCS: 36415; 80053; 80306; 80307; 80320; 80329; 81001; 81003; 83690; 84443; 85025; 87086; 96365; 99281